=== PATIENT | female | born 1975 | race Caucasian/White ===

== ENCOUNTER 2016-06-12 17:41 | Emergency (ER) | payer MEDICARE, MEDICAID ==
--- NOTE | 2016-06-12 17:52 | ER Document Report ---
ED Medical Screen (RME) - General Stated Complaint: DIFFICULTY BREATHING/ HIVES Time seen by provider: 17:48 Mode of Arrival: Ambulatory Information source: Patient Notes: 41-year-old female presents to ED for shortness of breath. She states she's been here multiple times for breathing problems due to mold in her house. Today she feels like someone is squeezing her lungs and the hives had just started about 2 weeks ago. She states no new medications and no changes. Primary doctor is Dr Flores who she sees moderately due to her long problems with the mold in her house she states the itching and she is scratching them and has multiple scratches. She states her wheezing is much worse. I have greeted and performed a rapid initial assessment of this patient. A comprehensive ED assessment and evaluation of the patient, analysis of test results and completion of medical decision making process will be conducted by an additional ED providers. TRAVEL OUTSIDE OF THE [place] IN LAST 30 DAYS: No - Related Data Allergies/Adverse Reactions: cefuroxime axetil [From Ceftin] Allergy (Intermediate, Verified 06/12/16 17:44) Hives voriconazole [From Vfend] Adverse Reaction (Mild, Verified 06/12/16 17:44) Skin Redness Past Medical History - Past Medical History Cardiac Medical History: Denies: Hx Coronary Artery Disease, Hx Heart Attack, Hx Hypertension, Hx Pulmonary Embolism Pulmonary Medical History: Reports: Hx Asthma, Hx Bronchitis, Hx COPD - inhalers , Hx Pneumonia Denies: Hx Respiratory Failure, Hx Sleep Apnea, Hx Tuberculosis Neurological Medical History: Reports: Hx Cerebrovascular Accident - 1999,no residual. Denies: Hx Seizures Renal/ Medical History: Denies: Hx Kidney Stones, Hx Peritoneal Dialysis Malignancy Medical History: Denies: Hx Lung Cancer Musculoskeltal Medical History: Reports Hx Arthritis - RA Psychiatric Medical History: Reports: Hx Anxiety, Hx Depression Past Surgical History: Reports: Hx Section - x 3, Hx Tubal Ligation. Denies: Hx Pacemaker - Immunizations Immunizations up to date: Yes Hx Diphtheria, Pertussis, Tetanus Vaccination: Yes Physical Exam - Vital signs Vitals: Temp Pulse Resp BP Pulse Ox 97.5 F 115 H 20 135/78 H 100 06/12/16 17:46 06/12/16 17:46 06/12/16 17:46 06/12/16 17:46 06/12/16 17:46 Course - Vital Signs Vital signs: Temp Pulse Resp BP Pulse Ox 97.5 F 115 H 20 135/78 H 100 06/12/16 17:46 06/12/16 17:46 06/12/16 17:46 06/12/16 17:46 06/12/16 17:46
[2016-06-12 18:16] LABS: ABSOLUTE BASOPHILS # (AUTO) 0.1 10^3/uL (0.0-0.2); ABSOLUTE EOSINOPHILS # (AUTO) 0.2 10^3/uL (0.0-0.6); ABSOLUTE LYMPHOCYTES (AUTO) 2.7 10^3/uL (0.5-4.7); ABSOLUTE MONOCYTES (AUTO) 0.7 10^3/uL (0.1-1.4); ABSOLUTE NEUT (AUTO) 5.1 10^3/uL (1.7-8.2); BASOPHILS % (AUTO) 0.6 % (0-2); HEMATOCRIT 39.4 % (36.0-47.0); HEMOGLOBIN 12.6 g/dL (12.0-15.5); HGB HCT DIFFERENCE -1.6; LYMPHOCYTES % (AUTO) 30.9 % (13-45); MEAN CORPUSCULAR HEMOGLOBIN 27.8 pg (27.0-33.4); MEAN CORPUSCULAR VOLUME 87 fl (80-97); MONOCYTES % (AUTO) 7.7 % (3-13); RED BLOOD COUNT 4.53 10^6/uL (3.72-5.28); SEGMENTED NEUTROPHILS % (AUTO) 58.8 % (42-78); WHITE BLOOD COUNT 8.6 10^3/uL (4.0-10.5)
[2016-06-12 18:43] LABS: ALANINE AMINOTRANSFERASE 24 U/L (9-52); ALBUMIN 4.5 g/dL (3.5-5.0); ALKALINE PHOSPHATASE 104 U/L (38-126); ANION GAP 16 (5-19); ASPARTATE AMINO TRANSFERASE 35 U/L (14-36); BILIRUBIN,TOTAL 0.5 mg/dL (0.2-1.3); BLOOD UREA NITROGEN 9 mg/dL (7-20); CARBON DIOXIDE 21 mmol/L (22-30); CHLORIDE 102 mmol/L (98-107); CREATININE RESULT 0.88 mg/dL (0.52-1.25); GLUCOSE 180 mg/dL (75-110); POTASSIUM 3.9 mmol/L (3.6-5.0); SODIUM 138.6 mmol/L (137-145); TOTAL PROTEIN 7.4 g/dL (6.3-8.2)
[2016-06-12] MEDS ORDERED: HYDROXYZINE PAMOATE 25 MG CAPSULE #4 (ER DISP) PO ONE (19:32)
--- NOTE | 2016-06-12 19:38 | ER Document Report ---
ED General - General Chief Complaint: Breathing Difficulty Stated Complaint: DIFFICULTY BREATHING/ HIVES Mode of Arrival: Ambulatory TRAVEL OUTSIDE OF THE [place] 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 Patient denies any fevers chills nausea vomiting. Patient states she is waiting to be placed on an experimental drug trial for her asthma and that her club attendant is concerned about the hives that she would not be allowed to be on the experimental drug trial. Otherwise patient has no obvious distress - Related Data Allergies/Adverse Reactions: cefuroxime axetil [From Ceftin] Allergy (Intermediate, Verified 06/12/16 17:44) Hives voriconazole [From Vfend] Adverse Reaction (Mild, Verified 06/12/16 17:44) Skin Redness Past Medical History - General Information source: Patient - Social History Smoking Status: Never Smoker Chew tobacco use (# tins/day): No Family History: Reviewed & Not Pertinent Patient has suicidal ideation: No Patient has homicidal ideation: No - Past Medical History Cardiac Medical History: Denies: Hx Coronary Artery Disease, Hx Heart Attack, Hx Hypertension, Hx Pulmonary Embolism Pulmonary Medical History: Reports: Hx Asthma, Hx Bronchitis, Hx COPD - inhalers , Hx Pneumonia Denies: Hx Respiratory Failure, Hx Sleep Apnea, Hx Tuberculosis Neurological Medical History: Reports: Hx Cerebrovascular Accident - 1999,no residual. Denies: Hx Seizures Renal/ Medical History: Denies: Hx Kidney Stones, Hx Peritoneal Dialysis Malignancy Medical History: Denies: Hx Lung Cancer Musculoskeltal Medical History: Reports Hx Arthritis - RA Psychiatric Medical History: Reports: Hx Anxiety, Hx Depression Past Surgical History: Reports: Hx Section - x 3, Hx Tubal Ligation. Denies: Hx Pacemaker - Immunizations Immunizations up to date: Yes Hx Diphtheria, Pertussis, Tetanus Vaccination: Yes Hx Pneumococcal Vaccination: 03/25/13 Review of Systems - Review of Systems Constitutional: No symptoms reported EENT: No symptoms reported Cardiovascular: No symptoms reported Respiratory: Short of breath Gastrointestinal: No symptoms reported Genitourinary: No symptoms reported Female Genitourinary: No symptoms reported Musculoskeletal: No symptoms reported Skin: Other - Rash Hematologic/Lymphatic: No symptoms reported Neurological/Psychological: No symptoms reported -: Yes All other systems reviewed and negative Physical Exam - Vital signs Vitals: Temp Pulse Resp BP Pulse Ox 97.5 F 115 H 20 135/78 H 100 06/12/16 17:46 06/12/16 17:46 06/12/16 17:46 06/12/16 17:46 06/12/16 17:46 Interpretation: Normal - General General appearance: Appears well, Alert - HEENT Head: Normocephalic, Atraumatic Eyes: Normal Pupils: PERRL - Respiratory Respiratory status: No respiratory distress Chest status: Nontender Breath sounds: Normal Chest palpation: Normal - Cardiovascular Rhythm: Regular Heart sounds: Normal auscultation Murmur: No - Abdominal Inspection: Normal Distension: No distension Bowel sounds: Normal Tenderness: Nontender Organomegaly: No organomegaly - Back Back: Normal, Nontender - Extremities General upper extremity: Normal inspection, Nontender, Normal color, Normal ROM , Normal temperature General lower extremity: Normal inspection, Nontender, Normal color, Normal ROM , Normal temperature, Normal weight bearing. No: Adonay's sign - Neurological Neuro grossly intact: Yes Cognition: Normal Orientation: AAOx4 [place] Coma Scale Eye Opening: Spontaneous [place] Coma Scale Verbal: Oriented [place] Coma Scale Motor: Obeys Commands [place] Coma Scale Total: 15 Speech: Normal Motor strength normal: LUE, RUE, LLE, RLE Sensory: Normal - Psychological Associated symptoms: Normal affect, Normal mood - Skin Skin Temperature: Warm Skin Moisture: Dry Skin Color: Other - Diffuse rash blanchable Course - Re-evaluation Re-evalutation: 06/12/16 23:06 Patient with a nondescriptive hives. Patient will be given Atarax patient was encouraged follow-up with her primary care physician. - Vital Signs Vital signs: Temp Pulse Resp BP Pulse Ox 98 F 78 18 113/62 100 06/12/16 19:44 06/12/16 19:44 06/12/16 19:44 06/12/16 19:44 06/12/16 19:44 - Laboratory Result Diagrams: 06/12/16 17:56 06/12/16 17:56 Laboratory results interpreted by me: 06/12/16 17:56 Carbon Dioxide 21 L Glucose 180 H Discharge - Discharge Clinical Impression: Hives Asthma Qualifiers: Asthma severity: unspecified severity Asthma complication type: uncomplicated Qualified Code(s): J45.909 - Unspecified asthma, uncomplicated Condition: Good Disposition: HOME, SELF-CARE Instructions: Asthma ([facility]), Acute Urticaria ([facility]) Additional Instructions: Take medications as prescribed. Return to the ER symptoms worsen. Continue her home medications as present prescribed Follow-up with your physician in 2-3 days Prescriptions: Hydroxyzine Pamoate [Vistaril 25 mg Capsule] 25 mg PO Q6 #14 capsule Referrals: CHIDI PEREYRA MD [Primary Care Provider] - Follow up as needed
[2016-06-12 19:48] VITALS: BP 113/62
== END 2016-06-12 19:44 | disposition home or self-care (01) ==
LOC: ER 17:41 → EEVIPCON 17:41 → ER 19:44
DX: J45.909 Unspecified asthma, uncomplicated (principal); L50.9 Urticaria, unspecified; R06.02 Shortness of breath
CPT/HCPCS: 99283; 36415; 84703; 85025; 80053; 71020; J3490

== ENCOUNTER 2016-12-22 18:24 | Emergency (ER) | payer MEDICARE, MEDICAID ==
[2016-12-22] MEDS ORDERED: IPRATROPIUM/ALBUTEROL 0.5-2.5 MG/3 ML AMPUL NEB ONE (18:51)
--- NOTE | 2016-12-22 18:55 | ER Document Report ---
ED Medical Screen (RME) - General Chief Complaint: Shortness Of Breath Stated Complaint: COUGH Time Seen by Provider: 12/22/16 18:50 Notes: Patient states she has a history of chronic lung disease and is followed by pulmonology. She states that over the last several days she is a worse cough and or shortness of breath. She has been using her nebulizer at home with no relief. She also uses multiple inhalers with no relief. She also takes daily 10 mg p.o. prednisone. TRAVEL OUTSIDE OF THE [place] IN LAST 30 DAYS: No - Related Data Allergies/Adverse Reactions: cefuroxime axetil [From Ceftin] Allergy (Intermediate, Verified 12/22/16 18:28) Hives voriconazole [From Vfend] Adverse Reaction (Mild, Verified 12/22/16 18:28) Skin Redness Past Medical History - Social History Chew tobacco use (# tins/day): No Frequency of alcohol use: Rare Drug Abuse: None - Past Medical History Cardiac Medical History: Denies: Hx Coronary Artery Disease, Hx Heart Attack, Hx Hypertension, Hx Pulmonary Embolism Pulmonary Medical History: Reports: Hx Asthma, Hx Bronchitis, Hx COPD - inhalers , Hx Pneumonia Denies: Hx Respiratory Failure, Hx Sleep Apnea, Hx Tuberculosis Neurological Medical History: Reports: Hx Cerebrovascular Accident - 1999,no residual. Denies: Hx Seizures Renal/ Medical History: Denies: Hx Kidney Stones, Hx Peritoneal Dialysis Malignancy Medical History: Denies: Hx Lung Cancer Musculoskeltal Medical History: Reports Hx Arthritis - RA Psychiatric Medical History: Reports: Hx Anxiety, Hx Depression Past Surgical History: Reports: Hx Section - x 3, Hx Tubal Ligation. Denies: Hx Pacemaker - Immunizations Immunizations up to date: Yes Hx Diphtheria, Pertussis, Tetanus Vaccination: Yes Physical Exam - Vital signs Vitals: Temp Pulse Resp BP Pulse Ox 98.8 F 112 H 20 110/64 98 12/22/16 18:28 12/22/16 18:28 12/22/16 18:28 12/22/16 18:28 12/22/16 18:28 Course - Vital Signs Vital signs: Temp Pulse Resp BP Pulse Ox 98.8 F 112 H 20 110/64 98 12/22/16 18:28 12/22/16 18:28 12/22/16 18:28 12/22/16 18:28 12/22/16 18:28
[2016-12-22] MEDS ORDERED: METHYLPREDNISOLONE INJ 125 MG/2 ML SDV IV ONE (19:34)
[2016-12-22] MEDS ORDERED: MAGNESIUM SULFATE/D5W 100 ML IV ONE (19:40)
--- NOTE | 2016-12-22 19:48 | ER Document Report ---
ED Respiratory Problem - General Chief Complaint: Shortness Of Breath Stated Complaint: COUGH Time Seen by Provider: 12/22/16 18:50 Mode of Arrival: Ambulatory Information source: Patient Notes: 41-year-old female presents to ED for difficulty breathing with a history of COPD and multiple other lung diseases. She states she has never smoked. She has had worsening of her cough and shortness of breath over the left last several days. She states she just got back from [place] where she went for her anniversary. 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 She states she has been using her nebulizer at home with no relief. She is on multiple inhalers to include Pulmicort with no relief. She also takes daily 10 mg of prednisone. She states she was scheduled to see her informatics consultant on the but he had an emergency out of town and was not able to see her and she is supposed to call him when she returns from [place] which she returned today. TRAVEL OUTSIDE OF THE [place] IN LAST 30 DAYS: No - HPI Patient complains to provider of: COPD, Cough, Short of breath Onset: Other - Chronic worse for the last couple days Duration: Worse/persistent Initiating Event: URI, Other - Travel Quality of pain: Achy, Other - tight Severity: Moderate Pain Level: 4 Context: Hx COPD Short of Breath: Moderate Cough: Nonproductive Sputum amount: None At home treatment: Bronchodilators, Inhaled steroids, Oral steroids Associated symptoms: Cough, Short of breath, Wheezing Similar symptoms previously: Yes Recently seen / treated by doctor: No - Related Data Allergies/Adverse Reactions: cefuroxime axetil [From Ceftin] Allergy (Intermediate, Verified 12/22/16 18:28) Hives voriconazole [From Vfend] Adverse Reaction (Mild, Verified 12/22/16 18:28) Skin Redness Past Medical History - General Information source: Patient - Social History Smoking Status: Never Smoker Cigarette use (# per day): No Chew tobacco use (# tins/day): No Smoking Education Provided: No - Patient. Patient Frequency of alcohol use: Rare Drug Abuse: None Lives with: Family Family History: Reviewed & Not Pertinent - Past Medical History Cardiac Medical History: Reports: None Pulmonary Medical History: Reports: Hx Bronchitis, Hx COPD - inhalers, Hx Pneumonia Neurological Medical History: Reports: Hx Cerebrovascular Accident - 1999,no residual Endocrine Medical History: Reports: None Renal/ Medical History: Reports: None Malignancy Medical History: Reports: None GI Medical History: Reports: None Musculoskeltal Medical History: Reports Hx Arthritis - RA Skin Medical History: Reports None Psychiatric Medical History: Reports: Hx Anxiety, Hx Depression Traumatic Medical History: Reports: None Infectious Medical History: Reports: None Past Surgical History: Reports: Hx Section - x 3, Hx Tubal Ligation - Immunizations Immunizations up to date: Yes Hx Diphtheria, Pertussis, Tetanus Vaccination: Yes Hx Pneumococcal Vaccination: 03/25/13 Review of Systems - Review of Systems Constitutional: No symptoms reported EENT: No symptoms reported Cardiovascular: No symptoms reported Respiratory: Cough, Short of breath, Wheezing Gastrointestinal: No symptoms reported Genitourinary: No symptoms reported Female Genitourinary: No symptoms reported Musculoskeletal: No symptoms reported Skin: No symptoms reported Hematologic/Lymphatic: No symptoms reported Neurological/Psychological: No symptoms reported -: Yes All other systems reviewed and negative Physical Exam - Vital signs Vitals: Temp Pulse Resp BP Pulse Ox 98.8 F 112 H 20 110/64 98 12/22/16 18:28 12/22/16 18:28 12/22/16 18:28 12/22/16 18:28 12/22/16 18:28 Interpretation: Normal - General General appearance: Appears well, Alert - HEENT Head: Normocephalic, Atraumatic Eyes: Normal Pupils: PERRL Ears: Normal External canal: Normal Tympanic membrane: Normal Nasal: Swelling, Clear rhinorrhea Pharynx: Normal Neck: Normal - Respiratory Respiratory status: No respiratory distress Chest status: Nontender Breath sounds: Decreased air movement, Nonproductive cough, Wheezing Chest palpation: Normal - Cardiovascular Rhythm: Regular Heart sounds: Normal auscultation Murmur: No - Abdominal Inspection: Normal Distension: No distension Bowel sounds: Normal Tenderness: Nontender Organomegaly: No organomegaly - Back Back: Normal, Nontender - Extremities General upper extremity: Normal inspection, Nontender, Normal color, Normal ROM , Normal temperature General lower extremity: Normal inspection, Nontender, Normal color, Normal ROM , Normal temperature, Normal weight bearing. No: Adonay's sign - Neurological Neuro grossly intact: Yes Cognition: Normal Orientation: AAOx4 [place]nes Coma Scale Eye Opening: Spontaneous [place] Coma Scale Verbal: Oriented [place] Coma Scale Motor: Obeys Commands [place] Coma Scale Total: 15 Speech: Normal Motor strength normal: LUE, RUE, LLE, RLE Sensory: Normal - Psychological Associated symptoms: Normal affect, Normal mood - Skin Skin Temperature: Warm Skin Moisture: Dry Skin Color: Normal Course - Re-evaluation Re-evalutation: 12/23/16 07:44 Patient is very short of breath with wheezing. She was treated with Solu- Medrol albuterol DuoNeb and magnesium. She was then monitored until she was able to walk and keep her sats up with no elevation and pulse that she was discharged home with prescription for prednisone. She states she has albuterol nebulizer and inhaler as well as Pulmicort. - Vital Signs Vital signs: Temp Pulse Resp BP Pulse Ox 98.2 F 100 18 117/71 97 12/23/16 01:10 12/23/16 01:10 12/23/16 01:10 12/23/16 01:10 12/23/16 01:10 - Laboratory Result Diagrams: 12/22/16 20:22 12/22/16 21:30 Laboratory results interpreted by me: 12/22/16 12/22/16 12/22/16 20:22 20:22 21:30 Hgb 8.2 L Hct 26.0 L MCV 65 L MCH 20.3 L MCHC 31.4 L RDW 17.4 H Eosinophils % 6.9 H Glucose 111 H Magnesium 2.4 H Ferritin 5.26 L Vitamin B12 217.0 L Urine Urobilinogen 4.0 H Discharge - Discharge Clinical Impression: COPD exacerbation Anemia Qualifiers: Anemia type: unspecified type Qualified Code(s): D64.9 - Anemia, unspecified Condition: Stable Disposition: HOME, SELF-CARE Additional Instructions: Chronic Obstructive Lung Disease You have chronic obstructive lung disease (COPD). The symptoms come from emphysema (damage to small airways, with trapping of air in large sacks in the lung) and chronic bronchitis (repeated infection and damage to larger airways). The cause is almost always cigarette smoking, although dust exposure, asthma, and infections contribute. You should avoid fumes, dust, and smoke (especially tobacco smoke). Your condition will flare from time to time. There is no cure, but the symptoms can be treated. Bronchodilators (asthma medicine) are often helpful. Antibiotics help when infection is present. When shortness of breath is severe, we may prescribe cortisone medication. If medicine doesn't help enough, we can arrange for you to have an oxygen tank at home. Notify your doctor at once if sputum becomes thick, foul, or bloody, if you develop a fever or chest pain, or if your shortness of breath worsens. STEROID MEDICATION: You have been given an injection of or oral medicine of the cortisone/ steroid class. This medication is used to control inflammation or allergy. Stew t is usually only given for a short period of time, until the acute process subsides. There are usually no side effects from short-term use of cortisone-like medications. Some persons feel an increased sense of well-being and are not sleepy at bedtime. Long-term use of cortisone medications is best avoided, unless required for a severe condition. If your condition does not remit, or relapses after the course of corticosteroid medication, you should consult your physician. INHALED BRONCHODILATORS: You have received treatment(s) of and/or prescription for an inhaled bronchodilator -- a medication which stimulates the airways in the lung to dilate. This improves the flow of air in asthma, bronchitis, and emphysema. These medicines have some similarity to adrenaline, and can cause similar side effects: shakiness, racing heart, and a sense of nervousness. These side effects decrease with time. Contact your doctor if these side effects are severe. Do not over-use the medicine. Too-frequent use of the inhaler may make it ineffective. Call your doctor if the inhaler is not controlling your symptoms at the prescribed doses. SMOKING: If you smoke, you should stop smoking. The tar and chemicals in cigarette smoke are harmful. Smoking has been shown to cause: emphysema chronic bronchitis lung cancer mouth and throat cancer stomach and pancreas cancer premature aging defects In addition, smoking increases ear and lung infections in children of smokers. AZITHROMYCIN: Azithromycin (Zithromax) is a broad spectrum antibiotic in the same class as erythromycin. It can treat a variety of bacterial infections, but is most frequently used for respiratory infections. Azithromycin is extremely long-lasting. It accumulates in body tissues and continues to kill bacteria for many days. In order to improve absorption, Azithromycin should be taken at least one hour before or two hours after a meal. It does not have the same strong tendency to upset the stomach as erythromycin and is usually very well tolerated. Patients who have had a rash or other true allergic reactions to erythromycin should not take this medication. Call if you develop gastrointestinal distress, severe diarrhea, rash, hives, itching, or shortness of breath. USE OF ACETAMINOPHEN (Tylenol): Acetaminophen may be taken for pain relief or fever control. It's much safer than aspirin, offering a wider range of "safe" dosages. It is safe during . Some brand names are Tylenol, Panadol, Datril, Anacin 3, Tempra, and Liquiprin. Acetaminophen can be repeated every four hours. The following are maximum recommended dosages: WEIGHT Dose Drops Elixir Chewable( 80mg) (LBS.) drprs=droppers tsp=teaspoon 6 40 mg 0.4 ml (1/2) 6-11 80 mg 0.8 ml (full) tsp 1 tab 12-16 120 mg 1 1/2 drprs 3/4 tsp 1 1/2 tabs 17-23 160 mg 2 drprs 1 tsp 2 tabs 24-30 240 mg 3 drprs 1 1/2 tsp 3 tabs 30-35 320 mg 2 tsp 4 tabs 36-41 360 mg 2 1/4 tsp 4 1/2 tabs 42-47 400 mg 2 1/2 tsp 5 tabs 48-53 480 mg 3 tsp 6 tabs 54-59 520 mg 3 1/4 tsp 6 1/2 tabs 60-64 560 mg 3 1/2 tsp 7 tabs 65-70 600 mg 3 3/4 tsp 7 1/2 tabs 71-76 640 mg 4 tsp 8 tabs 77-82 720 mg 4 1/2 tsp 9 tabs 83-88 800 mg 5 tsp 10 tabs >89 pounds or adults 650 mg to 900 mg Acetaminophen can be repeated every four hours. Maximum dose not to exceed 4000 mg a day. These maximum recommended dosages are slightly higher than the dosages written on the product container, but these dosages are very safe and below the toxic dosage for acetaminophen. FOLLOW-UP CARE: If you have been referred to a physician for follow-up care, call the physician s office for an appointment as you were instructed or within the next two days. If you experience worsening or a significant change in your symptoms, notify the physician immediately or return to the Emergency Department at any time for re-evaluation. Prescriptions: Azithromycin [Zithromax 250 mg Tablet] 250 mg PO ASDIR PRN #6 tablet PRN Reason: Prednisone [Sterapred Ds] 1 pkg PO ASDIR PRN 12 Days PRN Reason: Referrals: MARIA ISABEL SMITH MD [Primary Care Provider] - Follow up tomorrow
[2016-12-22] MEDS: ALBUTEROL SULFATE 0.083% NEB 2.5 MG/3 ML AMPUL NEB SCH ×2 (20:00→20:17)
--- NOTE | 2016-12-22 20:17 | RADIOLOGY REPORT (SQ) ---
EXAM DESCRIPTION: CHEST PA/LAT COMPLETED DATE/TIME: 12/22/2016 8:00 pm REASON FOR STUDY: sob/cough COMPARISON: May 2016 EXAM PARAMETERS: NUMBER OF VIEWS: two views TECHNIQUE: Digital Frontal and Lateral radiographic views of the chest acquired. RADIATION DOSE: NA LIMITATIONS: none FINDINGS: LUNGS AND PLEURA: No opacities, masses or pneumothorax. No pleural effusion. MEDIASTINUM AND HILAR STRUCTURES: No masses or contour abnormalities. HEART AND VASCULAR STRUCTURES: Heart normal size. No evidence for failure. BONES: No acute findings. HARDWARE: None in the chest. OTHER: No other significant finding. IMPRESSION: NO SIGNIFICANT RADIOGRAPHIC FINDING IN THE CHEST. TECHNICAL DOCUMENTATION: JOB ID: [id number] [employer]- All Rights Reserved
[2016-12-22 20:38] LABS: ABSOLUTE BASOPHILS # (AUTO) 0.1 10^3/uL (0.0-0.2); ABSOLUTE EOSINOPHILS # (AUTO) 0.5 10^3/uL (0.0-0.6); ABSOLUTE LYMPHOCYTES (AUTO) 2.9 10^3/uL (0.5-4.7); ABSOLUTE MONOCYTES (AUTO) 0.7 10^3/uL (0.1-1.4); ABSOLUTE NEUT (AUTO) 3.7 10^3/uL (1.7-8.2); BASOPHILS % (AUTO) 1.8 % (0-2); EOSINOPHILS % (AUTO) 6.9 % (0-6); HEMOGLOBIN 8.2 g/dL (12.0-15.5); HGB HCT DIFFERENCE -1.4; LYMPHOCYTES % (AUTO) 36.2 % (13-45); MEAN CORPUSCULAR HEMOGLOBIN 20.3 pg (27.0-33.4); MEAN CORPUSCULAR HGB CONC 31.4 g/dL (32.0-36.0); MONOCYTES % (AUTO) 8.3 % (3-13); RED BLOOD COUNT 4.02 10^6/uL (3.72-5.28); RED CELL DISTRIBUTION WIDTH 17.4 % (11.5-14.0); SEGMENTED NEUTROPHILS % (AUTO) 46.8 % (42-78); WHITE BLOOD COUNT 7.9 10^3/uL (4.0-10.5)
[2016-12-22 20:45] LABS: APPEARANCE,URINE SLIGHTLY-CLOUDY; BILIRUBIN,URINE NEGATIVE (NEGATIVE); GLUCOSE, URINE NEGATIVE (NEGATIVE); KETONES,URINE NEGATIVE (NEGATIVE); LEUKOCYTE ESTERASE,URINE NEGATIVE (NEGATIVE); NITRITE,URINE NEGATIVE (NEGATIVE); PROTEIN,URINE NEGATIVE (NEGATIVE); URINE SPECIFIC GRAVITY 1.026
[2016-12-22 20:56] LABS: ANISOCYTOSIS 1+; MICROCYTOSIS 3+; OVALOCYTES SLIGHT; POIKILOCYTOSIS SLIGHT; TARGET CELLS SLIGHT
[2016-12-22 20:59] LABS: MEAN CORPUSCULAR VOLUME 65 fl (80-97)
[2016-12-22] MEDS ORDERED: DIPHENHYDRAMINE HCL 50 MG CAPSULE PO ONE (21:07)
[2016-12-22] MEDS ORDERED: NORMAL SALINE 1000 ML 1,000 ML IV ONE (21:07)
[2016-12-22 22:08] LABS: ALANINE AMINOTRANSFERASE 33 U/L (9-52); ALBUMIN 3.6 g/dL (3.5-5.0); ALKALINE PHOSPHATASE 82 U/L (38-126); ANION GAP 10 (5-19); ASPARTATE AMINO TRANSFERASE 28 U/L (14-36); BILIRUBIN,DIRECT 0.3 mg/dL (0.0-0.4); BILIRUBIN,TOTAL 0.4 mg/dL (0.2-1.3); BLOOD UREA NITROGEN 9 mg/dL (7-20); CALCIUM 9.2 mg/dL (8.4-10.2); CARBON DIOXIDE 27 mmol/L (22-30); CHLORIDE 103 mmol/L (98-107); CREATININE RESULT 0.75 mg/dL (0.52-1.25); GLUCOSE 111 mg/dL (75-110); MAGNESIUM 2.4 mg/dL (1.6-2.3); POTASSIUM 3.8 mmol/L (3.6-5.0); SODIUM 139.6 mmol/L (137-145); TOTAL PROTEIN 6.9 g/dL (6.3-8.2)
[2016-12-22 22:55] LABS: FERRITIN 5.26 ng/mL (6.2-137.0)
[2016-12-23 01:11] VITALS: BP 117/71
[2016-12-23 11:28] LABS: PATH REVIEW PATHOLOGIST REVIEWED
== END 2016-12-23 01:10 | disposition home or self-care (01) ==
LOC: ER 18:24 → EEVIPCON 18:24 → ER 12-23 01:10
DX: J44.1 Chronic obstructive pulmonary disease with (acute) exacerbation (principal); D64.9 Anemia, unspecified; R06.02 Shortness of breath; R05 Cough; J44.9 Chronic obstructive pulmonary disease, unspecified
CPT/HCPCS: 94640 ×2; 99285; 96375; 96365; 36415; 82607; 82728; 82746; 83540; 83550; 83735; 85025; 82272; 81025; 85045; 80053; 81001; 84466; 71020; A9270 ×3; J2930; J3475; J7030; J7620

== ENCOUNTER 2017-03-12 14:32 | Emergency (ER) | payer MEDICARE, MEDICAID ==
[2017-03-12] MEDS ORDERED: ALBUTEROL SULFATE 0.083% NEB 2.5 MG/3 ML AMPUL NEB ONE (14:47)
[2017-03-12] MEDS ORDERED: IPRATROPIUM/ALBUTEROL 0.5-2.5 MG/3 ML AMPUL NEB ONE (14:47)
[2017-03-12] MEDS ORDERED: GUAIFENESIN/D-METHORPHAN (200-20 MG) SYRUP 10 ML PO ONE (15:03)
[2017-03-12] MEDS ORDERED: ONDANSETRON 4 MG TAB.RAPDIS PO ONE (15:03)
--- NOTE | 2017-03-12 15:04 | ER Document Report ---
ED Respiratory Problem - General Chief Complaint: Breathing Difficulty Stated Complaint: DIFFICULTY BREATHING Time Seen by Provider: 03/12/17 15:00 Mode of Arrival: Ambulatory Information source: Patient Notes: Pt is a 41 year old female with a history of asthma who presents to the ER today for cough, fever, chills over the last 4 days. Patient states that her asthma has gotten worse and that another doctor, and mining helper has told her that she does not have asthma. She has a follow-up appointment at [facility] coming up to give her a second opinion. She sees Dr. Dave for pulmonology. She has been taking her albuterol inhaler and other inhalers which have not been helping. TRAVEL OUTSIDE OF THE [place] IN LAST 30 DAYS: No - Related Data Allergies/Adverse Reactions: cefuroxime axetil [From Ceftin] Allergy (Intermediate, Verified 03/12/17 14:40) Hives voriconazole [From Vfend] Adverse Reaction (Mild, Verified 03/12/17 14:40) Skin Redness Past Medical History - General Information source: Patient - Social History Smoking Status: Unknown if Ever Smoked Family History: Reviewed & Not Pertinent - Past Medical History Cardiac Medical History: Denies: Hx Coronary Artery Disease, Hx Heart Attack, Hx Hypertension, Hx Pulmonary Embolism Pulmonary Medical History: Reports: Hx Asthma, Hx Bronchitis, Hx COPD - inhalers , Hx Pneumonia Denies: Hx Respiratory Failure, Hx Sleep Apnea, Hx Tuberculosis Neurological Medical History: Reports: Hx Cerebrovascular Accident - 1999,no residual. Denies: Hx Seizures Renal/ Medical History: Denies: Hx Kidney Stones, Hx Peritoneal Dialysis Malignancy Medical History: Denies: Hx Lung Cancer Musculoskeltal Medical History: Reports Hx Arthritis - RA Psychiatric Medical History: Reports: Hx Anxiety, Hx Depression Past Surgical History: Reports: Hx Section - x 3, Hx Tubal Ligation. Denies: Hx Pacemaker - Immunizations Immunizations up to date: Yes Hx Diphtheria, Pertussis, Tetanus Vaccination: Yes Hx Pneumococcal Vaccination: 03/25/13 Review of Systems - Review of Systems Constitutional: No symptoms reported EENT: No symptoms reported Cardiovascular: No symptoms reported Respiratory: See HPI Gastrointestinal: No symptoms reported Genitourinary: No symptoms reported Female Genitourinary: No symptoms reported Musculoskeletal: No symptoms reported Skin: No symptoms reported Hematologic/Lymphatic: No symptoms reported Neurological/Psychological: No symptoms reported Physical Exam - Vital signs Vitals: Temp Pulse Resp BP Pulse Ox 98.4 F 115 H 24 H 142/91 H 96 03/12/17 14:37 03/12/17 14:37 03/12/17 14:37 03/12/17 14:37 03/12/17 14:37 - Notes Notes: PHYSICAL EXAMINATION: GENERAL: Coughing, but in no acute distress. HEAD: Atraumatic, normocephalic. EYES: Pupils equal round and reactive to light, extraocular movements intact, sclera anicteric, conjunctiva are normal. ENT: ear canals without erythema or foreign body, TMs pearly mejia with good bony landmarks, nares patent, oropharynx clear without exudates. Moist mucous membranes. Airway patent NECK: Normal range of motion, supple without lymphadenopathy LUNGS: Mild expiratory wheezes throughout, no rales or rhonchi. HEART: Regular rate and rhythm without murmurs EXTREMITIES: Normal range of motion, no pitting edema. No cyanosis. NEUROLOGICAL: Cranial nerves grossly intact. Normal sensory/motor exams. PSYCH: Normal mood, normal affect. SKIN: Warm, Dry, normal turgor, no rashes or lesions noted Course - Re-evaluation Re-evalutation: 03/12/17 16:43 P chest x-ray negative for any acute pathology today. Patient will be treated with antibiotics and steroid Dosepak. Patient feels better after breathing treatment here. Oxygen saturation was 96% on room air with normal respiratory rate. 03/12/17 16:44 - Vital Signs Vital signs: Temp Pulse Resp BP Pulse Ox 98.4 F 115 H 19 128/94 H 98 03/12/17 14:37 03/12/17 14:37 03/12/17 15:00 03/12/17 14:55 03/12/17 15:00 Discharge - Discharge Clinical Impression: Bronchitis Condition: Stable Disposition: HOME, SELF-CARE Additional Instructions: Return immediately for any new or worsening symptoms. Follow up with primary care provider, call tomorrow to make followup appointment. Keep your appointment with [facility]. Prescriptions: Doxycycline Hyclate 100 mg PO BID #20 tablet Methylprednisolone [Medrol Dosepack (4 mg/Tab) 21 Tab/Dosepak] 21 tab PO ASDIR # 1 dspk
--- NOTE | 2017-03-12 16:09 | RADIOLOGY REPORT (SQ) ---
EXAM DESCRIPTION: CHEST PA/LAT COMPLETED DATE/TIME: 03/12/2017 3:52 pm REASON FOR STUDY: sob, cough, wheezing COMPARISON: 12/22/2016 Chest films 06/17/2015 CT Chest EXAM PARAMETERS: NUMBER OF VIEWS: two views TECHNIQUE: Digital Frontal and Lateral radiographic views of the chest acquired. RADIATION DOSE: NA LIMITATIONS: none FINDINGS: LUNGS AND PLEURA: No opacities, masses or pneumothorax. No pleural effusion. MEDIASTINUM AND HILAR STRUCTURES: No masses or contour abnormalities. HEART AND VASCULAR STRUCTURES: Heart normal size. No evidence for failure. BONES: No acute findings. HARDWARE: None in the chest. OTHER: No other significant finding. IMPRESSION: NO SIGNIFICANT RADIOGRAPHIC FINDING IN THE CHEST. TECHNICAL DOCUMENTATION: JOB ID: [id number] [employer]- All Rights Reserved
[2017-03-12] MEDS ORDERED: ALBUTEROL SULFATE HFA (90 MCG/PUFF) 8 GM MDI (1 MDI/ER DISP) IH PRN (16:47)
[2017-03-12 17:08] VITALS: BP 111/78
== END 2017-03-12 17:16 | disposition home or self-care (01) ==
LOC: ER 14:32
DX: J40 Bronchitis, not specified as acute or chronic (principal); R50.9 Fever, unspecified; J44.9 Chronic obstructive pulmonary disease, unspecified; Z98.51 Tubal ligation status
CPT/HCPCS: 94640 ×2; 99285; 71020; A9270 ×4; J3490; J7620; S0119

== ENCOUNTER 2017-08-02 18:32 | Emergency (ER) | payer MEDICARE, MEDICAID ==
[2017-08-02 19:03] VITALS: BP 110/83
--- NOTE | 2017-08-02 20:01 | ER Document Report ---
HPI - HPI Patient complains to provider of: Bilateral hand pain Onset: Just prior to arrival Onset/Duration: Gradual Pain Level: 4 Context: 42-year-old female complaining of dorsal left hand pain over the carpals and mid right dorsal hand pain after her squeezed her hands too hard while he got a tattoo yesterday. She thinks she needs x-rays. - REPRODUCTIVE Reproductive: DENIES: : Past Medical History - General Information source: Patient - Social History Smoking Status: Unknown if Ever Smoked Frequency of alcohol use: None Drug Abuse: None Lives with: Spouse/Significant other Family History: Reviewed & Not Pertinent Pulmonary Medical History: Reports: Hx Asthma, Hx Bronchitis, Hx COPD - INHALERS , Hx Pneumonia Neurological Medical History: Reports: Hx Cerebrovascular Accident - 1999, NO RESIDUAL Musculoskeltal Medical History: Reports Hx Arthritis - RA Psychiatric Medical History: Reports: Hx Anxiety, Hx Depression Past Surgical History: Reports: Hx Section - x 3, Hx Tubal Ligation. Denies: Hx Pacemaker - Immunizations Immunizations up to date: Yes Hx Diphtheria, Pertussis, Tetanus Vaccination: Yes Hx Pneumococcal Vaccination: 03/25/13 Vertical Provider Document - CONSTITUTIONAL Agree With Documented VS: Yes Exam Limitations: No Limitations - INFECTION CONTROL TRAVEL OUTSIDE OF THE [place] IN LAST 30 DAYS: No - HEENT HEENT: Normocephalic - NECK Neck: Supple - RESPIRATORY O2 Sat by Pulse Oximetry: 98 - MUSCULOSKELETAL/EXTREMETIES Musculoskeletal/Extremeties: MAEW, FROM, Tender - N/V intact. tender dorsal right hand over the 2nd MC, dorsal left hand over the carpels. - NEURO Level of Consciousness: Awake, Alert Motor/Sensory: No Motor Deficit, No Sensory Deficit - DERM Integumentary: Warm, Dry, No Rash Course - Re-evaluation Re-evalutation: 08/02/17 21:07 X-rays are negative per radiologist I will offer the patient Antonio bandages for comfort. which she wants - Vital Signs Vital signs: Temp Pulse Resp BP Pulse Ox 98.2 F 107 H 20 110/83 98 08/02/17 18:56 08/02/17 18:56 08/02/17 18:56 08/02/17 18:56 08/02/17 18:56 Discharge - Discharge Clinical Impression: Maikol hand and wrist crush injury Condition: Good Disposition: HOME, SELF-CARE Instructions: Antonio Wrap ([facility]), Acetaminophen, Crush Injury ([facility]) Additional Instructions: Antonio bandages for comfort Elevate Warm compress may help Return to the emergency room any concerns Tylenol for pain Referrals: ALLEGRA PICKETT DO [Primary Care Provider] - Follow up as needed
--- NOTE | 2017-08-02 20:59 | RADIOLOGY REPORT (SQ) ---
EXAM DESCRIPTION: WRIST BILATERAL 3 VIEWS COMPLETED DATE/TIME: 08/02/2017 8:47 pm REASON FOR STUDY: injury COMPARISON: None. NUMBER OF VIEWS: Three views right wrist. Three views left wrist. LIMITATIONS: None. FINDINGS: Right: No bone, joint or soft tissue abnormality. Normal carpal alignment without eviden ce of fracture. Left: No bone, joint or soft tissue abnormality. Normal carpal alignment without evidence of fractu re. OTHER: No other significant finding. IMPRESSION: NORMAL STUDY. TECHNICAL DOCUMENTATION: JOB ID: [id number] Reading location - IP/workstation name: [email or web address]
--- NOTE | 2017-08-02 21:01 | RADIOLOGY REPORT (SQ) ---
EXAM DESCRIPTION: HAND BILATERAL 3 VIEWS COMPLETED DATE/TIME: 08/02/2017 8:47 pm REASON FOR STUDY: injury COMPARISON: None. NUMBER OF VIEWS: Three views right hand. Three views left hand. LIMITATIONS: None. FINDINGS: Right: No bone, joint or soft tissue abnormality. Left: No bone, joint or soft tissue abnormality. OTHER: No other significant finding. IMPRESSION: NORMAL STUDY. TECHNICAL DOCUMENTATION: JOB ID: [id number] Reading location - IP/workstation name: [email or web address]
== END 2017-08-02 21:15 | disposition home or self-care (01) ==
LOC: ER 18:32
DX: S67.42XA Crushing injury of left wrist and hand, initial encounter (principal); S67.41XA Crushing injury of right wrist and hand, initial encounter; X58.XXXA Exposure to other specified factors, initial encounter; Z86.73 Personal history of transient ischemic attack (TIA), and cerebral infarction without residual deficits
CPT/HCPCS: 99283

== ENCOUNTER 2018-03-18 08:10 | Inpatient (IN) | payer MEDICARE, MEDICAID ==
--- NOTE | 2018-03-18 09:26 | RADIOLOGY REPORT (SQ) ---
EXAM DESCRIPTION: CHEST SINGLE VIEW COMPLETED DATE/TIME: 03/18/2018 9:15 am REASON FOR STUDY: be 7 db COMPARISON: Chest films 03/12/2017, 06/12/2016 EXAM PARAMETERS: NUMBER OF VIEWS: One view. TECHNIQUE: Single frontal radiographic view of the chest acquired. RADIATION DOSE: NA LIMITATIONS: None. FINDINGS: LUNGS AND PLEURA: No opacities, masses or pneumothorax. No pleural effusion. MEDIASTINUM AND HILAR STRUCTURES: No masses. Contour normal. HEART AND VASCULAR STRUCTURES: Heart normal in size. Normal vasculature. BONES: No acute findings. HARDWARE: None in the chest. OTHER: No other significant finding. IMPRESSION: NO ACUTE RADIOGRAPHIC FINDING IN THE CHEST. TECHNICAL DOCUMENTATION: JOB ID: [id number] [employer]- All Rights Reserved Reading location - IP/workstation name: [email or web address]
--- NOTE | 2018-03-18 09:33 | ER Document Report ---
ED Respiratory Problem <AUDREY GATES - Last Filed: 03/18/18 12:33> - General Mode of Arrival: Ambulatory Information source: Patient TRAVEL OUTSIDE OF THE [place] IN LAST 30 DAYS: No <LENY GALVEZ - Last Filed: 03/18/18 12:49> - General Chief Complaint: Shortness Of Breath Stated Complaint: COUGHING/DIFFICULTY BREATHING Time Seen by Provider: 03/18/18 09:23 Notes: 42-year-old female who presents to the emergency department today with complaints of shortness of breath. Patient states she began having flu-like symptoms around March 06 and her shortness of breath began around that time however it has gotten much worse over the last few days and last night her previously dry cough turned into a productive cough. Patient states she is chronically on 10 mg of prednisone x2 times a day and has been for years. Patient states the last time she was on 60 mg of prednisone was about 3 months ago. (LENY GALVEZ) - Related Data Allergies/Adverse Reactions: cefuroxime axetil [From Ceftin] Allergy (Intermediate, Verified 08/02/17 18:37) Hives voriconazole [From Vfend] Adverse Reaction (Mild, Verified 08/02/17 18:37) Skin Redness Past Medical History - General Information source: Patient - Social History Smoking Status: Never Smoker Cigarette use (# per day): No Frequency of alcohol use: None Drug Abuse: None Lives with: Family Family History: Reviewed & Not Pertinent Pulmonary Medical History: Reports: Hx Asthma, Hx Bronchitis, Hx COPD - INHALERS , Hx Pneumonia Neurological Medical History: Reports: Hx Cerebrovascular Accident - 1999, NO RESIDUAL Musculoskeletal Medical History: Reports Hx Arthritis - RA Psychiatric Medical History: Reports: Hx Anxiety, Hx Depression Past Surgical History: Reports: Hx Section - x 3, Hx Tubal Ligation - Immunizations Immunizations up to date: Yes Hx Diphtheria, Pertussis, Tetanus Vaccination: Yes Hx Pneumococcal Vaccination: 03/25/13 <LENY GALVEZ - Last Filed: 03/18/18 12:49> Review of Systems - Review of Systems Constitutional: No symptoms reported EENT: No symptoms reported Cardiovascular: No symptoms reported Respiratory: See HPI, Cough, Short of breath, Sputum, Wheezing Gastrointestinal: No symptoms reported Genitourinary: No symptoms reported Female Genitourinary: No symptoms reported Musculoskeletal: No symptoms reported Skin: No symptoms reported Hematologic/Lymphatic: No symptoms reported Neurological/Psychological: No symptoms reported -: Yes All other systems reviewed and negative <LENY GALVEZ - Last Filed: 03/18/18 12:49> Physical Exam <AUDREY GATES - Last Filed: 03/18/18 12:33> <LENY GALVEZ - Last Filed: 03/18/18 12:49> - Vital signs Vitals: Temp Pulse Resp BP Pulse Ox 98.9 F 119 H 16 134/53 H 94 03/18/18 08:15 03/18/18 08:15 03/18/18 08:15 03/18/18 08:15 03/18/18 08:15 - Notes Notes: Physical Exam: General: Alert, appears well. HEENT: Normocephalic. Atraumatic. PERRL. Extraocular movements intact. Oropharynx clear. Neck: Supple. Non-tender. Respiratory: No respiratory distress. Tight inspiratory and expiratory wheezing bilaterally with minimal rhonchi. Cardiovascular: Regular rate and rhythm. Abdominal: Normal Inspection. Non-tender. No distension. Normal Bowel Sounds. Back: Non-tender. No deformity or step off. Extremities: Moves all four extremities. Upper extremities: Normal inspection. Normal ROM. Lower extremities: Normal inspection. No edema. Normal ROM. Neurological: Normal cognition. AAOx4. Normal speech. Psychological: Normal affect. Normal Mood. Skin: Warm. Dry. Normal color. (LENY GALVEZ) Course - Laboratory Result Diagrams: 03/18/18 09:43 03/18/18 09:43 - Diagnostic Test Radiology reviewed: Image reviewed, Reports reviewed - No acute findings seen on chest x-ray - EKG Interpretation by Id EKG shows normal: Sinus rhythm, [place], Intervals, QRS Complexes. abnormal: ST-T Waves - Diffuse nonspecific T abnormalities Rate: Tachycardia - 111 When compared to previous EKG there are: No significant change - Consults Dr. Harris Time consulted: 12:35 Consulted provider: will come to ER <AUDREY GATES - Last Filed: 03/18/18 12:33> - Laboratory Result Diagrams: 03/18/18 09:43 03/18/18 09:43 <LENY GALVEZ - Last Filed: 03/18/18 12:49> - Re-evaluation Re-evalutation: 03/18/18 12:33 After IV fluids, Solu-Medrol, multiple breathing treatments, 2 g of magnesium sulfate, the patient continues to have diffuse tight inspiratory expiratory wheezes with prolonged expiratory phase. Her room air pulse ox was 100% but she remains a little tachypneic. She states that her breathing is much worse than baseline despite all the aforementioned treatment. (AUDREY AGTES) - Vital Signs Vital signs: Temp Pulse Resp BP Pulse Ox 98.9 F 119 H 16 134/53 H 94 03/18/18 08:15 03/18/18 08:15 03/18/18 08:15 03/18/18 08:15 03/18/18 08:15 - Laboratory Laboratory results interpreted by me: 03/18/18 03/18/18 09:43 09:43 Hgb 11.8 L Hct 35.8 L MCV 77 L MCH 25.2 L RDW 16.0 H Eosinophils % 11.1 H Absolute Eosinophils 0.7 H Urine Protein 30 H Urine Ketones TRACE H Urine Blood SMALL H Urine Bilirubin SMALL H Urine Urobilinogen 4.0 H Critical Care Note - Critical Care Note Total time excluding time spent on procedures (mins): 40 <AUDREY GATES - Last Filed: 03/18/18 12:33> Discharge - Discharge Admitting Provider: Hospitalist Unit Admitted: IMCU <AUDREY GATES - Last Filed: 03/18/18 12:33> <LENY GALVEZ - Last Filed: 03/18/18 12:49> - Discharge Clinical Impression: Acute exacerbation of COPD with asthma Condition: Fair Disposition: ADMITTED INPATIENT Scribe Attestation: 03/18/18 09:55 I personally performed the services described in the documentation, reviewed and edited the documentation which was dictated to the scribe in my presence, and it accurately records my words and actions. (AUDREY GATES) Scribe Documentation - Scribe Written by Aaron:: Aaron Moura, 03/18/2018, 0939 acting as scribe for :: Mitul <LENY GALVEZ - Last Filed: 03/18/18 12:49>
[2018-03-18] MEDS ORDERED: METHYLPREDNISOLONE INJ 125 MG/2 ML SDV IV ONE (09:40)
[2018-03-18] MEDS ORDERED: IPRATROPIUM/ALBUTEROL 0.5-2.5 MG/3 ML AMPUL NEB ONE (09:40)
[2018-03-18] MEDS ORDERED: ALBUTEROL SULFATE 0.083% NEB 2.5 MG/3 ML AMPUL NEB ONE ×2 (09:55→11:18)
[2018-03-18 10:02] LABS: ABSOLUTE BASOPHILS # (AUTO) 0.1 10^3/uL (0.0-0.2); ABSOLUTE EOSINOPHILS # (AUTO) 0.7 10^3/uL (0.0-0.6); ABSOLUTE LYMPHOCYTES (AUTO) 1.8 10^3/uL (0.5-4.7); ABSOLUTE MONOCYTES (AUTO) 0.4 10^3/uL (0.1-1.4); ABSOLUTE NEUT (AUTO) 3.5 10^3/uL (1.7-8.2); BASOPHILS % (AUTO) 1.2 % (0-2); EOSINOPHILS % (AUTO) 11.1 % (0-6); HEMATOCRIT 35.8 % (36.0-47.0); HEMOGLOBIN 11.8 g/dL (12.0-15.5); LYMPHOCYTES % (AUTO) 27.7 % (13-45); MEAN CORPUSCULAR HEMOGLOBIN 25.2 pg (27.0-33.4); MEAN CORPUSCULAR HGB CONC 32.9 g/dL (32.0-36.0); MEAN CORPUSCULAR VOLUME 77 fl (80-97); MONOCYTES % (AUTO) 6.6 % (3-13); PLATELET COUNT 413 10^3/uL (150-450); RED BLOOD COUNT 4.66 10^6/uL (3.72-5.28); SEGMENTED NEUTROPHILS % (AUTO) 53.4 % (42-78); TOTAL CELLS COUNTED % (AUTO) 100 %; WHITE BLOOD COUNT 6.6 10^3/uL (4.0-10.5)
[2018-03-18 10:07] LABS: APPEARANCE,URINE SLIGHTLY-CLOUDY; BILIRUBIN,URINE SMALL (NEGATIVE); COLOR,URINE YELLOW; GLUCOSE, URINE NEGATIVE (NEGATIVE); KETONES,URINE TRACE mg/dL (NEGATIVE); LEUKOCYTE ESTERASE,URINE NEGATIVE (NEGATIVE); NITRITE,URINE NEGATIVE (NEGATIVE); PROTEIN,URINE 30 mg/dL (NEGATIVE); URINE SPECIFIC GRAVITY 1.027
[2018-03-18 10:20] LABS: ALANINE AMINOTRANSFERASE 19 U/L (9-52); ALBUMIN 4.4 g/dL (3.5-5.0); ALKALINE PHOSPHATASE 74 U/L (38-126); ANION GAP 11 (5-19); ASPARTATE AMINO TRANSFERASE 21 U/L (14-36); BILIRUBIN,DIRECT 0.2 mg/dL (0.0-0.4); BILIRUBIN,TOTAL 0.5 mg/dL (0.2-1.3); BLOOD UREA NITROGEN 10 mg/dL (7-20); CALCIUM 9.4 mg/dL (8.4-10.2); CARBON DIOXIDE 30 mmol/L (22-30); CHLORIDE 103 mmol/L (98-107); CREATINE KINASE 78 U/L (30-135); GLUCOSE 108 mg/dL (75-110); POTASSIUM 4.1 mmol/L (3.6-5.0); SODIUM 144.1 mmol/L (137-145); TOTAL PROTEIN 7.7 g/dL (6.3-8.2)
[2018-03-18] MEDS ORDERED: NORMAL SALINE 1000 ML 1,000 ML IV ONE (10:23)
[2018-03-18] MEDS: MAGNESIUM SULFATE/D5W 1 GM/100 ML RTUPB IV SCH ×2 (10:27→10:33)
[2018-03-18 10:32] LABS: CREATINE KINASE MB 0.53 ng/mL (<4.55)
[2018-03-18 10:34] LABS: TROPONIN I < 0.012 ng/mL
[2018-03-18] MEDS ORDERED: ACETAMINOPHEN 325 MG TABLET PO PRN (13:04)
[2018-03-18] MEDS ORDERED: MAGNESIUM HYDROXIDE SUSP 30 ML UDCUP PO PRN (13:04)
--- NOTE | 2018-03-18 14:04 | PDOC H&P ---
History of Present Illness Admission Date/PCP: 03/18/18 12:45 ALLEGRA PICKETT DO Patient complains of: Shortness of breath History of Present Illness: ARABELLA SINGLETON is a 42 year old female with a history of asthma diagnosed in 2010. She has had frequent hospitalizations but never had mechanical ventilation for asthma. Patient states approximately 2 weeks ago she developed cough with yellow to green sputum she has had wheezing ever since. She has nebulizer in albuterol treatments at home which she increase the frequency and is also on nebulized Pulmicort. She also has inhalers none of this helped ease her wheezing and after 2 weeks she presented to the emergency room. Upon arrival in the emergency room a chest x-ray showed no acute infiltrate her white count was normal. Her saturations were above 90 she had significant inspiratory and expiratory wheezing. She was given IV Solu-Medrol breathing treatments she improved her saturations were 98% at the time of evaluation she was not tachypneic however she felt fatigued from the breathing and was still having some expiratory wheezing Past Medical History Cardiac Medical History: Denies: Coronary Artery Disease, Myocardial Infarction, Hypertension, Pulmonary Embolism Pulmonary Medical History: Reports: Asthma, Bronchitis, Chronic Obstructive Pulmonary Disease (COPD) - INHALERS, Pneumonia Denies: Respiratory Failure, Sleep Apnea, Tuberculosis Neurological Medical History: Reports: Other - Reports CVA with left upper arm weakness has resolved with physical therapy Denies: Seizures Malignancy Medical History: Denies: Lung Cancer Musculoskeltal Medical History: Reports: Arthritis - RA Psychiatric Medical History: Reports: Depression Hematology: Denies: Anemia Past Surgical History Past Surgical History: Reports: Section - x 3, Tubal Ligation, Other - Biopsy left neck mass benign, eye surgery, bronchoscopy at [place] Denies: Pacemaker Social History Lives with: Family Smoking Status: Never Smoker Frequency of Alcohol Use: None Hx Recreational Drug Use: No Hx Prescription Drug Abuse: No - Advance Directive Resuscitation Status: Full Code Family History Family History: COPD - Father was skip miner blasting in [place], CVA - Mother, DM - Her other , Other - Sisters with rheumatoid arthritis and cervical cancer each Parental Family History Reviewed: Yes Children Family History Reviewed: Yes Sibling(s) Family History Reviewed.: Yes Medication/Allergy Home Medications: Fluticasone Propionate [Flonase Nasal Patterson 50 Mcg/Patterson 16 gm] 1 spray NASL Q12 #1 spray.pump 12/06/12 Montelukast Sodium [Singulair 10 mg Tablet] 10 mg PO QHS #30 tablet 12/06/12 Cetirizine HCl [Allergy] 10 mg PO DAILYP PRN 08/20/13 Albuterol Sulfate [Ventolin 0.083% Neb 2.5 mg/3 mL Ampul] 2.5 mg NEB RTQ2HP PRN #60 vial.neb 08/29/13 Albuterol Sulfate [Ventolin HFA MDI 18 GM] 2 puff IH Q4HP PRN #1 inh 08/29/13 Lansoprazole [Prevacid] 30 mg PO BIDACBL #60 capsule. 02/17/14 Prednisone 50 mg PO DAILY 10 Days tablet 05/19/14 Alprazolam [Xanax 0.5 mg Tablet] 1 mg PO Q8HP PRN 06/17/15 Oxycodone HCl/Acetaminophen [Percocet 2.5-325 Mg Tablet] 1 each PO Q8 #14 tablet 09/05/15 Hydroxyzine Pamoate [Vistaril 25 mg Capsule] 25 mg PO Q6 #14 capsule 06/12/16 Allergies/Adverse Reactions: cefuroxime axetil [From Ceftin] Allergy (Intermediate, Verified 08/02/17 18:37) Hives voriconazole [From Vfend] Adverse Reaction (Mild, Verified 08/02/17 18:37) Skin Redness Review of Systems All systems: reviewed and no additional remarkable complaints except as stated - Complete review negative with the exception of wheezing coughing shortness of breath productive sputum as per chief complaint denies fever chills Physical Exam Vital Signs: Temp Pulse Resp BP Pulse Ox 98.9 F 119 H 16 134/53 H 94 03/18/18 08:15 03/18/18 08:15 03/18/18 08:15 03/18/18 08:15 03/18/18 08:15 General appearance: PRESENT: no acute distress, well-developed, well-nourished Head exam: PRESENT: atraumatic, normocephalic Eye exam: PRESENT: conjunctiva pink, EOMI, PERRLA. ABSENT: scleral icterus Mouth exam: PRESENT: moist, tongue midline Neck exam: ABSENT: carotid bruit, JVD, lymphadenopathy, thyromegaly Respiratory exam: PRESENT: wheezes - End expiratory wheezing. ABSENT: rales, rhonchi Cardiovascular exam: PRESENT: RRR. ABSENT: diastolic murmur, rubs, systolic murmur Pulses: PRESENT: normal dorsalis pedis pul GI/Abdominal exam: PRESENT: normal bowel sounds, soft. ABSENT: distended, guarding, mass, organolmegaly, rebound, tenderness Extremities exam: PRESENT: full ROM. ABSENT: calf tenderness, clubbing, pedal edema Musculoskeletal exam: ABSENT: tenderness Neurological exam: PRESENT: alert, awake, oriented to person, oriented to place , oriented to time, oriented to situation, CN II-XII grossly intact. ABSENT: motor sensory deficit Skin exam: PRESENT: dry, intact, warm. ABSENT: cyanosis, rash Results Impressions: Chest X-Ray 03/18/18 08:40 IMPRESSION: NO ACUTE RADIOGRAPHIC FINDING IN THE CHEST. Assessment & Plan - Diagnosis (1) Acute exacerbation of mild persistent extrinsic asthma Plan: Admit to medical bed IV Solu-Medrol every 4 hours nebulizing treatments anticipate discharge within 24-48 hours patient is not hypoxemic and has not suffered respiratory failure (2) Acute bronchitis Plan: P.o. azithromycin 500 mg daily - Time Time Spent: 50 to 70 Minutes Anticipated discharge: Home Within: within 48 hours - Inpatient Certification Based on my medical assessment, after consideration of the patient's comorbidities, presenting symptoms, or acuity I expect that the services needed warrant INPATIENT care.: Yes I certify that my determination is in accordance with my understanding of Medicare's requirements for reasonable and necessary INPATIENT services [42 CFR 412.3e].: Yes Medical Necessity: Need Close Monitoring Due to Risk of Patient Decompensation
[2018-03-18] MEDS: METHYLPREDNISOLONE INJ 40 MG/1 ML SDV IV SCH ×2 (14:12→22:44)
[2018-03-18] MEDS: AZITHROMYCIN 250 MG TABLET PO SCH (14:12)
[2018-03-18] MEDS: IPRATROPIUM/ALBUTEROL 0.5-2.5 MG/3 ML AMPUL NEB SCH ×2 (16:36→19:37)
--- NOTE | 2018-03-18 21:48 | EKG REPORT ---
SEVERITY:- ABNORMAL ECG - SINUS TACHYCARDIA NONSPECIFIC T ABNORMALITIES, DIFFUSE LEADS [facility] : Confirmed by: Shonna Vang 18-Mar-2018 21:48:01
[2018-03-18] MEDS: FAMOTIDINE 20 MG TABLET PO SCH (22:44)
[2018-03-19 06:02] LABS: ANION GAP 12 (5-19); BLOOD UREA NITROGEN 7 mg/dL (7-20); CALCIUM 8.9 mg/dL (8.4-10.2); CARBON DIOXIDE 24 mmol/L (22-30); CHLORIDE 106 mmol/L (98-107); GLUCOSE 169 mg/dL (75-110); PHOSPHORUS 2.1 mg/dL (2.5-4.5); POTASSIUM 4.6 mmol/L (3.6-5.0); SODIUM 142.3 mmol/L (137-145)
[2018-03-19] MEDS: METHYLPREDNISOLONE INJ 40 MG/1 ML SDV IV SCH ×3 (06:05→21:08)
[2018-03-19] MEDS: IPRATROPIUM/ALBUTEROL 0.5-2.5 MG/3 ML AMPUL NEB SCH ×4 (08:48→20:03)
[2018-03-19 09:05] LABS: FREE T4 (FREE THYROXINE) 1.28 ng/dL (0.78-2.19)
[2018-03-19] MEDS: AZITHROMYCIN 250 MG TABLET PO SCH (09:45)
[2018-03-19] MEDS: FAMOTIDINE 20 MG TABLET PO SCH ×2 (09:48→21:09)
--- NOTE | 2018-03-19 10:06 | PDOC PROGRESS REPORT ---
Subjective Progress Note for:: 03/19/18 Subjective:: Patient with exacerbation of asthma. Breathing easier mobilizing sputum remains white. Still with expiratory wheezing now 98% on room air. Reason For Visit: EXACERBATION OF ASTHMA Physical Exam Vital Signs: Temp Pulse Resp BP Pulse Ox 98.3 F 89 12 105/54 L 98 03/19/18 07:16 03/19/18 08:54 03/19/18 08:54 03/19/18 07:16 03/19/18 08:54 Intake & Output 03/18/18 03/19/18 03/20/18 06:59 06:59 06:59 Intake Total 1200 Balance 1200 Weight 90.3 kg General appearance: PRESENT: no acute distress, well-developed, well-nourished Neck exam: ABSENT: carotid bruit, JVD, lymphadenopathy, thyromegaly Respiratory exam: PRESENT: clear to auscultation masood, wheezes. ABSENT: rales, rhonchi Cardiovascular exam: PRESENT: RRR. ABSENT: diastolic murmur, rubs, systolic murmur GI/Abdominal exam: PRESENT: normal bowel sounds, soft. ABSENT: distended, guarding, mass, organolmegaly, rebound, tenderness Extremities exam: PRESENT: full ROM. ABSENT: calf tenderness, clubbing, pedal edema Results Laboratory Results: 03/19/18 05:27 03/19/18 03/19/18 03/19/18 05:27 05:27 05:27 Sodium 142.3 Potassium 4.6 Chloride 106 Carbon Dioxide 24 Anion Gap 12 BUN 7 Creatinine 0.65 Est GFR ( Amer) > 60 Est GFR (Non-Af Amer) > 60 Glucose 169 H Calcium 8.9 Phosphorus 2.1 L Magnesium 2.3 TSH 0.21 L Free T4 1.28 Free T3 pg/mL 3.00 Impressions: Chest X-Ray 03/18/18 08:40 IMPRESSION: NO ACUTE RADIOGRAPHIC FINDING IN THE CHEST. Assessment & Plan - Diagnosis (1) Acute exacerbation of mild persistent extrinsic asthma Is this a current diagnosis for this admission?: Yes Plan: Continue IV Solu-Medrol nebulizing treatments. Resume patient's singular. Anticipate discharge in 24 hours (2) Acute bronchitis Is this a current diagnosis for this admission?: Yes Plan: Continue azithromycin p.o. (3) Hypophosphatemia Is this a current diagnosis for this admission?: Yes Plan: P.o. supplementation x4 doses. - Time Time Spent with patient: 15-24 minutes
[2018-03-19] MEDS: MONTELUKAST SODIUM 10 MG TABLET PO SCH (11:36)
[2018-03-19] MEDS: PHOSPHORUS #1 250 MG TABLET PO SCH ×3 (11:36→21:09)
[2018-03-19] MEDS ORDERED: ALPRAZOLAM 0.5 MG TABLET PO PRN (18:45)
[2018-03-19] MEDS: DULOXETINE HCL 30 MG CAPSULE.DR PO SCH (21:08)
[2018-03-19] MEDS: GUAIFENESIN 600 MG TABLET.SA PO SCH (21:09)
[2018-03-20] MEDS: METHYLPREDNISOLONE INJ 40 MG/1 ML SDV IV SCH (05:31)
[2018-03-20] MEDS: PHOSPHORUS #1 250 MG TABLET PO SCH (07:53)
[2018-03-20] MEDS: IPRATROPIUM/ALBUTEROL 0.5-2.5 MG/3 ML AMPUL NEB SCH (08:06)
[2018-03-20] MEDS ORDERED: CETIRIZINE 10 MG TABLET PO SCH (10:00)
[2018-03-20] MEDS ORDERED: (PENDING PHARMACY ID) (Brexpiprazole [Rexulti] 0.5 MG) PO SCH (10:00)
--- NOTE | 2018-03-20 10:04 | PDOC DISCHARGE SUMMARY ---
General - Admit/Disc Date/PCP Admission Date/Primary Care Provider: 03/19/18 14:15 ALLEGRA PICKETT, Discharge Date: 03/20/18 - Discharge Diagnosis (1) Acute exacerbation of mild persistent extrinsic asthma Is this a current diagnosis for this admission?: Yes (2) Acute bronchitis Is this a current diagnosis for this admission?: Yes (3) Hypophosphatemia Is this a current diagnosis for this admission?: Yes - Additional Information Resuscitation Status: Full Code Discharge Activity: Activity As Tolerated Prescriptions: Albuterol Sulfate [Ventolin HFA MDI 18 GM] 2 puff IH Q4HP PRN #1 hfa.aer.ad PRN Reason: For Wheezing Azithromycin [Zithromax 250 mg Tablet] 500 mg PO DAILY #3 tablet Budesonide/Formoterol Fumarate [Symbicort 160-4.5 Mcg Inhaler] 2 puff IH BID #1 hfa.aer.ad Prednisone 20 mg PO BID #10 tablet Home Medications: Cetirizine HCl [Allergy] 10 mg PO DAILY 08/20/13 Alprazolam [Xanax] 1 mg PO TIDP PRN 03/18/18 Brexpiprazole [Rexulti] 0.5 mg PO DAILY 03/18/18 Duloxetine HCl [Cymbalta] 60 mg PO BID 03/18/18 Fluticasone Propionate [Flonase Nasal [place] 50 Mcg/[place] 16 gm] 2 spray NASL DAILY 03/18/18 Hydroxyzine Pamoate [Vistaril 25 mg Capsule] 25 mg PO TIDP PRN 03/18/18 Montelukast Sodium [Singulair 10 mg Tablet] 10 mg PO DAILY 03/18/18 Mv-Min/Iron/Folic/Calcium/Vitk [One-A-Day Women's Tablet] 1 each PO DAILY Pantoprazole Sodium 40 mg PO DAILYP PRN 03/18/18 Tiotropium [place] [Spiriva Respimat] 2 puff IH QAM 03/18/18 Zolpidem Tartrate [Ambien] 10 mg PO HSP PRN 03/18/18 Acetaminophen [Tylenol 325 mg Tablet] 650 mg PO Q4HP PRN tablet 03/20/18 Albuterol Sulfate [Ventolin HFA MDI 18 GM] 2 puff IH Q4HP PRN #1 hfa.aer.ad 10/ 27/18 Azithromycin [Zithromax 250 mg Tablet] 500 mg PO DAILY #3 tablet 03/20/18 Budesonide/Formoterol Fumarate [Symbicort 160-4.5 Mcg Inhaler] 2 puff IH BID #1 hfa.aer.ad 03/20/18 Guaifenesin [Mucinex Sr 600 mg Tablet.sa] 600 mg PO Q12 tablet.sa 03/20/18 Prednisone 20 mg PO BID #10 tablet 03/20/18 History of Present Illness Patient complains of: Shortness of breath History of Present Illness: ARABELLA SINGLETON is a 42 year old female with a history of asthma diagnosed in 2010. She has had frequent hospitalizations but never had mechanical ventilation for asthma. Patient states approximately 2 weeks ago she developed cough with yellow to green sputum she has had wheezing ever since. She has nebulizer in albuterol treatments at home which she increase the frequency and is also on nebulized Pulmicort. She also has inhalers none of this helped ease her wheezing and after 2 weeks she presented to the emergency room. Upon arrival in the emergency room a chest x-ray showed no acute infiltrate her white count was normal. Her saturations were above 90 she had significant inspiratory and expiratory wheezing. She was given IV Solu-Medrol breathing treatments she improved her saturations were 98% at the time of evaluation she was not tachypneic however she felt fatigued from the breathing and was still having some expiratory wheezing Hospital Course Hospital Course: Patient was admitted to a medical bed and placed on every 4 hours nebulizing treatments and IV Solu-Medrol. Her wheezing improved over the next 24-48 hours. At the time of discharge she had some end expiratory wheezing her saturations on room air were in the mid to upper 90s. She had no use of accessory muscles or conversational dyspnea. She was empirically started on azithromycin for acute bronchitis. Chest x-ray showed no pneumonic infiltrates. She was discharged on her metered-dose inhaler of Symbicort Spiriva and given a 5-day course of steroids. She is to follow-up with primary care doctor in 5-7 days. Physical Exam Vital Signs: Temp Pulse Resp BP Pulse Ox 98.4 F 87 16 114/65 98 03/20/18 00:18 03/20/18 08:06 03/20/18 08:06 03/20/18 03:34 03/20/18 08:06 Pulse Oximeter Continuous Start: 03/20/18 08: 09 Freq: RTQ4 Status: Active Document 03/20/18 08:06 TPO (Rec: 03/20/18 08:17 TPO [id number]) Pulse Oximetry Assessment Oxygen Saturation (92-100) 98 Oxygen Delivery Method Room Air Fraction of Inspired Oxygen (FIO2) 21 Equipment Usage Initial Set Up Continuous Pulse Oximeter 24 Hour Charge Charge Now Continuous SpO2 Machine # Peds General appearance: PRESENT: no acute distress, well-developed, well-nourished Head exam: PRESENT: atraumatic, normocephalic Neck exam: ABSENT: carotid bruit, JVD, lymphadenopathy, thyromegaly Respiratory exam: PRESENT: wheezes - End expiratory wheezing. ABSENT: accessory muscle use, rales, rhonchi Cardiovascular exam: PRESENT: RRR. ABSENT: diastolic murmur, rubs, systolic murmur Pulses: PRESENT: normal dorsalis pedis pul GI/Abdominal exam: PRESENT: normal bowel sounds, soft. ABSENT: distended, guarding, mass, organolmegaly, rebound, tenderness Extremities exam: PRESENT: full ROM. ABSENT: calf tenderness, clubbing, pedal edema Results Impressions: Chest X-Ray 03/18/18 08:40 IMPRESSION: NO ACUTE RADIOGRAPHIC FINDING IN THE CHEST. Qualifiers - * PATIENT BEING DISCHARGED WITH ANY OF THE FOLLOWING DIAGNOSIS: No Plan Time Spent: Greater than 30 Minutes
[2018-03-20] MEDS: MONTELUKAST SODIUM 10 MG TABLET PO SCH (10:57)
[2018-03-20] MEDS: AZITHROMYCIN 250 MG TABLET PO SCH (10:57)
[2018-03-20] MEDS: DULOXETINE HCL 30 MG CAPSULE.DR PO SCH (10:57)
[2018-03-20] MEDS: FAMOTIDINE 20 MG TABLET PO SCH (10:57)
[2018-03-20] MEDS: GUAIFENESIN 600 MG TABLET.SA PO SCH (10:57)
[2018-03-20 11:13] VITALS: BP 111/56
== END 2018-03-20 11:39 | disposition home or self-care (01) | DRG 202 ==
LOC: ER 08:10 → INTOOBSV 12:45 → EH 12:45 → 2N 15:16 → OBSVTOIN 03-19 14:15
PROVIDERS: ADMIT Internal Medicine; ATTEND Internal Medicine
DX: J45.31 Mild persistent asthma with (acute) exacerbation (principal); J44.0 Chronic obstructive pulmonary disease with (acute) lower respiratory infection; J20.9 Acute bronchitis, unspecified; M06.9 Rheumatoid arthritis, unspecified; E83.39 Other disorders of phosphorus metabolism; Z86.73 Personal history of transient ischemic attack (TIA), and cerebral infarction without residual deficits; Z82.61 Family history of arthritis; Z82.5 Family history of asthma and other chronic lower respiratory diseases; Z82.3 Family history of stroke; Z88.8 Allergy status to other drugs, medicaments and biological substances; Z98.51 Tubal ligation status
CPT/HCPCS: 36415; 71045; 80048; 80053; 81001; 82550; 82553; 83735; 84100; 84439; 84443; 84481; 84484; 85025; 87040; 87070; 87077; 87205; 93005; 93010; 94640; 94762; 96361; 96365; 96375; 99291; G0378; J2920; J2930; J3475; J7030; J7620

== ENCOUNTER 2018-04-23 13:19 | Inpatient (IN) | payer MEDICARE, MEDICAID ==
[2018-04-23] MEDS ORDERED: IPRATROPIUM/ALBUTEROL 0.5-2.5 MG/3 ML AMPUL NEB ONE ×3 (13:22→14:21)
[2018-04-23] MEDS ORDERED: METHYLPREDNISOLONE INJ 125 MG/2 ML SDV IV ONE (13:26)
[2018-04-23] MEDS ORDERED: ETOMIDATE INJ/PF 20 MG/10 ML SDV IV ONE (13:28)
[2018-04-23] MEDS: ALBUTEROL SULFATE 0.083% NEB 2.5 MG/3 ML AMPUL NEB SCH ×2 (13:28→13:36)
[2018-04-23] MEDS ORDERED: EPINEPHRINE INJ/PF 1 MG/1 ML AMPULE ONE (13:29)
[2018-04-23] MEDS ORDERED: MAGNESIUM SULFATE/D5W 2 GM/200 ML RTUPB IV ONE (13:33)
[2018-04-23] MEDS ORDERED: ONDANSETRON HCL INJ/PF 4 MG/2 ML SDV IV ONE (14:21)
--- NOTE | 2018-04-23 14:26 | RADIOLOGY REPORT (SQ) ---
EXAM DESCRIPTION: CHEST SINGLE VIEW COMPLETED DATE/TIME: 04/23/2018 2:15 pm REASON FOR STUDY: difficulty breathing COMPARISON: 03/18/2018 EXAM PARAMETERS: NUMBER OF VIEWS: One view. TECHNIQUE: Single frontal radiographic view of the chest acquired. RADIATION DOSE: NA LIMITATIONS: None. FINDINGS: LUNGS AND PLEURA: No opacities, masses or pneumothorax. No pleural effusion. MEDIASTINUM AND HILAR STRUCTURES: No masses. Contour normal. HEART AND VASCULAR STRUCTURES: Heart normal in size. Normal vasculature. BONES: No acute findings. HARDWARE: None in the chest. OTHER: No other significant finding. IMPRESSION: NO ACUTE RADIOGRAPHIC FINDING IN THE CHEST. TECHNICAL DOCUMENTATION: JOB ID: [id number] [employer]- All Rights Reserved Reading location - IP/workstation name: [email or web address]
[2018-04-23 16:14] LABS: HEMATOCRIT 39.6 % (36.0-47.0); HEMOGLOBIN 12.8 g/dL (12.0-15.5); MEAN CORPUSCULAR HEMOGLOBIN 24.8 pg (27.0-33.4); MEAN CORPUSCULAR HGB CONC 32.2 g/dL (32.0-36.0); MEAN CORPUSCULAR VOLUME 77 fl (80-97); PLATELET COUNT 495 10^3/uL (150-450); RED BLOOD COUNT 5.15 10^6/uL (3.72-5.28); WHITE BLOOD COUNT 11.3 10^3/uL (4.0-10.5)
[2018-04-23 16:16] LABS: ALANINE AMINOTRANSFERASE 17 U/L (9-52); ALBUMIN 4.6 g/dL (3.5-5.0); ALKALINE PHOSPHATASE 81 U/L (38-126); ANION GAP 15 (5-19); ASPARTATE AMINO TRANSFERASE 33 U/L (14-36); BILIRUBIN,DIRECT 0.3 mg/dL (0.0-0.4); BILIRUBIN,TOTAL 0.5 mg/dL (0.2-1.3); BLOOD UREA NITROGEN 6 mg/dL (7-20); CALCIUM 9.6 mg/dL (8.4-10.2); CARBON DIOXIDE 28 mmol/L (22-30); CHLORIDE 103 mmol/L (98-107); CREATINE KINASE 156 U/L (30-135); GLUCOSE 158 mg/dL (75-110); POTASSIUM 4.4 mmol/L (3.6-5.0); SODIUM 145.7 mmol/L (137-145); TOTAL PROTEIN 8.2 g/dL (6.3-8.2)
[2018-04-23 16:27] LABS: CREATINE KINASE MB 0.73 ng/mL (<4.55)
[2018-04-23 16:28] LABS: TROPONIN I < 0.012 ng/mL
[2018-04-23 16:32] LABS: ABSOLUTE LYMPHOCYTES# (MANUAL) 6.6 10^3/uL (0.5-4.7); ABSOLUTE MONOCYTES # (MANUAL) 0.7 10^3/uL (0.1-1.4); ABSOLUTE NEUTROPHILS# (MANUAL) 3.2 10^3/uL (1.7-8.2); BASOPHILS % (MANUAL) 0 % (0-2); EOSINOPHILS % (MANUAL) 8 % (0-6); LYMPHOCYTES % (MANUAL) 58 % (13-45); MONOCYTES % (MANUAL) 6 % (3-13); SEGMENTED NEUTROPHILS % (MAN) 28 % (42-78); TOTAL CELLS COUNTED 100
[2018-04-23 16:33] LABS: ANISOCYTOSIS 1+; OVALOCYTES SLIGHT; PLATELET COMMENT INCREASED; POIKILOCYTOSIS SLIGHT
--- NOTE | 2018-04-23 17:33 | ER Document Report ---
ED General - General Chief Complaint: Respiratory Distress Stated Complaint: DIFFICULTY BREATHING Time Seen by Provider: 04/23/18 14:13 Mode of Arrival: Ambulatory Information source: Patient Notes: This is a 43-year-old female with a history of COPD, CVA who presents to the emergency room with wheezing, cough and shortness of breath. Patient states that she had 3 nebs at home and continued to have respiratory distress. TRAVEL OUTSIDE OF THE [place] IN LAST 30 DAYS: No - HPI Onset: Last week Onset/Duration: Gradual Quality of pain: No pain Severity: None Pain Level: Denies Associated symptoms: Chest pain, Nonproductive cough, Shortness of breath. denies: Fever Exacerbated by: Denies Relieved by: Denies Similar symptoms previously: Yes Recently seen / treated by doctor: Yes - Related Data Allergies/Adverse Reactions: cefuroxime axetil [From Ceftin] Allergy (Intermediate, Verified 03/18/18 15:11) Hives voriconazole [From Vfend] Adverse Reaction (Mild, Verified 03/18/18 15:11) Skin Redness Past Medical History - General Information source: Patient - Social History Smoking Status: Never Smoker Cigarette use (# per day): No Chew tobacco use (# tins/day): No Frequency of alcohol use: None Drug Abuse: None Lives with: Family Family History: COPD - Father was computer forensic examiner in [place], CVA - Mother, DM - Her other , Other - Sisters with rheumatoid arthritis and cervical cancer each Patient has suicidal ideation: No Patient has homicidal ideation: No - Past Medical History Cardiac Medical History: Denies: Hx Coronary Artery Disease, Hx Heart Attack, Hx Hypertension, Hx Pulmonary Embolism Pulmonary Medical History: Reports: Hx Asthma, Hx Bronchitis, Hx COPD - INHALERS , Hx Pneumonia Denies: Hx Respiratory Failure, Hx Sleep Apnea, Hx Tuberculosis Neurological Medical History: Denies: Hx Cerebrovascular Accident, Hx Seizures Renal/ Medical History: Denies: Hx Kidney Stones, Hx Peritoneal Dialysis Malignancy Medical History: Denies: Hx Lung Cancer Musculoskeletal Medical History: Reports Hx Arthritis - RA Psychiatric Medical History: Reports: Hx Anxiety, Hx Depression Past Surgical History: Reports: Hx Section - x 3, Hx Tubal Ligation, Other - Biopsy left neck mass benign, eye surgery, bronchoscopy at [place]. Denies : Hx Pacemaker - Immunizations Immunizations up to date: Yes Hx Diphtheria, Pertussis, Tetanus Vaccination: Yes Hx Pneumococcal Vaccination: 03/25/13 Review of Systems - Review of Systems Constitutional: denies: Chills, Fever EENT: No symptoms reported Cardiovascular: No symptoms reported Respiratory: See HPI Gastrointestinal: No symptoms reported Genitourinary: No symptoms reported Female Genitourinary: No symptoms reported Musculoskeletal: No symptoms reported Skin: No symptoms reported Hematologic/Lymphatic: No symptoms reported Neurological/Psychological: No symptoms reported Physical Exam - Vital signs Vitals: Resp Pulse Ox 23 H 100 04/23/18 13:20 04/23/18 13:20 Notes: Physical exam: GENERAL: 43-year-old female, alert and oriented x3, short of breath. Accessory muscle use. HEAD: Atraumatic, normocephalic. EYES: Pupils equal round and reactive to light, extraocular movements intact, sclera anicteric, conjunctiva are normal. ENT: TMs normal, nares patent, oropharynx clear without exudates. Moist mucous membranes. NECK: Normal range of motion, supple without obvious mass or JVD. LUNGS: Bilateral wheezing with accessory muscle use. HEART: Regular rate and rhythm without murmurs, rubs or gallops. ABDOMEN: Soft, normoactive bowel sounds. No tenderness to palpation. No guarding, no rebound. No masses appreciated. EXTREMITIES: Normal range of motion, no pitting or edema. No clubbing or cyanosis. NEUROLOGICAL: Cranial nerves II through XII grossly intact. Normal speech, moving all extremities. PSYCH: Normal mood, normal affect. SKIN: Warm, Dry, normal turgor, no rashes or lesions noted. Course - Re-evaluation Re-evalutation: 04/23/18 19:37 Patient was treated with IV Solu-Medrol, duo nebs, IV magnesium, IM Epi. She was followed on BiPAP. - Vital Signs Vital signs: Temp Pulse Resp BP Pulse Ox 24 H 100 04/23/18 15:37 04/23/18 15:37 - Laboratory Result Diagrams: 04/23/18 13:30 04/23/18 13:30 Laboratory results interpreted by me: 04/23/18 04/23/18 13:30 13:30 WBC 11.3 H MCV 77 L MCH 24.8 L RDW 16.0 H Plt Count 495 H Seg Neuts % (Manual) 28 L Lymphocytes % (Manual) 58 H Eosinophils % (Manual) 8 H Abs Lymphs (Manual) 6.6 H Absolute Eos (Manual) 0.9 H Sodium 145.7 H BUN 6 L Glucose 158 H Creatine Kinase 156 H - Diagnostic Test Radiology reviewed: Image reviewed, Reports reviewed Critical Care Note - Critical Care Note Total time excluding time spent on procedures (mins): 90 Discharge - Discharge Clinical Impression: COPD exacerbation Condition: Stable Disposition: ADMITTED INPATIENT Admitting Provider: Vimalist Jasmeet Kenny Unit Admitted: [facility]
[2018-04-23 17:58] LABS: VENOUS BLOOD BASE EXCESS 0.8 mmol/L; VENOUS BLOOD HCO3 28.2 mmol/L (20-32); VENOUS BLOOD PCO2 58.3 mmHg (35-63); VENOUS BLOOD PH 7.3 (7.30-7.42)
[2018-04-23] MEDS ORDERED: LEVALBUTEROL HCL NEB 1.25 MG/3 ML AMPUL NEB PRN (18:02)
[2018-04-23] MEDS ORDERED: ONDANSETRON HCL INJ/PF 4 MG/2 ML SDV IV PRN (18:02)
[2018-04-23] MEDS ORDERED: ACETAMINOPHEN 325 MG TABLET PO PRN (18:02)
[2018-04-23] MEDS ORDERED: (PENDING PHARMACY ID) (Zolpidem Tartrate [Ambien] 10 MG) PO PRN (18:10)
[2018-04-23] MEDS ORDERED: GLUCAGON,HUMAN RECOMB 1 MG INJ IM PRN (18:12)
[2018-04-23] MEDS ORDERED: DEXTROSE 40% GEL 15 GM TUBE PO PRN ×2 (18:12)
[2018-04-23] MEDS ORDERED: DEXTROSE 50%-WATER 25 GM/50 ML DISP.SYRIN IV PRN ×2 (18:12)
--- NOTE | 2018-04-23 18:30 | PDOC H&P ---
History of Present Illness Admission Date/PCP: 04/23/18 17:52 ALLEGRA PICKETT DO Patient complains of: Shortness of breath. History of Present Illness: ARABELLA SINGLETON is a 43 year old female past medical history of COPD, rheumatoid arthritis, EMEA, history of acid reflux disease, obstructive airway disease, anxiety, depression, to the emergency room with complaints of worsening shortness of breath and wheezing for the last 3 days in association with cough and productive green sputum. Patient said she was in the hospital 1 month ago with a similar problem she never recovered to the baseline and as above for the last 3 days symptoms are getting worse he decided to come to the emergency room for further evaluation. Is also given the history of chest pain and coughing body aches and coughing. Also given the history of running and also clear discharge. Also given the history of nausea and vomiting's especially yesterday. Denies any diarrhea. Denies any rashes. Has any headaches dizzy spells or falls. She was evaluated in the emergency room was started on BiPAP and nebulizer treatments were given. Past Medical History Cardiac Medical History: Denies: Coronary Artery Disease, Myocardial Infarction, Hypertension, Pulmonary Embolism Pulmonary Medical History: Reports: Asthma, Bronchitis, Chronic Obstructive Pulmonary Disease (COPD) - INHALERS, Pneumonia Denies: Respiratory Failure, Sleep Apnea, Tuberculosis Neurological Medical History: Denies: Seizures Malignancy Medical History: Denies: Lung Cancer GI Medical History: Reports: Gastroesophageal Reflux Disease Musculoskeltal Medical History: Reports: Arthritis - RA Psychiatric Medical History: Reports: Depression, General Anxiety Disorder Hematology: Reports: Anemia Past Surgical History Past Surgical History: Reports: Appendectomy, Section - x 3, Tubal Ligation, Other - Biopsy left neck mass benign, eye surgery, bronchoscopy at [facility] Denies: Pacemaker Social History Smoking Status: Never Smoker Frequency of Alcohol Use: Occasional Hx Recreational Drug Use: No Hx Prescription Drug Abuse: No Family History Family History: COPD - Father was motor vehicle examiner in [place], CVA - Mother, DM - Her other , Other - Sisters with rheumatoid arthritis and cervical cancer each Parental Family History Reviewed: Yes - Family history of diabetes hypertension. mother has history of stroke. Children Family History Reviewed: Yes Sibling(s) Family History Reviewed.: Yes Medication/Allergy Allergies/Adverse Reactions: cefuroxime axetil [From Ceftin] Allergy (Intermediate, Verified 03/18/18 15:11) Hives voriconazole [From Vfend] Adverse Reaction (Mild, Verified 03/18/18 15:11) Skin Redness Review of Systems Constitutional: PRESENT: chills, fever(s) Eyes: ABSENT: visual disturbances Nose, Mouth, and Throat: PRESENT: other - Planing of runny nose with clear drainage. Cardiovascular: PRESENT: other - Chest pain and severe coughing. Respiratory: PRESENT: dyspnea, sputum, other Gastrointestinal: PRESENT: nausea, vomiting Neurological: ABSENT: abnormal gait, abnormal speech, confusion, dizziness, focal weakness, syncope Psychiatric: ABSENT: anxiety, depression, homidical ideation, suicidal ideation Physical Exam Vital Signs: Temp Pulse Resp BP Pulse Ox 24 H 100 04/23/18 15:37 04/23/18 15:37 General appearance: PRESENT: obese, severe distress, other - Patient is on BiPAP. Head exam: PRESENT: atraumatic Eye exam: PRESENT: PERRLA Throat exam: ABSENT: post pharyngeal erythema, tonsillar erythema Neck exam: ABSENT: carotid bruit, JVD, lymphadenopathy, thyromegaly Respiratory exam: PRESENT: accessory muscle use, decreased breath sounds, rhonchi, tachypnea, wheezes, other - Examination of the chest bilateral entry was severely decreased bilateral extensive wheezing is present patient on BiPAP. Cardiovascular exam: PRESENT: tachycardia Pulses: PRESENT: normal dorsalis pedis pul GI/Abdominal exam: PRESENT: normal bowel sounds, soft. ABSENT: distended, guarding, mass, organolmegaly, rebound, tenderness Neurological exam: PRESENT: alert, awake, oriented to person, oriented to place , oriented to time, oriented to situation, CN II-XII grossly intact. ABSENT: motor sensory deficit Psychiatric exam: ABSENT: homicidal ideation, suicidal ideation Results Impressions: Chest X-Ray 04/23/18 13:26 IMPRESSION: NO ACUTE RADIOGRAPHIC FINDING IN THE CHEST. Assessment & Plan - Diagnosis (1) Acute exacerbation of COPD with asthma Is this a current diagnosis for this admission?: Yes Plan: 04/23/2018 patient with history of COPD, obstructive airway disease came to the [facility] emergency room for COPD exacerbation. In the emergency room she was in severe respiratory distress with hypoxia she was placed on BiPAP, and I started her on IV Solu-Medrol, DuoNeb nebulizations every 4 as needed, started on IV antibiotic therapy, and requested for incentive spirometry. Cultures and sputum cultures were requested. Chest x-ray interpretation is negative for pneumonia. Going to do the ABGs on daily basis. VBG done in the ER pH is 7.3, PCO2 is 58 bicarb is 28. To repeat the ABG in the morning. (2) Rheumatoid arthritis Qualifiers: Rheumatoid arthritis location: unspecified site Is this a current diagnosis for this admission?: Yes Plan: 04/23/2018 patient given the history of rheumatoid arthritis. She has chronic pain secondary to rheumatoid arthritis. She is in p.o. prednisone at home. It was on hold now because patient is on IV Solu-Medrol. (3) Anemia Qualifiers: Anemia type: unspecified type Qualified Code(s): D64.9 - Anemia, unspecified Is this a current diagnosis for this admission?: Yes Plan: 04/23/2018 patient is giving history of anemia in December hemoglobin is 8.2. Hemoglobin is 12.8. (5) GERD (gastroesophageal reflux disease) Qualifiers: Esophagitis presence: esophagitis presence not specified Qualified Code(s) : K21.9 - Gastro-esophageal reflux disease without esophagitis Is this a current diagnosis for this admission?: Yes Plan: 04/23/2018 patient has history of gastric further reflux disease. I started her on famotidine 20 mg IV twice daily. (6) Depression Qualifiers: Depression Type: unspecified Qualified Code(s): F32.9 - Major depressive disorder, single episode, unspecified Is this a current diagnosis for this admission?: Yes Plan: 04/23/2018 patient given the chronic history of depression and anxiety. During the examination in the emergency room she denies any symptoms of anxiety depression. She is on duloxetine 60 mg p.o. twice daily and alprazolam 1 mg 3 times a day at home. I resume her home medications. - Time Time Spent: 30 to 50 Minutes Medications reviewed and adjusted accordingly: Yes Anticipated discharge: Home
[2018-04-23 19:40] LABS: CREATINE KINASE MB 0.65 ng/mL (<4.55)
[2018-04-23 19:41] LABS: TROPONIN I < 0.012 ng/mL
--- NOTE | 2018-04-23 19:48 | EKG REPORT ---
SEVERITY:- ABNORMAL ECG - SINUS TACHYCARDIA NONSPECIFIC T ABNORMALITIES, DIFFUSE LEADS : Confirmed by: Kenneth Hyde MD 23-Apr-2018 19:47:57
[2018-04-23] MEDS: NORMAL SALINE 1000 ML 1,000 ML IV PRN (20:11)
[2018-04-23] MEDS ORDERED: (PENDING PHARMACY ID) (Brexpiprazole [Rexulti] 0.5 MG) PO SCH (21:00)
[2018-04-23] MEDS ORDERED: (PENDING PHARMACY ID) (Tiotropium Bromide [Spiriva Respimat] 2 PUFF) IH SCH (21:00)
[2018-04-23] MEDS: METHYLPREDNISOLONE INJ 125 MG/2 ML SDV IV SCH (22:03)
[2018-04-23] MEDS: LEVOFLOXACIN 750 MG/D5W RTU 750 MG/150 ML RTUPB IV SCH (22:04)
[2018-04-23] MEDS: GUAIFENESIN 600 MG TABLET.SA PO SCH (22:04)
[2018-04-23] MEDS: ENOXAPARIN SODIUM INJ 40 MG/0.4 ML DISP.SYRIN SUBCUT SCH (22:04)
[2018-04-23] MEDS: FAMOTIDINE INJ/PF 20 MG/2 ML SDV IV SCH (22:04)
[2018-04-24] MEDS: INSULIN REG, HUMAN 100 UNIT/ML 3 ML VIAL (PYX) SUBCUT PRN ×2 (00:52→12:46)
[2018-04-24 01:25] LABS: CREATINE KINASE MB 0.62 ng/mL (<4.55)
[2018-04-24 01:29] LABS: TROPONIN I < 0.012 ng/mL
[2018-04-24] MEDS: METHYLPREDNISOLONE INJ 125 MG/2 ML SDV IV SCH ×4 (04:07→21:15)
[2018-04-24 07:13] LABS: ARTERIAL BLOOD BASE EXCESS -0.2 mmol/L; ARTERIAL BLOOD H2CO3 1.37 mmol/L (1.05-1.35); ARTERIAL BLOOD HCO3 25.4 mmol/L (20-24); ARTERIAL BLOOD O2 SATURATION 98.7 % (94-98); ARTERIAL BLOOD PCO2 45.5 mmHg (35-45); ARTERIAL BLOOD PH 7.36 (7.35-7.45); ARTERIAL BLOOD TOTAL CO2 26.8 mmol/L (21-25)
[2018-04-24 07:16] LABS: ARTERIAL BLOOD FIO2 2 L
[2018-04-24 07:17] LABS: ABSOLUTE MONOCYTES (AUTO) 0.1 10^3/uL (0.1-1.4); ABSOLUTE NEUT (AUTO) 5.3 10^3/uL (1.7-8.2); BASOPHILS % (AUTO) 0.4 % (0-2); HEMATOCRIT 32.7 % (36.0-47.0); HEMOGLOBIN 10.9 g/dL (12.0-15.5); LYMPHOCYTES % (AUTO) 15.4 % (13-45); MEAN CORPUSCULAR HEMOGLOBIN 25.4 pg (27.0-33.4); MEAN CORPUSCULAR HGB CONC 33.4 g/dL (32.0-36.0); MEAN CORPUSCULAR VOLUME 76 fl (80-97); MONOCYTES % (AUTO) 1.6 % (3-13); PLATELET COUNT 393 10^3/uL (150-450); RED BLOOD COUNT 4.31 10^6/uL (3.72-5.28); RED CELL DISTRIBUTION WIDTH 16.2 % (11.5-14.0); SEGMENTED NEUTROPHILS % (AUTO) 82.6 % (42-78); TOTAL CELLS COUNTED % (AUTO) 100 %; WHITE BLOOD COUNT 6.4 10^3/uL (4.0-10.5)
[2018-04-24 07:38] LABS: ALANINE AMINOTRANSFERASE 16 U/L (9-52); ALKALINE PHOSPHATASE 67 U/L (38-126); ANION GAP 13 (5-19); ASPARTATE AMINO TRANSFERASE 23 U/L (14-36); BILIRUBIN,DIRECT 0.3 mg/dL (0.0-0.4); BILIRUBIN,TOTAL 0.4 mg/dL (0.2-1.3); BLOOD UREA NITROGEN 7 mg/dL (7-20); CARBON DIOXIDE 27 mmol/L (22-30); CHLORIDE 104 mmol/L (98-107); CREATINE KINASE 144 U/L (30-135); GLUCOSE 150 mg/dL (75-110); POTASSIUM 4.1 mmol/L (3.6-5.0); SODIUM 144.1 mmol/L (137-145)
[2018-04-24 07:48] LABS: CREATINE KINASE MB 0.83 ng/mL (<4.55)
[2018-04-24 07:54] LABS: TROPONIN I < 0.012 ng/mL
[2018-04-24] MEDS ORDERED: (PENDING PHARMACY ID) (Tiotropium Bromide [Spiriva Respimat] 2 PUFF) IH SCH (08:00)
--- NOTE | 2018-04-24 08:14 | EKG REPORT ---
SEVERITY:- ABNORMAL ECG - SINUS TACHYCARDIA NONSPECIFIC T ABNORMALITIES, DIFFUSE LEADS : Confirmed by: Kenneth Hyde MD 24-Apr-2018 08:13:27
[2018-04-24] MEDS: ALPRAZOLAM 0.5 MG TABLET PO PRN ×2 (08:46→17:44)
[2018-04-24] MEDS: ENOXAPARIN SODIUM INJ 40 MG/0.4 ML DISP.SYRIN SUBCUT SCH (10:00)
[2018-04-24] MEDS ORDERED: (PENDING PHARMACY ID) (Mv-Min/Iron/Folic/Calcium/Vitk [One-A-Day Women's Tablet] 1 EACH) PO SCH (10:00)
[2018-04-24] MEDS ORDERED: (PENDING PHARMACY ID) (Brexpiprazole [Rexulti] 0.5 MG) PO SCH (10:00)
[2018-04-24] MEDS: CETIRIZINE 10 MG TABLET PO SCH (10:06)
[2018-04-24] MEDS: FAMOTIDINE INJ/PF 20 MG/2 ML SDV IV SCH ×2 (10:06→21:15)
[2018-04-24] MEDS: DULOXETINE HCL 30 MG CAPSULE.DR PO SCH ×2 (10:07→17:44)
[2018-04-24] MEDS: FLUTICASONE NASAL SPRAY 50 MCG/SPRY 120 SPRAY/16 GM NASL SCH (10:07)
[2018-04-24] MEDS: GUAIFENESIN 600 MG TABLET.SA PO SCH ×2 (10:07→21:15)
[2018-04-24] MEDS: PRENATAL VITAMIN W DHA CAPSULE PO SCH (10:07)
[2018-04-24] MEDS: BUDESONIDE/FORMOTEROL 160-4.5 MCG 60 PUFF/6 GM MDI IH SCH ×2 (10:08→17:43)
--- NOTE | 2018-04-24 11:55 | PDOC PROGRESS REPORT ---
Subjective Progress Note for:: 04/24/18 Subjective:: 04/23/2018 43 year old female past medical history of COPD, rheumatoid arthritis, EMEA, history of acid reflux disease, obstructive airway disease, anxiety, depression , to the emergency room with complaints of worsening shortness of breath and wheezing for the last 3 days in association with cough and productive green sputum. Patient said she was in the hospital 1 month ago with a similar problem she never recovered to the baseline and as above for the last 3 days symptoms are getting worse he decided to come to the emergency room for further evaluation. Is also given the history of chest pain and coughing body aches and coughing. Also given the history of running and also clear discharge. Also given the history of nausea and vomiting's especially yesterday. Denies any diarrhea. Denies any rashes. Has any headaches dizzy spells or falls. She was evaluated in the emergency room was started on BiPAP and nebulizer treatments were given. 04/24/2018 no acute events in the last 24 hours. Patient is afebrile. Patient is to continue to be on BiPAP. Discussed the care with the partner. He is happy with the improvement. Patient is sleeping at now. Reason For Visit: COPD EXACERBATION Physical Exam Vital Signs: Temp Pulse Resp BP Pulse Ox 98.2 F 109 H 16 115/53 L 95 04/24/18 08:25 04/24/18 08:25 04/24/18 08:25 04/24/18 08:25 04/24/18 08:25 Intake & Output 04/23/18 04/24/18 04/25/18 06:59 06:59 06:59 Intake Total 630 Output Total 300 Balance 330 Weight 91 kg General appearance: PRESENT: no acute distress Head exam: PRESENT: atraumatic Eye exam: PRESENT: PERRLA Neck exam: ABSENT: carotid bruit, JVD, lymphadenopathy, thyromegaly Respiratory exam: PRESENT: decreased breath sounds, rales, unlabored, wheezes Cardiovascular exam: PRESENT: tachycardia GI/Abdominal exam: PRESENT: normal bowel sounds, soft. ABSENT: distended, guarding, mass, organolmegaly, rebound, tenderness Neurological exam: PRESENT: alert, awake, oriented to person, oriented to place , oriented to time, oriented to situation, CN II-XII grossly intact. ABSENT: motor sensory deficit Psychiatric exam: PRESENT: appropriate affect, normal mood. ABSENT: homicidal ideation, suicidal ideation Results Laboratory Results: 04/24/18 06:47 04/24/18 06:47 04/24/18 04/24/18 04/24/18 06:47 06:47 06:47 WBC 6.4 RBC 4.31 Hgb 10.9 L Hct 32.7 L MCV 76 L MCH 25.4 L MCHC 33.4 RDW 16.2 H Plt Count 393 Seg Neutrophils % 82.6 H Lymphocytes % 15.4 Monocytes % 1.6 L Eosinophils % 0.0 Basophils % 0.4 Absolute Neutrophils 5.3 Absolute Lymphocytes 1.0 Absolute Monocytes 0.1 Absolute Eosinophils 0.0 Absolute Basophils 0.0 Carbonic Acid HCO3/H2CO3 Ratio ABG pH ABG pCO2 ABG pO2 ABG HCO3 ABG O2 Saturation ABG Base Excess FiO2 Sodium 144.1 Potassium 4.1 Chloride 104 Carbon Dioxide 27 Anion Gap 13 BUN 7 Creatinine 0.76 Est GFR ( Amer) > 60 Est GFR (Non-Af Amer) > 60 Glucose 150 H Calcium 9.0 Magnesium 2.2 Total Bilirubin 0.4 AST 23 ALT 16 Alkaline Phosphatase 67 Total Protein 7.0 Albumin 4.0 TSH 0.14 L 04/24/18 06:55 WBC RBC Hgb Hct MCV MCH MCHC RDW Plt Count Seg Neutrophils % Lymphocytes % Monocytes % Eosinophils % Basophils % Absolute Neutrophils Absolute Lymphocytes Absolute Monocytes Absolute Eosinophils Absolute Basophils Carbonic Acid 1.37 H HCO3/H2CO3 Ratio 18:1 ABG pH 7.36 ABG pCO2 45.5 H ABG pO2 140.0 H ABG HCO3 25.4 H ABG O2 Saturation 98.7 H ABG Base Excess -0.2 FiO2 2 L Sodium Potassium Chloride Carbon Dioxide Anion Gap BUN Creatinine Est GFR ( Amer) Est GFR (Non-Af Amer) Glucose Calcium Magnesium Total Bilirubin AST ALT Alkaline Phosphatase Total Protein Albumin TSH 04/23/18 04/23/18 04/24/18 18:49 18:49 00:49 Creatine Kinase 151 H 155 H CK-MB (CK-2) 0.65 Troponin I < 0.012 04/24/18 04/24/18 04/24/18 00:49 06:47 06:47 Creatine Kinase 144 H CK-MB (CK-2) 0.62 0.83 Troponin I < 0.012 < 0.012 Impressions: Chest X-Ray 04/23/18 13:26 IMPRESSION: NO ACUTE RADIOGRAPHIC FINDING IN THE CHEST. Assessment & Plan - Diagnosis (1) Acute exacerbation of COPD with asthma Is this a current diagnosis for this admission?: Yes Plan: 04/23/2018 patient with history of COPD, obstructive airway disease came to the [facility] emergency room for COPD exacerbation. In the emergency room she was in severe respiratory distress with hypoxia she was placed on BiPAP, and I started her on IV Solu-Medrol, DuoNeb nebulizations every 4 as needed, started on IV antibiotic therapy, and requested for incentive spirometry. Cultures and sputum cultures were requested. Chest x-ray interpretation is negative for pneumonia. Going to do the ABGs on daily basis. VBG done in the ER pH is 7.3, PCO2 is 58 bicarb is 28. To repeat the ABG in the morning. 04/24/2018 admitted with acute exacerbation of COPD. She was placed on BiPAP IV Solu-Medrol DuoNeb nebulizations IV antibiotics. On incentive spirometry. ABG today pH is 7.36/PCO2 45 PO2 140 bicarb is 25. The cultures are pending. X- rays negative for pneumonia. Patient is afebrile. (2) Rheumatoid arthritis Qualifiers: Rheumatoid arthritis location: unspecified site Is this a current diagnosis for this admission?: Yes Plan: 04/23/2018 patient given the history of rheumatoid arthritis. She has chronic pain secondary to rheumatoid arthritis. She is in p.o. prednisone at home. It was on hold now because patient is on IV Solu-Medrol. 04/24/2018 patient has history of chronic pain secondary to rheumatoid arthritis. She is on IV Solu-Medrol at this point. (3) Anemia Qualifiers: Anemia type: unspecified type Qualified Code(s): D64.9 - Anemia, unspecified Is this a current diagnosis for this admission?: Yes Plan: 04/23/2018 patient is giving history of anemia in December hemoglobin is 8.2. Hemoglobin is 12.8. 04/24/2018 patient has history of anemia. Present hemoglobin is 10.9. (5) GERD (gastroesophageal reflux disease) Qualifiers: Esophagitis presence: esophagitis presence not specified Qualified Code(s) : K21.9 - Gastro-esophageal reflux disease without esophagitis Is this a current diagnosis for this admission?: Yes Plan: 04/23/2018 patient has history of gastric further reflux disease. I started her on famotidine 20 mg IV twice daily. 04/24/2018 no complaints today will continue famotidine 20 mg IV twice daily. (6) Depression Qualifiers: Depression Type: unspecified Qualified Code(s): F32.9 - Major depressive disorder, single episode, unspecified Is this a current diagnosis for this admission?: Yes Plan: 04/23/2018 patient given the chronic history of depression and anxiety. During the examination in the emergency room she denies any symptoms of anxiety depression. She is on duloxetine 60 mg p.o. twice daily and alprazolam 1 mg 3 times a day at home. I resume her home medications. 04/24/2018 no complaints of depression anxiety today. Is on duloxetine 60 mg p.o. twice daily alprazolam 1 mg 3 times day. - Time Time Spent with patient: Less than 15 minutes Medications reviewed and adjusted accordingly: Yes Anticipated discharge: Home
[2018-04-24] MEDS: IPRATROPIUM/ALBUTEROL 0.5-2.5 MG/3 ML AMPUL NEB PRN ×2 (14:28→19:51)
[2018-04-24] MEDS: NORMAL SALINE 1000 ML 1,000 ML IV PRN (16:25)
[2018-04-24] MEDS: MONTELUKAST SODIUM 10 MG TABLET PO SCH (21:15)
[2018-04-24] MEDS: LEVOFLOXACIN 750 MG/D5W RTU 750 MG/150 ML RTUPB IV SCH (21:15)
[2018-04-24] MEDS: ZOLPIDEM TARTRATE 5 MG TABLET PO PRN (23:50)
[2018-04-25] MEDS: METHYLPREDNISOLONE INJ 125 MG/2 ML SDV IV SCH ×3 (05:10→21:47)
[2018-04-25 07:15] LABS: ABSOLUTE LYMPHOCYTES (AUTO) 0.9 10^3/uL (0.5-4.7); ABSOLUTE MONOCYTES (AUTO) 0.3 10^3/uL (0.1-1.4); ABSOLUTE NEUT (AUTO) 11.7 10^3/uL (1.7-8.2); HEMATOCRIT 28.8 % (36.0-47.0); HEMOGLOBIN 9.5 g/dL (12.0-15.5); LYMPHOCYTES % (AUTO) 6.7 % (13-45); MEAN CORPUSCULAR HEMOGLOBIN 24.7 pg (27.0-33.4); MEAN CORPUSCULAR HGB CONC 33.1 g/dL (32.0-36.0); MEAN CORPUSCULAR VOLUME 75 fl (80-97); MONOCYTES % (AUTO) 2.3 % (3-13); PLATELET COUNT 342 10^3/uL (150-450); RED BLOOD COUNT 3.85 10^6/uL (3.72-5.28); RED CELL DISTRIBUTION WIDTH 16.2 % (11.5-14.0); TOTAL CELLS COUNTED % (AUTO) 100 %
[2018-04-25 07:20] LABS: WHITE BLOOD COUNT 12.9 10^3/uL (4.0-10.5)
[2018-04-25] MEDS: NORMAL SALINE 1000 ML 1,000 ML IV PRN (08:49)
[2018-04-25] MEDS: IPRATROPIUM/ALBUTEROL 0.5-2.5 MG/3 ML AMPUL NEB PRN ×3 (09:07→20:19)
[2018-04-25] MEDS: ENOXAPARIN SODIUM INJ 40 MG/0.4 ML DISP.SYRIN SUBCUT SCH (10:22)
[2018-04-25] MEDS: FLUTICASONE NASAL SPRAY 50 MCG/SPRY 120 SPRAY/16 GM NASL SCH (10:27)
[2018-04-25] MEDS: PRENATAL VITAMIN W DHA CAPSULE PO SCH (10:28)
[2018-04-25] MEDS: BUDESONIDE/FORMOTEROL 160-4.5 MCG 60 PUFF/6 GM MDI IH SCH ×2 (10:28→17:32)
[2018-04-25] MEDS: CETIRIZINE 10 MG TABLET PO SCH (10:28)
[2018-04-25] MEDS: DULOXETINE HCL 30 MG CAPSULE.DR PO SCH ×2 (10:28→17:32)
[2018-04-25] MEDS: ALPRAZOLAM 0.5 MG TABLET PO PRN (10:28)
[2018-04-25] MEDS: GUAIFENESIN 600 MG TABLET.SA PO SCH ×2 (10:28→21:46)
[2018-04-25] MEDS: FAMOTIDINE INJ/PF 20 MG/2 ML SDV IV SCH (10:29)
--- NOTE | 2018-04-25 12:11 | PDOC PROGRESS REPORT ---
Subjective Progress Note for:: 04/25/18 Subjective:: 04/23/2018 43 year old female past medical history of COPD, rheumatoid arthritis, EMEA, history of acid reflux disease, obstructive airway disease, anxiety, depression , to the emergency room with complaints of worsening shortness of breath and wheezing for the last 3 days in association with cough and productive green sputum. Patient said she was in the hospital 1 month ago with a similar problem she never recovered to the baseline and as above for the last 3 days symptoms are getting worse he decided to come to the emergency room for further evaluation. Is also given the history of chest pain and coughing body aches and coughing. Also given the history of running and also clear discharge. Also given the history of nausea and vomiting's especially yesterday. Denies any diarrhea. Denies any rashes. Has any headaches dizzy spells or falls. She was evaluated in the emergency room was started on BiPAP and nebulizer treatments were given. 04/24/2018 no acute events in the last 24 hours. Patient is afebrile. Patient is to continue to be on BiPAP. Discussed the care with the partner. He is happy with the improvement. Patient is sleeping at now. 04/25/2018 acute events in the last 24 hours. Patient is afebrile. Patient is using BiPAP at night. No complaints from the patient today. Reason For Visit: COPD EXACERBATION Physical Exam Vital Signs: Temp Pulse Resp BP Pulse Ox 97.8 F 83 13 105/45 L 100 04/25/18 08:40 04/25/18 09:07 04/25/18 09:07 04/25/18 08:40 04/25/18 09:07 Intake & Output 04/24/18 04/25/18 04/26/18 06:59 06:59 06:59 Intake Total 630 3247 Output Total 300 Balance 330 3247 Weight 91 kg 92.3 kg General appearance: PRESENT: no acute distress Head exam: PRESENT: atraumatic Eye exam: PRESENT: PERRLA Mouth exam: PRESENT: moist Neck exam: ABSENT: carotid bruit, JVD, lymphadenopathy, thyromegaly Respiratory exam: PRESENT: clear to auscultation masood. ABSENT: rales, rhonchi, wheezes GI/Abdominal exam: PRESENT: normal bowel sounds, soft. ABSENT: distended, guarding, mass, organolmegaly, rebound, tenderness Neurological exam: PRESENT: alert, awake, oriented to person, oriented to place , oriented to time, oriented to situation, CN II-XII grossly intact. ABSENT: motor sensory deficit Psychiatric exam: PRESENT: appropriate affect, normal mood. ABSENT: homicidal ideation, suicidal ideation Results Laboratory Results: 04/25/18 06:21 04/24/18 06:47 04/25/18 04/25/18 06:21 06:21 WBC 12.9 H D RBC 3.85 Hgb 9.5 L Hct 28.8 L MCV 75 L MCH 24.7 L MCHC 33.1 RDW 16.2 H Plt Count 342 Seg Neutrophils % 91.0 H Lymphocytes % 6.7 L Monocytes % 2.3 L Eosinophils % 0.0 Basophils % 0.0 Absolute Neutrophils 11.7 H Absolute Lymphocytes 0.9 Absolute Monocytes 0.3 Absolute Eosinophils 0.0 Absolute Basophils 0.0 Magnesium 2.1 04/23/18 04/23/18 04/24/18 18:49 18:49 00:49 Creatine Kinase 151 H 155 H CK-MB (CK-2) 0.65 Troponin I < 0.012 04/24/18 04/24/18 04/24/18 00:49 06:47 06:47 Creatine Kinase 144 H CK-MB (CK-2) 0.62 0.83 Troponin I < 0.012 < 0.012 Impressions: Chest X-Ray 04/23/18 13:26 IMPRESSION: NO ACUTE RADIOGRAPHIC FINDING IN THE CHEST. Assessment & Plan - Diagnosis (1) Acute exacerbation of COPD with asthma Is this a current diagnosis for this admission?: Yes Plan: 04/23/2018 patient with history of COPD, obstructive airway disease came to the [facility] emergency room for COPD exacerbation. In the emergency room she was in severe respiratory distress with hypoxia she was placed on BiPAP, and I started her on IV Solu-Medrol, DuoNeb nebulizations every 4 as needed, started on IV antibiotic therapy, and requested for incentive spirometry. Cultures and sputum cultures were requested. Chest x-ray interpretation is negative for pneumonia. Going to do the ABGs on daily basis. VBG done in the ER pH is 7.3, PCO2 is 58 bicarb is 28. To repeat the ABG in the morning. 04/24/2018 admitted with acute exacerbation of COPD. She was placed on BiPAP IV Solu-Medrol DuoNeb nebulizations IV antibiotics. On incentive spirometry. ABG today pH is 7.36/PCO2 45 PO2 140 bicarb is 25. The cultures are pending. X- rays negative for pneumonia. Patient is afebrile. 04/25/2018 On examination bilateral wheezing is present much improved compared to yesterday she is still tachycardic. Pulse ox on 2 L is 99%. I decreased IV Solu-Medrol to 60 mg every 12. The culture showing negative. She is still getting the nebulizer treatments, incentive spirometry. X-rays negative for pneumonia. And is on IV Levaquin 500 mg daily for prophylactic/for possible bronchitis. (2) Anemia Qualifiers: Anemia type: unspecified type Qualified Code(s): D64.9 - Anemia, unspecified Is this a current diagnosis for this admission?: Yes Plan: 04/23/2018 patient is giving history of anemia in December hemoglobin is 8.2. Hemoglobin is 12.8. 04/24/2018 patient has history of anemia. Present hemoglobin is 10.9. 04/25/2018 admission hemoglobin is 12.8. Today's hemoglobin is 10.9, today's hemoglobin is 9.5. I am going to check the CBC tomorrow if the hemoglobin is low may we will give 1 unit of blood transfusion. (3) GERD (gastroesophageal reflux disease) Qualifiers: Esophagitis presence: esophagitis presence not specified Qualified Code(s) : K21.9 - Gastro-esophageal reflux disease without esophagitis Is this a current diagnosis for this admission?: Yes Plan: 04/23/2018 patient has history of gastric further reflux disease. I started her on famotidine 20 mg IV twice daily. 04/24/2018 no complaints today will continue famotidine 20 mg IV twice daily. 04/25/2018 switched famotidine from IV to p.o. today. (4) Rheumatoid arthritis Qualifiers: Rheumatoid arthritis location: unspecified site Is this a current diagnosis for this admission?: Yes Plan: 04/23/2018 patient given the history of rheumatoid arthritis. She has chronic pain secondary to rheumatoid arthritis. She is in p.o. prednisone at home. It was on hold now because patient is on IV Solu-Medrol. 04/24/2018 patient has history of chronic pain secondary to rheumatoid arthritis. She is on IV Solu-Medrol at this point. 04/25/2018 no complaints from the patient today. We will continue the present management. (5) GERD (gastroesophageal reflux disease) Is this a current diagnosis for this admission?: Yes (6) Depression Qualifiers: Depression Type: unspecified Qualified Code(s): F32.9 - Major depressive disorder, single episode, unspecified Is this a current diagnosis for this admission?: Yes Plan: 04/23/2018 patient given the chronic history of depression and anxiety. During the examination in the emergency room she denies any symptoms of anxiety depression. She is on duloxetine 60 mg p.o. twice daily and alprazolam 1 mg 3 times a day at home. I resume her home medications. 04/24/2018 no complaints of depression anxiety today. Is on duloxetine 60 mg p.o. twice daily alprazolam 1 mg 3 times day. 04/25/2018 denies any complaints of anxiety depression. We will continue the present management. - Time Time Spent with patient: 15-24 minutes Medications reviewed and adjusted accordingly: Yes Anticipated discharge: Home
[2018-04-25] MEDS: ZOLPIDEM TARTRATE 5 MG TABLET PO PRN (21:45)
[2018-04-25] MEDS: FAMOTIDINE 20 MG TABLET PO SCH (21:46)
[2018-04-25] MEDS: MONTELUKAST SODIUM 10 MG TABLET PO SCH (21:46)
[2018-04-25] MEDS: LEVOFLOXACIN 750 MG/D5W RTU 750 MG/150 ML RTUPB IV SCH (21:48)
[2018-04-26] MEDS: INSULIN REG, HUMAN 100 UNIT/ML 3 ML VIAL (PYX) SUBCUT PRN (01:15)
[2018-04-26] MEDS: METHYLPREDNISOLONE INJ 125 MG/2 ML SDV IV SCH (05:41)
[2018-04-26 06:30] LABS: HEMATOCRIT 29.4 % (36.0-47.0); HEMOGLOBIN 9.7 g/dL (12.0-15.5); MEAN CORPUSCULAR HGB CONC 33.1 g/dL (32.0-36.0); MEAN CORPUSCULAR VOLUME 76 fl (80-97); PLATELET COUNT 350 10^3/uL (150-450); RED BLOOD COUNT 3.89 10^6/uL (3.72-5.28); RED CELL DISTRIBUTION WIDTH 16.5 % (11.5-14.0); WHITE BLOOD COUNT 14.9 10^3/uL (4.0-10.5)
[2018-04-26 07:23] LABS: ABSOLUTE LYMPHOCYTES# (MANUAL) 2.2 10^3/uL (0.5-4.7); ABSOLUTE MONOCYTES # (MANUAL) 0.3 10^3/uL (0.1-1.4); ABSOLUTE NEUTROPHILS# (MANUAL) 12.4 10^3/uL (1.7-8.2); BAND NEUTROPHILS % (MANUAL) 3 % (3-5); BASOPHILS % (MANUAL) 0 % (0-2); EOSINOPHILS % (MANUAL) 0 % (0-6); LYMPHOCYTES % (MANUAL) 15 % (13-45); METAMYELOCYTES % (MANUAL) 1 % (0); MONOCYTES % (MANUAL) 2 % (3-13); SEGMENTED NEUTROPHILS % (MAN) 79 % (42-78); TOTAL CELLS COUNTED 100
[2018-04-26 07:24] LABS: ANISOCYTOSIS 1+; HYPOCHROMASIA SLIGHT; OVALOCYTES 1+; PLATELET COMMENT ADEQUATE; POIKILOCYTOSIS 1+; TOXIC GRANULATION SLIGHT; TOXIC VACUOLATION PRESENT
[2018-04-26] MEDS: GUAIFENESIN 600 MG TABLET.SA PO SCH ×2 (09:43→21:39)
[2018-04-26] MEDS: ENOXAPARIN SODIUM INJ 40 MG/0.4 ML DISP.SYRIN SUBCUT SCH (09:43)
[2018-04-26] MEDS: PRENATAL VITAMIN W DHA CAPSULE PO SCH (09:43)
[2018-04-26] MEDS: FAMOTIDINE 20 MG TABLET PO SCH ×2 (09:43→21:38)
[2018-04-26] MEDS: CETIRIZINE 10 MG TABLET PO SCH (09:43)
[2018-04-26] MEDS: BUDESONIDE/FORMOTEROL 160-4.5 MCG 60 PUFF/6 GM MDI IH SCH ×2 (09:44→17:37)
[2018-04-26] MEDS: DULOXETINE HCL 30 MG CAPSULE.DR PO SCH ×2 (09:44→17:36)
[2018-04-26] MEDS: FLUTICASONE NASAL SPRAY 50 MCG/SPRY 120 SPRAY/16 GM NASL SCH (09:44)
--- NOTE | 2018-04-26 10:54 | PDOC PROGRESS REPORT ---
Subjective Progress Note for:: 04/26/18 Subjective:: 04/23/2018 43 year old female past medical history of COPD, rheumatoid arthritis, EMEA, history of acid reflux disease, obstructive airway disease, anxiety, depression , to the emergency room with complaints of worsening shortness of breath and wheezing for the last 3 days in association with cough and productive green sputum. Patient said she was in the hospital 1 month ago with a similar problem she never recovered to the baseline and as above for the last 3 days symptoms are getting worse he decided to come to the emergency room for further evaluation. Is also given the history of chest pain and coughing body aches and coughing. Also given the history of running and also clear discharge. Also given the history of nausea and vomiting's especially yesterday. Denies any diarrhea. Denies any rashes. Has any headaches dizzy spells or falls. She was evaluated in the emergency room was started on BiPAP and nebulizer treatments were given. 04/24/2018 no acute events in the last 24 hours. Patient is afebrile. Patient is to continue to be on BiPAP. Discussed the care with the partner. He is happy with the improvement. Patient is sleeping at now. 04/25/2018 acute events in the last 24 hours. Patient is afebrile. Patient is using BiPAP at night. No complaints from the patient today. 04/26/2018 no acute events in the last 24 hours. Patient is afebrile. Patient complaining of anxiety, wheezing, shortness of breath on talking, Reason For Visit: COPD EXACERBATION Physical Exam Vital Signs: Temp Pulse Resp BP Pulse Ox 97.3 F 110 H 16 125/62 97 04/26/18 08:00 04/26/18 09:49 04/26/18 09:49 04/26/18 08:00 04/26/18 09:49 Intake & Output 04/25/18 04/26/18 04/27/18 06:59 06:59 06:59 Intake Total 3247 2064 Balance 3247 2064 Weight 92.3 kg 94.9 kg General appearance: PRESENT: mild distress Head exam: PRESENT: atraumatic Eye exam: PRESENT: PERRLA Mouth exam: PRESENT: moist Neck exam: ABSENT: carotid bruit, JVD, lymphadenopathy, thyromegaly Respiratory exam: PRESENT: decreased breath sounds, rhonchi, wheezes, other - Patient has extensive bilateral lower bases wheezing is present patient short of breath on communicating. Cardiovascular exam: PRESENT: tachycardia GI/Abdominal exam: PRESENT: normal bowel sounds, soft. ABSENT: ascites, distended, guarding, mass, organolmegaly, rebound, tenderness Neurological exam: PRESENT: alert, awake, oriented to person, oriented to place , oriented to time, oriented to situation, CN II-XII grossly intact. ABSENT: motor sensory deficit Psychiatric exam: PRESENT: anxious Results Laboratory Results: 04/26/18 05:53 04/24/18 06:47 04/26/18 04/26/18 05:53 05:53 WBC 14.9 H RBC 3.89 Hgb 9.7 L Hct 29.4 L MCV 76 L MCH 25.0 L MCHC 33.1 RDW 16.5 H Plt Count 350 Seg Neutrophils % Not Reportable Lymphocytes % Not Reportable Monocytes % Not Reportable Eosinophils % Not Reportable Basophils % Not Reportable Absolute Neutrophils Not Reportable Absolute Lymphocytes Not Reportable Absolute Monocytes Not Reportable Absolute Eosinophils Not Reportable Absolute Basophils Not Reportable Magnesium 2.3 04/23/18 20:15 Sputum Gram Stain - Final 04/23/18 20:15 Sputum Sputum Culture - Final NORMAL ALYSSA 04/23/18 04/23/18 04/24/18 18:49 18:49 00:49 Creatine Kinase 151 H 155 H CK-MB (CK-2) 0.65 Troponin I < 0.012 04/24/18 04/24/18 04/24/18 00:49 06:47 06:47 Creatine Kinase 144 H CK-MB (CK-2) 0.62 0.83 Troponin I < 0.012 < 0.012 Impressions: Chest X-Ray 04/23/18 13:26 IMPRESSION: NO ACUTE RADIOGRAPHIC FINDING IN THE CHEST. Assessment & Plan - Diagnosis (1) Acute exacerbation of COPD with asthma Is this a current diagnosis for this admission?: Yes Plan: 04/23/2018 patient with history of COPD, obstructive airway disease came to the [facility] emergency room for COPD exacerbation. In the emergency room she was in severe respiratory distress with hypoxia she was placed on BiPAP, and I started her on IV Solu-Medrol, DuoNeb nebulizations every 4 as needed, started on IV antibiotic therapy, and requested for incentive spirometry. Cultures and sputum cultures were requested. Chest x-ray interpretation is negative for pneumonia. Going to do the ABGs on daily basis. VBG done in the ER pH is 7.3, PCO2 is 58 bicarb is 28. To repeat the ABG in the morning. 04/24/2018 admitted with acute exacerbation of COPD. She was placed on BiPAP IV Solu-Medrol DuoNeb nebulizations IV antibiotics. On incentive spirometry. ABG today pH is 7.36/PCO2 45 PO2 140 bicarb is 25. The cultures are pending. X- rays negative for pneumonia. Patient is afebrile. 04/25/2018 On examination bilateral wheezing is present much improved compared to yesterday she is still tachycardic. Pulse ox on 2 L is 99%. I decreased IV Solu-Medrol to 60 mg every 12. The culture showing negative. She is still getting the nebulizer treatments, incentive spirometry. X-rays negative for pneumonia. And is on IV Levaquin 500 mg daily for prophylactic/for possible bronchitis. 04/26/2018 Patient has extensive wheezing at the bases on examination today. Short of breath on examination. Patient has difficulty in completing the sentences. Pulse ox is pulse ox is 94% on 2 Lts patient is on IV Solu-Medrol 60 mg every 12 hours, getting nebulizations every 4 as needed, incentive spirometry. He is on oxygen 2 L nasal cannula. She did not use any BiPAP last night. X-ray was negative. Blood cultures are negative for infection. We will continue the present management. Patient is also on IV Levaquin 500 mg daily. (2) Anemia Qualifiers: Anemia type: unspecified type Qualified Code(s): D64.9 - Anemia, unspecified Is this a current diagnosis for this admission?: Yes Plan: 04/23/2018 patient is giving history of anemia in December hemoglobin is 8.2. Hemoglobin is 12.8. 04/24/2018 patient has history of anemia. Present hemoglobin is 10.9. 04/25/2018 admission hemoglobin is 12.8. Today's hemoglobin is 10.9, today's hemoglobin is 9.5. I am going to check the CBC tomorrow if the hemoglobin is low may we will give 1 unit of blood transfusion. 04/26/2018-yesterday's hemoglobin is 9.5. Repeat hemoglobin today is 9.7. Stable. I am going to hold off on blood transfusion for now. (3) GERD (gastroesophageal reflux disease) Qualifiers: Esophagitis presence: esophagitis presence not specified Qualified Code(s) : K21.9 - Gastro-esophageal reflux disease without esophagitis Is this a current diagnosis for this admission?: Yes Plan: 04/23/2018 patient has history of gastric further reflux disease. I started her on famotidine 20 mg IV twice daily. 04/24/2018 no complaints today will continue famotidine 20 mg IV twice daily. 04/25/2018 switched famotidine from IV to p.o. today. 04/26/2018 patient is getting famotidine 20 mg p.o. twice daily for a GI prophylaxis. (4) Rheumatoid arthritis Qualifiers: Rheumatoid arthritis location: unspecified site Is this a current diagnosis for this admission?: Yes Plan: 04/23/2018 patient given the history of rheumatoid arthritis. She has chronic pain secondary to rheumatoid arthritis. She is in p.o. prednisone at home. It was on hold now because patient is on IV Solu-Medrol. 04/24/2018 patient has history of chronic pain secondary to rheumatoid arthritis. She is on IV Solu-Medrol at this point. 04/25/2018 no complaints from the patient today. We will continue the present management. 04/26/2018 patient denies any complaints of joint pains. She is on IV Solu- Medrol. At home she is on p.o. prednisone. We will continue the present management. (5) GERD (gastroesophageal reflux disease) Is this a current diagnosis for this admission?: Yes (6) Depression Qualifiers: Depression Type: unspecified Qualified Code(s): F32.9 - Major depressive disorder, single episode, unspecified Is this a current diagnosis for this admission?: Yes Plan: 04/23/2018 patient given the chronic history of depression and anxiety. During the examination in the emergency room she denies any symptoms of anxiety depression. She is on duloxetine 60 mg p.o. twice daily and alprazolam 1 mg 3 times a day at home. I resume her home medications. 04/24/2018 no complaints of depression anxiety today. Is on duloxetine 60 mg p.o. twice daily alprazolam 1 mg 3 times day. 04/25/2018 denies any complaints of anxiety depression. We will continue the present management. 04/26/2018 patient denies any complaints of anxious anxiety depression. But she looks anxious. Patient presently on duloxetine 60 mg p.o. twice daily and alprazolam 1 mg p.o. 3 times daily. We will continue the present management. - Time Time Spent with patient: 15-24 minutes Medications reviewed and adjusted accordingly: Yes Anticipated discharge: Home
[2018-04-26] MEDS: ALPRAZOLAM 0.5 MG TABLET PO PRN (11:00)
[2018-04-26] MEDS ORDERED: ONDANSETRON HCL INJ/PF 4 MG/2 ML SDV IV PRN (11:30)
[2018-04-26] MEDS: MONTELUKAST SODIUM 10 MG TABLET PO SCH (21:38)
[2018-04-26] MEDS: ZOLPIDEM TARTRATE 5 MG TABLET PO PRN (21:38)
[2018-04-26] MEDS: LEVOFLOXACIN 750 MG/D5W RTU 750 MG/150 ML RTUPB IV SCH (21:39)
[2018-04-26] MEDS ORDERED: METHYLPREDNISOLONE INJ 125 MG/2 ML SDV IV SCH (22:00)
[2018-04-27 06:58] LABS: HEMATOCRIT 29.8 % (36.0-47.0); MEAN CORPUSCULAR HEMOGLOBIN 24.9 pg (27.0-33.4); MEAN CORPUSCULAR HGB CONC 33.5 g/dL (32.0-36.0); MEAN CORPUSCULAR VOLUME 75 fl (80-97); PLATELET COUNT 340 10^3/uL (150-450); RED CELL DISTRIBUTION WIDTH 16.4 % (11.5-14.0); WHITE BLOOD COUNT 10.9 10^3/uL (4.0-10.5)
[2018-04-27 07:13] LABS: ALANINE AMINOTRANSFERASE 13 U/L (9-52); ALBUMIN 3.5 g/dL (3.5-5.0); ALKALINE PHOSPHATASE 51 U/L (38-126); ANION GAP 10 (5-19); ASPARTATE AMINO TRANSFERASE 13 U/L (14-36); BILIRUBIN,DIRECT 0.2 mg/dL (0.0-0.4); BILIRUBIN,TOTAL 0.3 mg/dL (0.2-1.3); BLOOD UREA NITROGEN 12 mg/dL (7-20); CALCIUM 8.7 mg/dL (8.4-10.2); CARBON DIOXIDE 28 mmol/L (22-30); CHLORIDE 102 mmol/L (98-107); GLUCOSE 139 mg/dL (75-110); POTASSIUM 4.3 mmol/L (3.6-5.0); SODIUM 140.4 mmol/L (137-145); TOTAL PROTEIN 6.2 g/dL (6.3-8.2)
[2018-04-27 07:21] LABS: ABSOLUTE LYMPHOCYTES# (MANUAL) 1.3 10^3/uL (0.5-4.7); ABSOLUTE MONOCYTES # (MANUAL) 0.5 10^3/uL (0.1-1.4); BAND NEUTROPHILS % (MANUAL) 3 % (3-5); BASOPHILS % (MANUAL) 0 % (0-2); EOSINOPHILS % (MANUAL) 0 % (0-6); LYMPHOCYTES % (MANUAL) 12 % (13-45); METAMYELOCYTES % (MANUAL) 1 % (0); MONOCYTES % (MANUAL) 5 % (3-13); SEGMENTED NEUTROPHILS % (MAN) 79 % (42-78); TOTAL CELLS COUNTED 100
[2018-04-27 07:23] LABS: ANISOCYTOSIS 1+; HYPOCHROMASIA 1+; OVALOCYTES 1+; PLATELET COMMENT ADEQUATE; POIKILOCYTOSIS 1+; POLYCHROMASIA SLIGHT
[2018-04-27] MEDS ORDERED: PREDNISONE 20 MG TABLET PO SCH (10:00)
[2018-04-27] MEDS: IPRATROPIUM/ALBUTEROL 0.5-2.5 MG/3 ML AMPUL NEB PRN (10:27)
[2018-04-27] MEDS: FAMOTIDINE 20 MG TABLET PO SCH (10:52)
[2018-04-27] MEDS: DULOXETINE HCL 30 MG CAPSULE.DR PO SCH (10:52)
[2018-04-27] MEDS: PRENATAL VITAMIN W DHA CAPSULE PO SCH (10:52)
[2018-04-27] MEDS: ENOXAPARIN SODIUM INJ 40 MG/0.4 ML DISP.SYRIN SUBCUT SCH (10:54)
[2018-04-27] MEDS: FLUTICASONE NASAL SPRAY 50 MCG/SPRY 120 SPRAY/16 GM NASL SCH (10:55)
[2018-04-27] MEDS: CETIRIZINE 10 MG TABLET PO SCH (10:55)
[2018-04-27] MEDS: BUDESONIDE/FORMOTEROL 160-4.5 MCG 60 PUFF/6 GM MDI IH SCH (10:55)
[2018-04-27] MEDS: GUAIFENESIN 600 MG TABLET.SA PO SCH (10:56)
[2018-04-27] MEDS ORDERED: MAGNESIUM HYDROXIDE SUSP 30 ML UDCUP PO ONE (12:51)
[2018-04-27] MEDS ORDERED: BISACODYL 10 MG SUPP.RECT PR PRN (12:52)
[2018-04-27 13:24] VITALS: BP 106/60
--- NOTE | 2018-04-28 17:18 | PDOC DISCHARGE SUMMARY ---
General - Admit/Disc Date/PCP Admission Date/Primary Care Provider: 04/23/18 17:52 ALLEGRA PICKETT, Discharge Date: 04/27/18 - Discharge Diagnosis (1) Acute respiratory failure with hypoxia Is this a current diagnosis for this admission?: Yes Summary: Resolved; secondary to COPD exacerbation. ABG demonstrated compensated respiratory acidosis with hypercapnia. Patient was admitted to the medical floor on continuous cardiac telemetry. She was initially provided noninvasive pressure support with BiPAP, supplemental oxygen, IV Solu-Medrol, scheduled and as needed nebulizer treatments, Mucinex, incentive spirometry and flutter valve. She was empirically placed on IV Levaquin for treatment of a bronchitis. The patient's respiratory symptoms gradually improved until the patient was no longer O2 dependent and ambulatory on room air without tachypnea, tachycardia, or symptoms of dyspnea on exertion. The patient tells me that she is established with a joggle press operator and will be able to follow-up with him shortly after discharge. At time of discharge, the patient is in stable condition, maintaining oxygen saturations on room air, and nearly to her baseline respiratory status. She is discharged with a prescription for prednisone taper. She is instructed to follow-up with her primary care provider within 1 week, to notify Dr. Dave's office of her admission and follow-up as directed, and return to the emergency department as needed for any concerning symptoms. (2) Acute exacerbation of COPD with asthma Is this a current diagnosis for this admission?: Yes Summary: Significantly improved; management as above. (3) Anemia Is this a current diagnosis for this admission?: Yes Summary: Stable. Pt with history of chronic anemia; Hgb 12.8 on admission. Hgb did drift down to 10.0 with IV fluids but remained stable. Patient is without signs of active bleeding. Recommend continued multivitamin with iron supplementation. (4) Depression Is this a current diagnosis for this admission?: Yes Summary: Stable. Outpatient medication regiment was continued. (5) GERD (gastroesophageal reflux disease) Is this a current diagnosis for this admission?: Yes Summary: Recommend continued PPI at discharge. (6) Rheumatoid arthritis Is this a current diagnosis for this admission?: Yes Summary: The patient is provided a steroid taper for management of her asthma exacerbation; she is instructed to resume her chronic steroid therapy upon completion of taper. - Additional Information Discharge Diet: Cardiac Discharge Activity: Activity As Tolerated, Balance Activity w/Rest, Slowly Increase Activity Prescriptions: Docusate Sodium [Dulcolax Stool Softener] 100 mg PO BIDP PRN #60 capsule PRN Reason: For Constipation Prednisone [Deltasone 20 mg Tablet] 60 mg PO DAILY #15 tablet Home Medications: Acetaminophen [Tylenol 325 mg Tablet] 650 mg PO Q4HP PRN 04/23/18 Albuterol Sulfate [Proair HFA Inhalation Aerosol 8.5 gm MDI] 2 puff IH Q4HP PRN 04/23/18 Alprazolam [Xanax] 1 mg PO TIDP PRN 04/23/18 Brexpiprazole [Rexulti] 0.5 mg PO DAILY 04/23/18 Budesonide/Formoterol Fumarate [Symbicort HFA 160-4.5 mcg Inhaler 6 gm] 2 puff IH BID 04/23/18 Cetirizine HCl [Zyrtec 10 mg Tablet] 10 mg PO DAILY 04/23/18 Duloxetine HCl [Cymbalta] 60 mg PO BID 04/23/18 Fluticasone Propionate [Flonase Nasal [place] 50 Mcg/[place] 16 gm] 2 spray NASL DAILYP PRN 04/23/18 Guaifenesin [Mucinex] 600 mg PO Q12 04/23/18 Hydroxyzine Pamoate [Vistaril 25 mg Capsule] 25 mg PO TIDP PRN 04/23/18 Montelukast Sodium [Singulair 10 mg Tablet] 10 mg PO DAILY 04/23/18 Multivit with Calcium,Iron,Min [Women's Daily Formula] 1 tab PO DAILY 04/23/18 Omalizumab [Xolair Inj 150 mg Vial] 225 mg SQ Q14D 04/23/18 Pantoprazole Sodium [Protonix] 40 mg PO DAILY 04/23/18 Prednisone [Deltasone 10 mg Tablet] 10 mg PO DAILY 04/23/[address] [Spiriva Respimat] 2 puff IH QAM 04/23/18 Zolpidem Tartrate [Ambien] 10 mg PO HSP PRN 04/23/18 Acetaminophen [Tylenol 325 mg Tablet] 650 mg PO Q4HP PRN tablet 04/27/18 Alprazolam [Xanax 0.5 mg Tablet] 1 mg PO TIDP PRN tablet 04/27/18 Brexpiprazole [Rexulti] 0.5 mg PO .DAILY 04/27/18 Budesonide/Formoterol Fumarate [Symbicort HFA 160-4.5 mcg Inhaler 6 gm] 2 puff IH BID inhaler 04/27/18 Cetirizine HCl [Zyrtec 10 mg Tablet] 10 mg PO DAILY tablet 04/27/18 Docusate Sodium [Dulcolax Stool Softener] 100 mg PO BIDP PRN #60 capsule Duloxetine HCl [Cymbalta 30 mg Capsule.dr] 60 mg PO BID capsule.dr 04/27/18 Fluticasone Propionate [Flonase Nasal [place] 50 Mcg/[place] 16 gm] 2 spray NASL DAILY spray.pump 04/27/18 Guaifenesin [Mucinex Sr 600 mg Tablet.sa] 600 mg PO Q12 tablet.sa 04/27/18 Montelukast Sodium [Singulair 10 mg Tablet] 10 mg PO QHS tablet 04/27/18 Prednisone [Deltasone 20 mg Tablet] 60 mg PO DAILY #15 tablet 04/27/18 Vit/Dha [ Multi + Dha Capsule] 1 cap PO DAILY capsule Tiotropium [place] [Spiriva Respimat] 2 puff IH .QAM 04/27/18 Zolpidem Tartrate [Ambien 5 mg Tablet] 10 mg PO HSP PRN tablet 04/27/18 History of Present Illness History of Present Illness: Per H&P by Dr. Beth: ARABELLA SINGLETON is a 43 year old female past medical history of COPD, rheumatoid arthritis, EMEA, history of acid reflux disease, obstructive airway disease, anxiety, depression, to the emergency room with complaints of worsening shortness of breath and wheezing for the last 3 days in association with cough and productive green sputum. Patient said she was in the hospital 1 month ago with a similar problem she never recovered to the baseline and as above for the last 3 days symptoms are getting worse he decided to come to the emergency room for further evaluation. Is also given the history of chest pain and coughing body aches and coughing. Also given the history of running and also clear discharge. Also given the history of nausea and vomiting's especially yesterday. Denies any diarrhea. Denies any rashes. Has any headaches dizzy spells or falls. She was evaluated in the emergency room was started on BiPAP and nebulizer treatments were given. Physical Exam Vital Signs: Temp Pulse Resp BP Pulse Ox 97.8 F 95 18 106/60 94 04/27/18 13:18 04/27/18 13:18 04/27/18 13:18 04/27/18 13:18 04/27/18 13:18 Intake & Output 04/27/18 04/28/18 04/29/18 06:59 06:59 06:59 Intake Total 450 236 Output Total 800 Balance -350 236 Weight 169.4 kg General appearance: PRESENT: no acute distress, obese, well-developed, well- nourished Head exam: PRESENT: atraumatic, normocephalic Eye exam: PRESENT: conjunctiva pink, EOMI, PERRLA. ABSENT: scleral icterus Ear exam: PRESENT: normal external ear exam Mouth exam: PRESENT: moist, tongue midline Neck exam: ABSENT: carotid bruit, JVD, lymphadenopathy, thyromegaly Respiratory exam: PRESENT: prolonged expiratory phas, symmetrical, unlabored, wheezes. ABSENT: rales, rhonchi Cardiovascular exam: PRESENT: RRR. ABSENT: diastolic murmur, rubs, systolic murmur Pulses: PRESENT: normal dorsalis pedis pul Vascular exam: PRESENT: normal capillary refill GI/Abdominal exam: PRESENT: normal bowel sounds, soft. ABSENT: distended, guarding, mass, organolmegaly, rebound, tenderness Rectal exam: PRESENT: deferred Extremities exam: PRESENT: full ROM. ABSENT: calf tenderness, clubbing, pedal edema Neurological exam: PRESENT: alert, awake, oriented to person, oriented to place , oriented to time, oriented to situation, CN II-XII grossly intact. ABSENT: motor sensory deficit Psychiatric exam: PRESENT: appropriate affect, normal mood. ABSENT: homicidal ideation, suicidal ideation Skin exam: PRESENT: dry, intact, warm. ABSENT: cyanosis, rash Results Laboratory Results: 04/27/18 06:24 04/27/18 06:24 04/23/18 04/23/18 04/24/18 18:49 18:49 00:49 Creatine Kinase 151 H 155 H CK-MB (CK-2) 0.65 Troponin I < 0.012 04/24/18 04/24/18 04/24/18 00:49 06:47 06:47 Creatine Kinase 144 H CK-MB (CK-2) 0.62 0.83 Troponin I < 0.012 < 0.012 Impressions: Chest X-Ray 04/23/18 13:26 IMPRESSION: NO ACUTE RADIOGRAPHIC FINDING IN THE CHEST. Qualifiers - * PATIENT BEING DISCHARGED WITH ANY OF THE FOLLOWING DIAGNOSIS: No Plan Discharge Plan: Discharged home with self-care. Continue steroid taper. Follow-up with primary care provider within 1 week. Follow-up with established joggle press operator, Dr. Dave, as scheduled at the end of the month. Return to the emergency department as needed for any concerning symptoms. Time Spent: Less than 30 Minutes
== END 2018-04-27 13:50 | disposition home or self-care (01) | DRG 189 ==
LOC: ER 13:19 → EH 17:52 → 3S 19:05
PROVIDERS: ADMIT Emergency Medicine; ATTEND Emergency Medicine
DX: J96.01 Acute respiratory failure with hypoxia (principal); J44.1 Chronic obstructive pulmonary disease with (acute) exacerbation; K21.9 Gastro-esophageal reflux disease without esophagitis; D64.9 Anemia, unspecified; M06.9 Rheumatoid arthritis, unspecified; F32.9 Major depressive disorder, single episode, unspecified; F41.1 Generalized anxiety disorder; Z86.73 Personal history of transient ischemic attack (TIA), and cerebral infarction without residual deficits
CPT/HCPCS: 36415; 71045; 80053; 82550; 82553; 82803; 82962; 83036; 83735; 84443; 84484; 85025; 87040; 87070; 87205; 90686; 93005; 93010; 94660; 94799; J0171; J1650; J1815; J1956; J2405; J2930; J3475; J3490; J7030; J7512; J7620; S0028

== ENCOUNTER → 2018-06-07 | Outpatient (CLI) | payer MEDICARE, MEDICAID ==
[2018-06-07 13:52] LABS: ABSOLUTE BASOPHILS # (AUTO) 0.1 10^3/uL (0.0-0.2); ABSOLUTE LYMPHOCYTES (AUTO) 3.4 10^3/uL (0.5-4.7); ABSOLUTE MONOCYTES (AUTO) 0.7 10^3/uL (0.1-1.4); ABSOLUTE NEUT (AUTO) 3.7 10^3/uL (1.7-8.2); BASOPHILS % (AUTO) 0.9 % (0-2); EOSINOPHILS % (AUTO) 0.6 % (0-6); HEMATOCRIT 31.6 % (36.0-47.0); HEMOGLOBIN 10.2 g/dL (12.0-15.5); MEAN CORPUSCULAR HEMOGLOBIN 24.1 pg (27.0-33.4); MEAN CORPUSCULAR HGB CONC 32.3 g/dL (32.0-36.0); MEAN CORPUSCULAR VOLUME 74 fl (80-97); MONOCYTES % (AUTO) 8.5 % (3-13); PLATELET COUNT 393 10^3/uL (150-450); RED BLOOD COUNT 4.24 10^6/uL (3.72-5.28); RED CELL DISTRIBUTION WIDTH 17.2 % (11.5-14.0); TOTAL CELLS COUNTED % (AUTO) 100 %; WHITE BLOOD COUNT 7.9 10^3/uL (4.0-10.5)
== END ==
LOC: OD 12:25
PROVIDERS: ATTEND Internal Medicine Critical Care Medicine
DX: J45.901 Unspecified asthma with (acute) exacerbation (principal); Z77.120 Contact with and (suspected) exposure to mold (toxic); J45.50 Severe persistent asthma, uncomplicated; R06.83 Snoring; J30.9 Allergic rhinitis, unspecified; F41.9 Anxiety disorder, unspecified; R53.83 Other fatigue; G47.30 Sleep apnea, unspecified; R06.01 Orthopnea; R59.1 Generalized enlarged lymph nodes; J45.40 Moderate persistent asthma, uncomplicated
CPT/HCPCS: 36415; 85025

== ENCOUNTER 2018-09-08 15:33 | Inpatient (IN) | payer MEDICARE, MEDICAID ==
[2018-09-08] MEDS ORDERED: IPRATROPIUM/ALBUTEROL 0.5-2.5 MG/3 ML AMPUL NEB ONE (15:46)
[2018-09-08] MEDS ORDERED: METHYLPREDNISOLONE INJ 125 MG/2 ML SDV IV ONE (15:46)
[2018-09-08] MEDS ORDERED: MAGNESIUM SULFATE/D5W 1 GM/100 ML RTUPB IV ONE ×2 (15:47)
--- NOTE | 2018-09-08 15:53 | ER Document Report ---
ED Medical Screen (RME) - General Chief Complaint: Shortness Of Breath Stated Complaint: DIFFICULTY BREATHING Time Seen by Provider: 09/08/18 15:46 Primary Care Provider: ALLEGRA PICKETT DO [Primary Care Provider] - Follow up as needed TRAVEL OUTSIDE OF THE [place] IN LAST 30 DAYS: No - HPI Notes: 09/08/18 15:52 Patient is a 43-year-old female with a history of COPD who presents to the emergency department complaining of dry cough, wheezing, shortness of breath, dyspnea that began 3 days ago. Denies ROMERO, fever, neck pain, URI, CP, Abd pain, or rash. I have treated and performed a rapid initial assessment of this patient. A comprehensive ED assessment and evaluation of the patient, analysis of test results and completion of medical decision making process will be conducted by additional ED providers. Charge nurse was immediately notified and patient was transferred to the only available room which is trauma to at this time. BiPAP was called and orders placed. I gave report to Dr. Bauman. PHYSICAL EXAMINATION: GENERAL: Patient is in moderate to significant respiratory distress. She is speaking in 1-2 word sentences before she runs out of breath. LUNGS: Wheezing throughout with tachypnea and shallow breathing. HEART: Regular rate and rhythm without murmurs, rubs, gallops. - Related Data Allergies/Adverse Reactions: cefuroxime axetil [From Ceftin] Allergy (Intermediate, Verified 09/08/18 15:35) Hives voriconazole [From Vfend] Adverse Reaction (Mild, Verified 09/08/18 15:35) Skin Redness Past Medical History - Past Medical History Cardiac Medical History: Denies: Hx Coronary Artery Disease, Hx Heart Attack, Hx Hypertension, Hx Pulmonary Embolism Pulmonary Medical History: Reports: Hx Asthma, Hx Bronchitis, Hx COPD - INHALERS, Hx Pneumonia Denies: Hx Respiratory Failure, Hx Sleep Apnea, Hx Tuberculosis Neurological Medical History: Denies: Hx Cerebrovascular Accident, Hx Seizures Renal/ Medical History: Denies: Hx Kidney Stones, Hx Peritoneal Dialysis Malignancy Medical History: Denies: Hx Lung Cancer GI Medical History: Reports: Hx Gastroesophageal Reflux Disease Musculoskeltal Medical History: Reports Hx Arthritis - RA Psychiatric Medical History: Reports: Hx Anxiety, Hx Depression - anxiety Past Surgical History: Reports: Hx Appendectomy, Hx Section - x 3, Hx Tubal Ligation, Other - Biopsy left neck mass benign, eye surgery, bronchoscopy at [facility]. Denies: Hx Pacemaker - Immunizations Immunizations up to date: Yes Hx Diphtheria, Pertussis, Tetanus Vaccination: Yes History of Influenza Vaccine for 02/2017 - 07/2017 Season: Yes Influenza Administration Date for 02/2017 - 07/2017 Season: 04/24/18 Physical Exam - Vital signs Vitals: Temp Pulse Resp BP Pulse Ox 98.1 F 94 24 H 125/59 L 98 09/08/18 15:41 09/08/18 15:41 09/08/18 15:41 09/08/18 15:41 09/08/18 15:41 Course - Vital Signs Vital signs: Temp Pulse Resp BP Pulse Ox 98.1 F 94 24 H 125/59 L 98 09/08/18 15:41 09/08/18 15:41 09/08/18 15:41 09/08/18 15:41 09/08/18 15:41 Doctor's Discharge - Discharge Referrals: ALLEGRA PICKETT DO [Primary Care Provider] - Follow up as needed
--- NOTE | 2018-09-08 16:02 | ER Document Report ---
ED General - General Chief Complaint: Shortness Of Breath Stated Complaint: DIFFICULTY BREATHING Time Seen by Provider: 09/08/18 15:46 Primary Care Provider: ALLEGRA PICKETT DO [Primary Care Provider] - Follow up as needed Notes: Patient is a 43-year-old female with history of asthma and severe allergies that presents to the emergency department for chief complaint of shortness of breath or difficulty breathing. Patient states that she is been compliant with her home medication including inhalers and 20 mg of prednisone, for her chronic lung disease, but while she was on a cruise, she stated that she started feeling more short of breath on Thursday and progressively worsened over the past several days to the point she decided come to the emergency department. She does see a logistics manager for this, and has been admitted to the hospital. She is currently on BiPAP, stating that she does feel much better. She also reports that she is taking doxycycline, that was recently prescribed. Past Medical History: Asthma, chronic lung disease, allergies, GERD Past Surgical History: Appendectomy, Social History: Denies tobacco, alcohol or illicit drug use. Family History: Reviewed and noncontributory for presenting illness Allergies: Reviewed, see documented allergy list. REVIEW OF SYSTEMS: Other than noted above, the 12 point review of systems was reviewed with the patient and were negative, all pertinent findings are included in the HPI. PHYSICAL EXAMINATION: Vital signs reviewed, nursing noted reviewed. GENERAL: Increased work of breathing, patient is currently on BiPAP, moderate respiratory distress HEAD: Atraumatic, normocephalic. EYES: Eyes appear normal, extraocular movements intact, sclera anicteric, conjunctiva are normal. ENT: nares patent, oropharynx clear without exudates. Moist mucous membranes. NECK: Normal range of motion, supple without lymphadenopathy LUNGS: Increased work of breathing, diminished lung sounds, with significant wheezing throughout all lung bobby. HEART: Regular rate and rhythm without murmurs ABDOMEN: Soft, nontender, normoactive bowel sounds. No rebound, guarding, or rigidity. No masses appreciated. EXTREMITIES: Nontender, good range of motion, no pitting or edema. NEUROLOGICAL: No focal neurological deficits. Moves all extremities spontaneously Motor and sensory grossly intact on exam. PSYCH: Normal mood, normal affect. SKIN: Warm, Dry, normal turgor, no rashes or lesions noted on exposed skin TRAVEL OUTSIDE OF THE [place] IN LAST 30 DAYS: No - Related Data Allergies/Adverse Reactions: cefuroxime axetil [From Ceftin] Allergy (Intermediate, Verified 09/08/18 15:35) Hives voriconazole [From Vfend] Adverse Reaction (Mild, Verified 09/08/18 15:35) Skin Redness Past Medical History - Social History Smoking Status: Never Smoker Family History: COPD - Father was zinc miner blasting in [place], CVA - Mother, DM - Her other , Other - Sisters with rheumatoid arthritis and cervical cancer each Patient has suicidal ideation: No Patient has homicidal ideation: No - Past Medical History Cardiac Medical History: Denies: Hx Coronary Artery Disease, Hx Heart Attack, Hx Hypertension, Hx Pulmonary Embolism Pulmonary Medical History: Reports: Hx Asthma, Hx Bronchitis, Hx COPD - INHALERS, Hx Pneumonia Denies: Hx Respiratory Failure, Hx Sleep Apnea, Hx Tuberculosis Neurological Medical History: Denies: Hx Cerebrovascular Accident, Hx Seizures Renal/ Medical History: Denies: Hx Kidney Stones, Hx Peritoneal Dialysis Malignancy Medical History: Denies: Hx Lung Cancer GI Medical History: Reports: Hx Gastroesophageal Reflux Disease Musculoskeletal Medical History: Reports Hx Arthritis - RA Psychiatric Medical History: Reports: Hx Anxiety, Hx Depression - anxiety Past Surgical History: Reports: Hx Appendectomy, Hx Section - x 3, Hx Tubal Ligation, Other - Biopsy left neck mass benign, eye surgery, bronchoscopy at [facility]. Denies: Hx Pacemaker - Immunizations Immunizations up to date: Yes Hx Diphtheria, Pertussis, Tetanus Vaccination: Yes Hx Pneumococcal Vaccination: 03/25/13 Physical Exam - Vital signs Vitals: Temp Pulse Resp BP Pulse Ox 98.1 F 94 24 H 125/59 L 98 09/08/18 15:41 09/08/18 15:41 09/08/18 15:41 09/08/18 15:41 09/08/18 15:41 Course - Re-evaluation Re-evalutation: Patient seen and examined vital signs reviewed. Laboratory data and imaging were ordered as appropriate for the patient's pres enting symptoms and complaint, with consideration of any critical or life threatening conditions that may be associated with their obtained history and exam as noted above. Patient was treated with BiPAP, duo nebs, IV magnesium, and IV Solu-Medrol Results were reviewed when available and demonstrated negative chest x-ray, blood work was otherwise unremarkable The patient was re-evaluated and was improving on BiPAP, but states that it was making her feel better and was not ready to come off of it Evaluation was most consistent with acute exacerbation of COPD and asthma Results were discussed with the patient at this point after careful consideration I feel that that patient should be admitted to the hospital. This was discussed with the patient that it is in the best interest for their care to be admitted for further evaluation and management. Patient agreed with this plan of care. A call was placed to the admitted physician, Dr. Seymour who graciously accepted the patient onto their service. *Note is created using voice recognition software and may contain spelling, syntax or grammatical errors. Laboratory 09/08/18 09/08/18 09/08/18 16:08 16:08 16:08 WBC 5.3 RBC 4.04 Hgb 9.4 L Hct 28.9 L MCV 72 L MCH 23.1 L MCHC 32.3 RDW 17.3 H Plt Count 346 Seg Neutrophils % 46.1 Lymphocytes % 37.5 Monocytes % 10.2 Eosinophils % 4.7 Basophils % 1.5 Absolute Neutrophils 2.5 Absolute Lymphocytes 2.0 Absolute Monocytes 0.5 Absolute Eosinophils 0.3 Absolute Basophils 0.1 Carbonic Acid HCO3/H2CO3 Ratio ABG pH ABG pCO2 ABG pO2 ABG HCO3 ABG Total CO2 ABG O2 Saturation ABG Base Excess FiO2 Sodium 139.1 Potassium 3.9 Chloride 106 Carbon Dioxide 25 Anion Gap 8 BUN 11 Creatinine 0.65 Est GFR ( Amer) > 60 Est GFR (Non-Af Amer) > 60 Glucose 97 Calcium 8.8 Total Bilirubin 0.2 Direct Bilirubin 0.2 Neonat Total Bilirubin Not Reportable Neonat Direct Bilirubin Not Reportable Neonat Indirect Bili Not Reportable AST 15 ALT 13 Alkaline Phosphatase 59 Troponin I < 0.012 NT-Pro-B Natriuret Pep 140 H Total Protein 6.7 Albumin 3.8 Serum HCG, Qual 09/08/18 09/08/18 16:08 16:08 WBC RBC Hgb Hct MCV MCH MCHC RDW Plt Count Seg Neutrophils % Lymphocytes % Monocytes % Eosinophils % Basophils % Absolute Neutrophils Absolute Lymphocytes Absolute Monocytes Absolute Eosinophils Absolute Basophils Carbonic Acid 1.40 H HCO3/H2CO3 Ratio 18:1 ABG pH 7.36 ABG pCO2 46.4 H ABG pO2 194.7 H ABG HCO3 25.4 H ABG Total CO2 26.9 H ABG O2 Saturation 99.3 H ABG Base Excess -0.2 FiO2 100% Sodium Potassium Chloride Carbon Dioxide Anion Gap BUN Creatinine Est GFR ( Amer) Est GFR (Non-Af Amer) Glucose Calcium Total Bilirubin Direct Bilirubin Neonat Total Bilirubin Neonat Direct Bilirubin Neonat Indirect Bili AST ALT Alkaline Phosphatase Troponin I NT-Pro-B Natriuret Pep Total Protein Albumin Serum HCG, Qual NEGATIVE Laboratory 09/08/18 09/08/18 09/08/18 16:08 16:08 16:08 WBC 5.3 RBC 4.04 Hgb 9.4 L Hct 28.9 L MCV 72 L MCH 23.1 L MCHC 32.3 RDW 17.3 H Plt Count 346 Seg Neutrophils % 46.1 Lymphocytes % 37.5 Monocytes % 10.2 Eosinophils % 4.7 Basophils % 1.5 Absolute Neutrophils 2.5 Absolute Lymphocytes 2.0 Absolute Monocytes 0.5 Absolute Eosinophils 0.3 Absolute Basophils 0.1 Carbonic Acid HCO3/H2CO3 Ratio ABG pH ABG pCO2 ABG pO2 ABG HCO3 ABG Total CO2 ABG O2 Saturation ABG Base Excess FiO2 Sodium 139.1 Potassium 3.9 Chloride 106 Carbon Dioxide 25 Anion Gap 8 BUN 11 Creatinine 0.65 Est GFR ( Amer) > 60 Est GFR (Non-Af Amer) > 60 Glucose 97 Calcium 8.8 Total Bilirubin 0.2 Direct Bilirubin 0.2 Neonat Total Bilirubin Not Reportable Neonat Direct Bilirubin Not Reportable Neonat Indirect Bili Not Reportable AST 15 ALT 13 Alkaline Phosphatase 59 Troponin I < 0.012 NT-Pro-B Natriuret Pep 140 H Total Protein 6.7 Albumin 3.8 Serum HCG, Qual 09/08/18 09/08/18 16:08 16:08 WBC RBC Hgb Hct MCV MCH MCHC RDW Plt Count Seg Neutrophils % Lymphocytes % Monocytes % Eosinophils % Basophils % Absolute Neutrophils Absolute Lymphocytes Absolute Monocytes Absolute Eosinophils Absolute Basophils Carbonic Acid 1.40 H HCO3/H2CO3 Ratio 18:1 ABG pH 7.36 ABG pCO2 46.4 H ABG pO2 194.7 H ABG HCO3 25.4 H ABG Total CO2 26.9 H ABG O2 Saturation 99.3 H ABG Base Excess -0.2 FiO2 100% Sodium Potassium Chloride Carbon Dioxide Anion Gap BUN Creatinine Est GFR ( Amer) Est GFR (Non-Af Amer) Glucose Calcium Total Bilirubin Direct Bilirubin Neonat Total Bilirubin Neonat Direct Bilirubin Neonat Indirect Bili AST ALT Alkaline Phosphatase Troponin I NT-Pro-B Natriuret Pep Total Protein Albumin Serum HCG, Qual NEGATIVE Chest X-Ray 09/08/18 15:46 IMPRESSION: NO ACUTE RADIOGRAPHIC FINDING IN THE CHEST. - Vital Signs Vital signs: Temp Pulse Resp BP Pulse Ox 98.1 F 94 17 125/59 L 99 09/08/18 15:41 09/08/18 15:41 09/08/18 17:00 09/08/18 15:41 09/08/18 17:00 - Laboratory Result Diagrams: 09/08/18 16:08 09/08/18 16:08 Laboratory results interpreted by me: 09/08/18 09/08/18 09/08/18 16:08 16:08 16:08 Hgb 9.4 L Hct 28.9 L MCV 72 L MCH 23.1 L RDW 17.3 H Carbonic Acid 1.40 H ABG pCO2 46.4 H ABG pO2 194.7 H ABG HCO3 25.4 H ABG Total CO2 26.9 H ABG O2 Saturation 99.3 H NT-Pro-B Natriuret Pep 140 H - EKG Interpretation by Me Additional EKG results interpreted by me: EKG demonstrates sinus rhythm with a ventricular rate of 95 bpm, normal axis, QTC 450 ms, nonspecific T wave inversion in lead III and aVF and V3 and V4. No ST elevation. Critical Care Note - Critical Care Note Total time excluding time spent on procedures (mins): 35 Comments: Critical care time 35 minutes exclusive from separate billable procedures for a patient requiring complex medical decision making, and high potential for clinical deterioration. In a patient requiring noninvasive positive pressure ventilation for her acute exacerbation of COPD and asthma. Time spent obtaining history from patient or surrogate, discussions with consultants, development of treatment plan with patient or surrogate, evaluation of patient's response to treatment, examination of patient, ordering and performing treatments and interventions, ordering and review of laboratory studies, re-evaluation of patient's condition, ordering and review of radiographic studies and review of old charts Discharge - Discharge Clinical Impression: Acute exacerbation of COPD with asthma, Acute respiratory failure with hypoxia Condition: Stable Disposition: ADMITTED INPATIENT Admitting Provider: Lion (Hospitalist) Unit Admitted: IMCU Referrals: ALLEGRA PICKETT DO [Primary Care Provider] - Follow up as needed
[2018-09-08] MEDS ORDERED: BUDESONIDE NEB 0.5 MG/2 ML AMPUL NEB ONE (16:10)
[2018-09-08 16:27] LABS: ABSOLUTE BASOPHILS # (AUTO) 0.1 10^3/uL (0.0-0.2); ABSOLUTE EOSINOPHILS # (AUTO) 0.3 10^3/uL (0.0-0.6); ABSOLUTE MONOCYTES (AUTO) 0.5 10^3/uL (0.1-1.4); ABSOLUTE NEUT (AUTO) 2.5 10^3/uL (1.7-8.2); BASOPHILS % (AUTO) 1.5 % (0-2); EOSINOPHILS % (AUTO) 4.7 % (0-6); HEMATOCRIT 28.9 % (36.0-47.0); HEMOGLOBIN 9.4 g/dL (12.0-15.5); LYMPHOCYTES % (AUTO) 37.5 % (13-45); MEAN CORPUSCULAR HEMOGLOBIN 23.1 pg (27.0-33.4); MEAN CORPUSCULAR HGB CONC 32.3 g/dL (32.0-36.0); MEAN CORPUSCULAR VOLUME 72 fl (80-97); MONOCYTES % (AUTO) 10.2 % (3-13); PLATELET COUNT 346 10^3/uL (150-450); RED BLOOD COUNT 4.04 10^6/uL (3.72-5.28); RED CELL DISTRIBUTION WIDTH 17.3 % (11.5-14.0); SEGMENTED NEUTROPHILS % (AUTO) 46.1 % (42-78); TOTAL CELLS COUNTED % (AUTO) 100 %; WHITE BLOOD COUNT 5.3 10^3/uL (4.0-10.5)
--- NOTE | 2018-09-08 16:33 | RADIOLOGY REPORT (SQ) ---
EXAM DESCRIPTION: CHEST SINGLE VIEW COMPLETED DATE/TIME: 09/08/2018 4:20 pm REASON FOR STUDY: SOB COMPARISON: 04/23/2018 EXAM PARAMETERS: NUMBER OF VIEWS: One view. TECHNIQUE: Single frontal radiographic view of the chest acquired. RADIATION DOSE: NA LIMITATIONS: None. FINDINGS: LUNGS AND PLEURA: No opacities, masses or pneumothorax. No pleural effusion. MEDIASTINUM AND HILAR STRUCTURES: No masses. Contour normal. HEART AND VASCULAR STRUCTURES: Heart normal in size. Normal vasculature. BONES: No acute findings. HARDWARE: None in the chest. OTHER: Obesity. IMPRESSION: NO ACUTE RADIOGRAPHIC FINDING IN THE CHEST. TECHNICAL DOCUMENTATION: JOB ID: [id number] [employer]- All Rights Reserved Reading location - IP/workstation name: [email or web address]
[2018-09-08 16:47] LABS: ARTERIAL BLOOD BASE EXCESS -0.2 mmol/L; ARTERIAL BLOOD FIO2 100%; ARTERIAL BLOOD HCO3 25.4 mmol/L (20-24); ARTERIAL BLOOD O2 SATURATION 99.3 % (94-98); ARTERIAL BLOOD PCO2 46.4 mmHg (35-45); ARTERIAL BLOOD PH 7.36 (7.35-7.45); ARTERIAL BLOOD PO2 194.7 mmHg (80-100); ARTERIAL BLOOD TOTAL CO2 26.9 mmol/L (21-25)
[2018-09-08 16:50] LABS: ALANINE AMINOTRANSFERASE 13 U/L (9-52); ALBUMIN 3.8 g/dL (3.5-5.0); ALKALINE PHOSPHATASE 59 U/L (38-126); ANION GAP 8 (5-19); ASPARTATE AMINO TRANSFERASE 15 U/L (14-36); BILIRUBIN,DIRECT 0.2 mg/dL (0.0-0.4); BILIRUBIN,TOTAL 0.2 mg/dL (0.2-1.3); BLOOD UREA NITROGEN 11 mg/dL (7-20); CALCIUM 8.8 mg/dL (8.4-10.2); CARBON DIOXIDE 25 mmol/L (22-30); CHLORIDE 106 mmol/L (98-107); GLUCOSE 97 mg/dL (75-110); POTASSIUM 3.9 mmol/L (3.6-5.0); SODIUM 139.1 mmol/L (137-145); TOTAL PROTEIN 6.7 g/dL (6.3-8.2)
[2018-09-08 17:02] LABS: NT PRO BNP 140 pg/mL (<125)
[2018-09-08 17:03] LABS: TROPONIN I < 0.012 ng/mL
[2018-09-08] MEDS ORDERED: DOCUSATE SODIUM 100 MG CAPSULE PO PRN (18:24)
[2018-09-08] MEDS ORDERED: FLUTICASONE NASAL SPRAY 50 MCG/SPRY 120 SPRAY/16 GM NASL PRN (18:24)
[2018-09-08] MEDS ORDERED: ZOLPIDEM TARTRATE 5 MG TABLET PO PRN (18:24)
[2018-09-08] MEDS ORDERED: HYDROXYZINE PAMOATE 25 MG CAPSULE PO PRN (18:24)
[2018-09-08] MEDS ORDERED: LEVALBUTEROL HCL NEB 1.25 MG/3 ML AMPUL NEB PRN (18:28)
--- NOTE | 2018-09-08 19:30 | PDOC H&P ---
History of Present Illness Admission Date/PCP: 09/08/18 17:34 ALLEGRA PICKETT DO Patient complains of: Increasing shortness of breath with productive cough History of Present Illness: ARABELLA SINGLETON is a 43 year old female who has been experiencing increasing shortness of breath with productive cough since Thursday. She was on a cruise with her family. Her daughter had strep throat on the cruise. The patient has a significant history for chronic obstructive pulmonary disease and asthma with recent hospitalization in April. She reports that no one has given her a specific cause for her respiratory illness. She has been to [facility]. She has not had a lung biopsy. She reports that she sent a sample to a genetic testing company and the results show that she is at risk for alpha-1 antitrypsin deficiency as well as celiac disease. There is a family history of alpha-1 antitrypsin disease. She does not report a confluence of respiratory infections on the cruise ship. She was coughing up yellow-green sputum. She had increased work of breathing requiring supplemental oxygen and was placed on BiPAP. She was referred to the hospitalist service for admission. Past Medical History Cardiac Medical History: Denies: Coronary Artery Disease, Myocardial Infarction, Hypertension, Pulmonary Embolism Pulmonary Medical History: Reports: Asthma, Bronchitis, Chronic Obstructive Pulmonary Disease (COPD) - INHALERS, Pneumonia Denies: Respiratory Failure, Sleep Apnea, Tuberculosis Neurological Medical History: Reports: Ischemic CVA Denies: Seizures Endocrine Medical History: Reports: Obesity Denies: Diabetes Mellitus Type 2, Hyperthyroidism, Hypothyroidism Renal/ Medical History: Denies: Chronic Kidney Disease Malignancy Medical History: Denies: Lung Cancer GI Medical History: Reports: Gastroesophageal Reflux Disease Musculoskeltal Medical History: Reports: Arthritis - RA Skin Medical History: Reports: Other - Intermittent rash. When she gets her Xolair injection it seems to help. Psychiatric Medical History: Reports: Depression - anxiety Traumatic Medical History: Reports: None Hematology: Denies: Anemia Infectious Medical History: Reports: None Past Surgical History Past Surgical History: Reports: Appendectomy, Section - x 3, Tubal Ligation, Other - Biopsy left neck mass benign, eye surgery, bronchoscopy at [facility] Denies: Pacemaker Social History Information Source: Patient, [facility], [facility] Records Lives with: Family Smoking Status: Never Smoker Frequency of Alcohol Use: Rare Hx Recreational Drug Use: No Drugs: None Hx Prescription Drug Abuse: No - Advance Directive Resuscitation Status: Full Code Surrogate healthcare decision maker:: Does not have a completed healthcare proxy document Family History Family History: COPD - Father was quartz miner in [place], CVA - Mother, DM - Her other , Other - Sisters with rheumatoid arthritis and cervical cancer each. Alpha-1 antitrypsin deficiency mother. Parental Family History Reviewed: Yes Children Family History Reviewed: Yes Sibling(s) Family History Reviewed.: Yes Medication/Allergy Home Medications: Acetaminophen [Tylenol 325 mg Tablet] 650 mg PO Q4HP PRN 04/23/18 Albuterol Sulfate [Proair HFA Inhalation Aerosol 8.5 gm MDI] 2 puff IH Q4HP PRN 04/23/18 Alprazolam [Xanax] 1 mg PO TIDP PRN 04/23/18 Brexpiprazole [Rexulti] 0.5 mg PO DAILY 04/23/18 Budesonide/Formoterol Fumarate [Symbicort HFA 160-4.5 mcg Inhaler 6 gm] 2 puff IH BID 04/23/18 Cetirizine HCl [Zyrtec 10 mg Tablet] 10 mg PO DAILY 04/23/18 Duloxetine HCl [Cymbalta] 60 mg PO BID 04/23/18 Fluticasone Propionate [Flonase Nasal [place] 50 Mcg/[place] 16 gm] 2 spray NASL DAILYP PRN 04/23/18 Guaifenesin [Mucinex] 600 mg PO Q12 04/23/18 Hydroxyzine Pamoate [Vistaril 25 mg Capsule] 25 mg PO TIDP PRN 04/23/18 Montelukast Sodium [Singulair 10 mg Tablet] 10 mg PO DAILY 04/23/18 Multivit with Calcium,Iron,Min [Women's Daily Formula] 1 tab PO DAILY 04/23/18 Omalizumab [Xolair Inj 150 mg Vial] 225 mg SQ Q14D 04/23/18 Pantoprazole Sodium [Protonix] 40 mg PO DAILY 04/23/18 Prednisone [Deltasone 10 mg Tablet] 10 mg PO DAILY 04/23/18 Tiotropium Sutter [Spiriva Respimat] 2 puff IH QAM 04/23/18 Zolpidem Tartrate [Ambien] 10 mg PO HSP PRN 04/23/18 Acetaminophen [Tylenol 325 mg Tablet] 650 mg PO Q4HP PRN tablet 04/27/18 Alprazolam [Xanax 0.5 mg Tablet] 1 mg PO TIDP PRN tablet 04/27/18 Brexpiprazole [Rexulti] 0.5 mg PO .DAILY 04/27/18 Budesonide/Formoterol Fumarate [Symbicort HFA 160-4.5 mcg Inhaler 6 gm] 2 puff IH BID inhaler 04/27/18 Cetirizine HCl [Zyrtec 10 mg Tablet] 10 mg PO DAILY tablet 04/27/18 Docusate Sodium [Dulcolax Stool Softener] 100 mg PO BIDP PRN #60 capsule 04/27/18 Duloxetine HCl [Cymbalta 30 mg Capsule.dr] 60 mg PO BID capsule.dr 04/27/18 Fluticasone Propionate [Flonase Nasal [place] 50 Mcg/[place] 16 gm] 2 spray NASL DAILY spray.pump 04/27/18 Guaifenesin [Mucinex Sr 600 mg Tablet.sa] 600 mg PO Q12 tablet.sa 04/27/18 Montelukast Sodium [Singulair 10 mg Tablet] 10 mg PO QHS tablet 04/27/18 Prednisone [Deltasone 20 mg Tablet] 60 mg PO DAILY #15 tablet 04/27/18 Vit/Dha [ Multi + Dha Capsule] 1 cap PO DAILY capsule 04/27/18 Tiotropium Sutter [Spiriva Respimat] 2 puff IH .QAM 04/27/18 Zolpidem Tartrate [Ambien 5 mg Tablet] 10 mg PO HSP PRN tablet 04/27/18 Allergies/Adverse Reactions: cefuroxime axetil [From Ceftin] Allergy (Intermediate, Verified 09/08/18 15:35) Hives voriconazole [From Vfend] Adverse Reaction (Mild, Verified 09/08/18 15:35) Skin Redness Review of Systems Constitutional: PRESENT: as per HPI Eyes: ABSENT: visual disturbances Ears: ABSENT: hearing changes Nose, Mouth, and Throat: PRESENT: sore throat. ABSENT: mouth pain Cardiovascular: ABSENT: chest pain, edema, orthropnea, palpitations Respiratory: PRESENT: cough, dyspnea, sputum - Yellow-green. ABSENT: hemoptysis Gastrointestinal: ABSENT: abdominal pain, bloating, constipation, diarrhea, nausea, vomiting Genitourinary: ABSENT: difficulty urinating, dysuria, hematuria Musculoskeletal: PRESENT: other - Chronic intermittent joint pain Integumentary: PRESENT: other - Complains of dry skin on legs at times. ABSENT: diaphoresis, lesions, pruritus, rash Neurological: ABSENT: abnormal gait, abnormal speech, confusion, memory loss, syncope, vertigo Psychiatric: ABSENT: anxiety, depression, hallucinations Endocrine: ABSENT: cold intolerance, heat intolerance, polydipsia, polyphagia, polyuria Hematologic/Lymphatic: ABSENT: easy bleeding, easy bruising Physical Exam Vital Signs: Temp Pulse Resp BP Pulse Ox 98.1 F 94 17 125/59 L 99 09/08/18 15:41 09/08/18 15:41 09/08/18 17:00 09/08/18 15:41 09/08/18 17:00 Intake & Output 09/07/18 09/08/18 09/09/18 06:59 06:59 06:59 Intake Total 200 Balance 200 Weight 80.4 kg General appearance: PRESENT: cooperative, mild distress - Mild to moderate distress., obese, well-developed Head exam: PRESENT: atraumatic, normocephalic Eye exam: PRESENT: conjunctiva pink, EOMI. ABSENT: conjunctival injection, scle ral icterus Ear exam: PRESENT: normal external ear exam Mouth exam: PRESENT: other - BiPAP mask in place Teeth exam: PRESENT: other - BiPAP mask in place Throat exam: PRESENT: other - BiPAP mask in place Neck exam: PRESENT: full ROM. ABSENT: carotid bruit, JVD, lymphadenopathy Respiratory exam: PRESENT: symmetrical, tachypnea, wheezes - Scattered expiratory wheezes. ABSENT: accessory muscle use, rales, retraction, rhonchi Cardiovascular exam: PRESENT: RRR, +S1, +S2 Pulses: PRESENT: normal radial pulses, +1 pedal pulses bilateral GI/Abdominal exam: PRESENT: normal bowel sounds, soft. ABSENT: distended, tenderness Rectal exam: PRESENT: deferred Gentrourinary exam: ABSENT: indwelling catheter Extremities exam: ABSENT: calf tenderness, pedal edema Musculoskeletal exam: PRESENT: ambulatory, normal inspection Neurological exam: PRESENT: alert, awake, oriented to person, oriented to place, oriented to time, oriented to situation, CN II-XII grossly intact Psychiatric exam: PRESENT: anxious, appropriate affect. ABSENT: agitated, depressed Focused psych exam: ABSENT: delusional, restlessness Skin exam: PRESENT: dry, normal color, warm Results Laboratory Results: 09/08/18 16:08 09/08/18 16:08 09/08/18 09/08/18 09/08/18 16:08 16:08 16:08 WBC 5.3 RBC 4.04 Hgb 9.4 L Hct 28.9 L MCV 72 L MCH 23.1 L MCHC 32.3 RDW 17.3 H Plt Count 346 Seg Neutrophils % 46.1 Lymphocytes % 37.5 Monocytes % 10.2 Eosinophils % 4.7 Basophils % 1.5 Absolute Neutrophils 2.5 Absolute Lymphocytes 2.0 Absolute Monocytes 0.5 Absolute Eosinophils 0.3 Absolute Basophils 0.1 Carbonic Acid 1.40 H HCO3/H2CO3 Ratio 18:1 ABG pH 7.36 ABG pCO2 46.4 H ABG pO2 194.7 H ABG HCO3 25.4 H ABG O2 Saturation 99.3 H ABG Base Excess -0.2 FiO2 100% Sodium 139.1 Potassium 3.9 Chloride 106 Carbon Dioxide 25 Anion Gap 8 BUN 11 Creatinine 0.65 Est GFR ( Amer) > 60 Est GFR (Non-Af Amer) > 60 Glucose 97 Calcium 8.8 Total Bilirubin 0.2 AST 15 ALT 13 Alkaline Phosphatase 59 Total Protein 6.7 Albumin 3.8 Serum HCG, Qual 09/08/18 16:08 WBC RBC Hgb Hct MCV MCH MCHC RDW Plt Count Seg Neutrophils % Lymphocytes % Monocytes % Eosinophils % Basophils % Absolute Neutrophils Absolute Lymphocytes Absolute Monocytes Absolute Eosinophils Absolute Basophils Carbonic Acid HCO3/H2CO3 Ratio ABG pH ABG pCO2 ABG pO2 ABG HCO3 ABG O2 Saturation ABG Base Excess FiO2 Sodium Potassium Chloride Carbon Dioxide Anion Gap BUN Creatinine Est GFR ( Amer) Est GFR (Non-Af Amer) Glucose Calcium Total Bilirubin AST ALT Alkaline Phosphatase Total Protein Albumin Serum HCG, Qual NEGATIVE 09/08/18 16:08 Troponin I < 0.012 NT-Pro-B Natriuret Pep 140 H Impressions: Chest X-Ray 09/08/18 15:46 IMPRESSION: NO ACUTE RADIOGRAPHIC FINDING IN THE CHEST. Assessment and Plan - Diagnosis (1) Acute respiratory failure with hypoxia Is this a current diagnosis for this admission?: Yes Plan: 09/08/2018-the patient had increased work of breathing with hypoxia on admission. After nebulizer treatments and IV steroids as well as IV magnesium she is improved but requiring BiPAP. She appreciates the BiPAP relieving some of the strain of breathing. She is quite talkative despite the BiPAP mask. She is oxygenating well and we will taper the FiO2 as tolerated. She denies any history of sleep apnea requiring CPAP or BiPAP at night. (2) Acute exacerbation of COPD with asthma Is this a current diagnosis for this admission?: Yes Plan: 09/08/2018-the patient will receive scheduled DuoNeb treatments as well as Xopenex as needed. I have also ordered budesonide nebulizer treatments and systemic steroids. She still has slight expiratory wheezes after the initial complement of treatments. She did report that a commercial genetic screening test revealed risk of alpha-1 antitrypsin deficiency as well as celiac disease. She does have family history of alpha-1 antitrypsin disease. (3) GERD (gastroesophageal reflux disease) Qualifiers: Esophagitis presence: without esophagitis Qualified Code(s): K21.9 - Gastro-esophageal reflux disease without esophagitis Is this a current diagnosis for this admission?: Yes Plan: 09/08/2018-the patient has productive cough but there is no evidence of pulmonary infiltrate. It is unlikely that there is any aspiration component. She will be on high-dose steroids and we will continue her proton pump inhibitor therapy at this time. (4) Rheumatoid arthritis Qualifiers: Rheumatoid arthritis location: multiple sites Is this a current diagnosis for this admission?: Yes Plan: 09/08/2018-the patient states that she has tried multiple DMARD medications without much success. She gets relief from nonsteroidal anti-inflammatory drugs. On high-dose steroids it is unlikely she will need any NSAIDs. We will continue to monitor for any exacerbation of joint pain. (5) Microcytic anemia Is this a current diagnosis for this admission?: Yes Plan: 09/08/2018-patient's hemoglobin is less than 10. Her MCV is less than 80. We will check iron studies as she may benefit from iron supplementation. With her chronic lung disease I would expect polycythemia and not anemia. - Time Time Spent with patient: 70 minutes Time Spent with patient: 35 or more minutes Medications reviewed and adjusted accordingly: Yes Anticipated discharge: Home - Inpatient Certification Based on my medical assessment, after consideration of the patient's comorbidities, presenting symptoms, or acuity I expect that the services needed warrant INPATIENT care.: Yes I certify that my determination is in accordance with my understanding of Medicare's requirements for reasonable and necessary INPATIENT services [42 CFR 412.3e].: Yes Medical Necessity: Need Close Monitoring Due to Risk of Patient Decompensation, Need For Continuous Telemetry Monitoring, Need for Nebulizer Therapy and Monitoring of Response, Risk of Complication if Not Cared For in Hospital
[2018-09-08] MEDS: BUDESONIDE NEB 0.5 MG/2 ML AMPUL NEB SCH (20:58)
[2018-09-08] MEDS: IPRATROPIUM/ALBUTEROL 0.5-2.5 MG/3 ML AMPUL NEB SCH (20:58)
[2018-09-08] MEDS: METHYLPREDNISOLONE INJ 125 MG/2 ML SDV IV SCH (21:42)
[2018-09-08] MEDS: GUAIFENESIN 600 MG TABLET.SA PO SCH (21:43)
[2018-09-08] MEDS: ALPRAZOLAM 0.5 MG TABLET PO PRN (21:43)
--- NOTE | 2018-09-08 21:54 | EKG REPORT ---
SEVERITY:- ABNORMAL ECG - SINUS RHYTHM NONSPECIFIC T ABNORMALITIES, DIFFUSE LEADS : Confirmed by: Kristin Fernandez MD 08-Sep-2018 21:53:00
[2018-09-08] MEDS ORDERED: (PENDING PHARMACY ID) (Guaifenesin [Mucinex] 600 MG) PO SCH (22:00)
[2018-09-08] MEDS ORDERED: METHYLPREDNISOLONE INJ 40 MG/1 ML SDV IV SCH (22:00)
[2018-09-09] MEDS: IPRATROPIUM/ALBUTEROL 0.5-2.5 MG/3 ML AMPUL NEB SCH ×4 (02:11→20:14)
[2018-09-09 05:04] LABS: ABSOLUTE LYMPHOCYTES (AUTO) 0.7 10^3/uL (0.5-4.7); ABSOLUTE MONOCYTES (AUTO) 0.1 10^3/uL (0.1-1.4); ABSOLUTE NEUT (AUTO) 4.1 10^3/uL (1.7-8.2); ABSOLUTE RETICS # 0.055 10^6/uL (0.028-0.122); BASOPHILS % (AUTO) 0.2 % (0-2); HEMATOCRIT 30.2 % (36.0-47.0); HEMOGLOBIN 9.8 g/dL (12.0-15.5); LYMPHOCYTES % (AUTO) 14.7 % (13-45); MEAN CORPUSCULAR HEMOGLOBIN 23.1 pg (27.0-33.4); MEAN CORPUSCULAR HGB CONC 32.5 g/dL (32.0-36.0); MEAN CORPUSCULAR VOLUME 71 fl (80-97); MONOCYTES % (AUTO) 1.6 % (3-13); PLATELET COUNT 328 10^3/uL (150-450); RED BLOOD COUNT 4.25 10^6/uL (3.72-5.28); RED CELL DISTRIBUTION WIDTH 16.8 % (11.5-14.0); SEGMENTED NEUTROPHILS % (AUTO) 83.5 % (42-78); TOTAL CELLS COUNTED % (AUTO) 100 %; WHITE BLOOD COUNT 4.9 10^3/uL (4.0-10.5)
[2018-09-09 05:28] LABS: ANION GAP 12 (5-19); BLOOD UREA NITROGEN 9 mg/dL (7-20); CALCIUM 9.5 mg/dL (8.4-10.2); CARBON DIOXIDE 22 mmol/L (22-30); CHLORIDE 106 mmol/L (98-107); GLUCOSE 173 mg/dL (75-110); POTASSIUM 3.9 mmol/L (3.6-5.0); SODIUM 139.6 mmol/L (137-145)
[2018-09-09] MEDS: METHYLPREDNISOLONE INJ 125 MG/2 ML SDV IV SCH ×3 (05:30→21:21)
[2018-09-09 06:05] LABS: FERRITIN 5.52 ng/mL (6.2-137.0)
[2018-09-09 06:35] LABS: FOLATE 5.34 ng/mL (>2.76)
[2018-09-09] MEDS: BUDESONIDE NEB 0.5 MG/2 ML AMPUL NEB SCH ×2 (07:47→20:14)
--- NOTE | 2018-09-09 08:29 | RADIOLOGY REPORT (SQ) ---
EXAM DESCRIPTION: CHEST SINGLE VIEW COMPLETED DATE/TIME: 09/09/2018 8:15 am REASON FOR STUDY: Acute hypoxic respiratory failure COMPARISON: AP chest 09/08/2018 EXAM PARAMETERS: NUMBER OF VIEWS: One view. TECHNIQUE: Single frontal radiographic view of the chest acquired. RADIATION DOSE: NA LIMITATIONS: None. FINDINGS: LUNGS AND PLEURA: No opacities, masses or pneumothorax. No pleural effusion. MEDIASTINUM AND HILAR STRUCTURES: No masses. Contour normal. HEART AND VASCULAR STRUCTURES: Heart normal in size. Normal vasculature. BONES: No acute findings. HARDWARE: None in the chest. OTHER: No other significant finding. IMPRESSION: NO ACUTE RADIOGRAPHIC FINDING IN THE CHEST. TECHNICAL DOCUMENTATION: JOB ID: [id number] [employer]- All Rights Reserved Reading location - IP/workstation name: [email or web address]
[2018-09-09] MEDS ORDERED: (PENDING PHARMACY ID) (Brexpiprazole [Rexulti] 0.5 MG) PO SCH (10:00)
[2018-09-09] MEDS: CETIRIZINE 10 MG TABLET PO SCH (10:08)
[2018-09-09] MEDS: DULOXETINE HCL 30 MG CAPSULE.DR PO SCH ×2 (10:08→18:04)
[2018-09-09] MEDS: GUAIFENESIN 600 MG TABLET.SA PO SCH ×2 (10:08→21:21)
[2018-09-09] MEDS: PANTOPRAZOLE SODIUM 40 MG TABLET.DR PO SCH (10:08)
[2018-09-09] MEDS: ENOXAPARIN SODIUM INJ 40 MG/0.4 ML DISP.SYRIN SUBCUT SCH (10:10)
[2018-09-09] MEDS ORDERED: ONDANSETRON HCL INJ/PF 4 MG/2 ML SDV ONE (12:56)
[2018-09-09] MEDS: GUAIFENESIN/CODEINE PHOS 100-10 MG/ 5 ML UDC PO PRN (13:00)
[2018-09-09] MEDS: BENZOCAINE/MENTHOL SORE THROAT LOZENGE BUCCAL PRN ×2 (13:59→18:04)
[2018-09-09] MEDS ORDERED: ONDANSETRON 4 MG TAB.RAPDIS PO PRN (14:21)
--- NOTE | 2018-09-09 17:06 | PDOC PROGRESS REPORT ---
Subjective Progress Note for:: 09/09/18 Subjective:: 43 y.o. F with a PMH of asthma, bronchitis, CVA, rheumatoid arthritis, depression, anxiety and obesity. The patient was admitted to hospitalist service for acute hypoxic respiratory failure requiring BiPAP. The patient was eventually weaned from BiPAP to nasal cannula and now on room air at rest. She still requires supplemental oxygen via nasal cannula while ambulating. Patient was seen this morning on rounds. She is resting in bed. She complains of a persistent dry cough. She states that she coughs to the point of incontinence and sometimes vomiting. Wheezing is auscultated in the lower lung bobby. No central or peripheral cyanosis. S1-S2. No evidence of peripheral edema. Pulses are palpable in all extremities. The patient is extremely distraught because she lost her wedding ring while in the emergency department. I am having a difficult time conducting the interview/assessment because the patient is unable to focus on anything but the fact that her ring is lost. Housekeeping, security and emergency department staff have already been notified about her missing wedding ring. Patient is currently on high dose scheduled Solu-Medrol. Plan to increase frequency of nebulizer treatments. Initiate Robitussin-AC for persistent cough. Reason For Visit: ACUTE HYPOXIC RESPIRATORY FAILURE Physical Exam Vital Signs: Temp Pulse Resp BP Pulse Ox 97.8 F 117 H 14 98/40 L 100 09/09/18 11:17 09/09/18 14:37 09/09/18 14:37 09/09/18 14:37 09/09/18 16:24 Intake & Output 09/08/18 09/09/18 09/10/18 06:59 06:59 06:59 Intake Total 200 Balance 200 Weight 88.1 kg General appearance: PRESENT: obese Eye exam: PRESENT: conjunctiva pink, PERRLA Mouth exam: PRESENT: moist, tongue midline Respiratory exam: PRESENT: symmetrical, unlabored, wheezes, other - Persistent dry hacking cough Cardiovascular exam: PRESENT: RRR Pulses: PRESENT: normal radial pulses, normal dorsalis pedis pul GI/Abdominal exam: PRESENT: normal bowel sounds, soft. ABSENT: distended, tenderness Rectal exam: PRESENT: deferred Extremities exam: PRESENT: full ROM. ABSENT: joint swelling Musculoskeletal exam: PRESENT: ambulatory, full ROM, normal inspection Neurological exam: PRESENT: alert, awake, oriented to person, oriented to place, oriented to time, oriented to situation Psychiatric exam: PRESENT: appropriate affect Skin exam: PRESENT: normal color Results Laboratory Results: 09/09/18 04:20 09/09/18 04:20 09/08/18 09/08/18 09/08/18 16:08 16:08 16:08 WBC RBC Hgb Hct MCV MCH MCHC RDW Plt Count Seg Neutrophils % Lymphocytes % Monocytes % Eosinophils % Basophils % Absolute Neutrophils Absolute Lymphocytes Absolute Monocytes Absolute Eosinophils Absolute Basophils Retic Count (auto) Absolute Retic Carbonic Acid 1.40 H HCO3/H2CO3 Ratio 18:1 ABG pH 7.36 ABG pCO2 46.4 H ABG pO2 194.7 H ABG HCO3 25.4 H ABG O2 Saturation 99.3 H ABG Base Excess -0.2 FiO2 100% Sodium 139.1 Potassium 3.9 Chloride 106 Carbon Dioxide 25 Anion Gap 8 BUN 11 Creatinine 0.65 Est GFR ( Amer) > 60 Est GFR (Non-Af Amer) > 60 Glucose 97 Calcium 8.8 Magnesium Iron TIBC % Saturation Ferritin Total Bilirubin 0.2 AST 15 ALT 13 Alkaline Phosphatase 59 Total Protein 6.7 Albumin 3.8 Vitamin B12 Folate Serum HCG, Qual NEGATIVE 09/09/18 09/09/18 04:20 04:20 WBC 4.9 RBC 4.25 Hgb 9.8 L Hct 30.2 L MCV 71 L MCH 23.1 L MCHC 32.5 RDW 16.8 H Plt Count 328 Seg Neutrophils % 83.5 H Lymphocytes % 14.7 Monocytes % 1.6 L Eosinophils % 0.0 Basophils % 0.2 Absolute Neutrophils 4.1 Absolute Lymphocytes 0.7 Absolute Monocytes 0.1 Absolute Eosinophils 0.0 Absolute Basophils 0.0 Retic Count (auto) 1.30 Absolute Retic 0.055 Carbonic Acid HCO3/H2CO3 Ratio ABG pH ABG pCO2 ABG pO2 ABG HCO3 ABG O2 Saturation ABG Base Excess FiO2 Sodium 139.6 Potassium 3.9 Chloride 106 Carbon Dioxide 22 Anion Gap 12 BUN 9 Creatinine 0.64 Est GFR ( Amer) > 60 Est GFR (Non-Af Amer) > 60 Glucose 173 H Calcium 9.5 Magnesium 2.2 Iron 18.0 L TIBC 441 % Saturation 4 Ferritin 5.52 L Total Bilirubin AST ALT Alkaline Phosphatase Total Protein Albumin Vitamin B12 252.0 Folate 5.34 Serum HCG, Qual 09/08/18 16:08 Troponin I < 0.012 NT-Pro-B Natriuret Pep 140 H Impressions: Chest X-Ray 09/09/18 06:00 IMPRESSION: NO ACUTE RADIOGRAPHIC FINDING IN THE CHEST. Status: Imported from PACS Assessment and Plan - Diagnosis (1) Acute exacerbation of COPD with asthma Is this a current diagnosis for this admission?: Yes Plan: URI versus alpha-1 antitrypsin deficiency Family history of alpha-1 antitrypsin disease and celiac disease Will likely require outpatient pulmonary consult CXR completely benign Scheduled and as needed nebulizer treatments Scheduled IV Solu-Medrol Supplemental oxygen via nasal cannula for SPO2 >88% Robitussin-AC for persistent dry cough (2) Acute respiratory failure with hypoxia Is this a current diagnosis for this admission?: Yes Plan: Requiring BiPAP Dyspnea and hypoxia upon admission initially treated with nebulizers, steroids, IV magnesium, BiPAP Today the patient has weaned from BiPAP to nasal cannula History of sleep apnea requiring CPAP at night (3) GERD (gastroesophageal reflux disease) Qualifiers: Esophagitis presence: without esophagitis Qualified Code(s): K21.9 - Gastro-esophageal reflux disease without esophagitis Is this a current diagnosis for this admission?: Yes Plan: PMH GERD Continue home dose PPI (4) Rheumatoid arthritis Qualifiers: Rheumatoid arthritis location: multiple sites Is this a current diagnosis for this admission?: Yes Plan: Currently on high-dose steroids Monitor for exacerbation of joint pain (5) Vomiting Is this a current diagnosis for this admission?: Yes Plan: Stemming from severe coughing. Patient coughs to the point of vomiting Robitussin-AC order for cough As needed Zofran ordered for nausea (6) Microcytic anemia Is this a current diagnosis for this admission?: Yes Plan: Iron deficiency anemia As evidenced by low serum iron, low serum ferritin, low hemoglobin and low MCV Unclear etiology at this time, no evidence of blood loss, will require further investigation - Time Time Spent with patient: 15-24 minutes Medications reviewed and adjusted accordingly: Yes Anticipated discharge: Home Within: within 72 hours - Inpatient Certification Based on my medical assessment, after consideration of the patient's comorbidities, presenting symptoms, or acuity I expect that the services needed warrant INPATIENT care.: Yes I certify that my determination is in accordance with my understanding of Medicare's requirements for reasonable and necessary INPATIENT services [42 CFR 412.3e].: Yes Medical Necessity: Need For Continuous Telemetry Monitoring, Need for Nebulizer Therapy and Monitoring of Response, Risk of Complication if Not Cared For in Hospital
[2018-09-09] MEDS: ALPRAZOLAM 0.5 MG TABLET PO PRN (21:21)
[2018-09-10 05:10] LABS: HEMATOCRIT 27.2 % (36.0-47.0); HEMOGLOBIN 8.8 g/dL (12.0-15.5); MEAN CORPUSCULAR HEMOGLOBIN 23.1 pg (27.0-33.4); MEAN CORPUSCULAR HGB CONC 32.5 g/dL (32.0-36.0); MEAN CORPUSCULAR VOLUME 71 fl (80-97); PLATELET COUNT 343 10^3/uL (150-450); RED BLOOD COUNT 3.83 10^6/uL (3.72-5.28); RED CELL DISTRIBUTION WIDTH 17.2 % (11.5-14.0)
[2018-09-10 05:29] LABS: ALANINE AMINOTRANSFERASE 18 U/L (9-52); ALBUMIN 3.8 g/dL (3.5-5.0); ALKALINE PHOSPHATASE 59 U/L (38-126); ANION GAP 9 (5-19); ASPARTATE AMINO TRANSFERASE 12 U/L (14-36); BILIRUBIN,DIRECT 0.2 mg/dL (0.0-0.4); BILIRUBIN,TOTAL 0.2 mg/dL (0.2-1.3); BLOOD UREA NITROGEN 12 mg/dL (7-20); CALCIUM 8.7 mg/dL (8.4-10.2); CARBON DIOXIDE 27 mmol/L (22-30); CHLORIDE 102 mmol/L (98-107); GLUCOSE 130 mg/dL (75-110); POTASSIUM 4.4 mmol/L (3.6-5.0); SODIUM 137.9 mmol/L (137-145); TOTAL PROTEIN 6.8 g/dL (6.3-8.2)
[2018-09-10 06:20] LABS: WHITE BLOOD COUNT 11.1 10^3/uL (4.0-10.5)
[2018-09-10] MEDS: METHYLPREDNISOLONE INJ 125 MG/2 ML SDV IV SCH ×3 (06:40→21:29)
[2018-09-10] MEDS: GUAIFENESIN/CODEINE PHOS 100-10 MG/ 5 ML UDC PO PRN ×2 (06:47→17:11)
[2018-09-10] MEDS: BUDESONIDE NEB 0.5 MG/2 ML AMPUL NEB SCH ×2 (08:01→19:45)
[2018-09-10] MEDS: IPRATROPIUM/ALBUTEROL 0.5-2.5 MG/3 ML AMPUL NEB SCH ×4 (08:01→19:44)
[2018-09-10] MEDS ORDERED: POLYETHYLENE GLYCOL 3350 POWDER 17 GM/1 PACKET PO PRN (08:42)
[2018-09-10] MEDS ORDERED: MAGNESIUM HYDROXIDE SUSP 30 ML UDCUP PO PRN (08:43)
[2018-09-10] MEDS: SENNOSIDES/DOCUSATE 8.6-50 MG 1 EACH TABLET PO SCH ×2 (09:40→17:47)
[2018-09-10] MEDS: DULOXETINE HCL 30 MG CAPSULE.DR PO SCH ×2 (09:40→17:47)
[2018-09-10] MEDS: PANTOPRAZOLE SODIUM 40 MG TABLET.DR PO SCH (09:40)
[2018-09-10] MEDS: CETIRIZINE 10 MG TABLET PO SCH (09:40)
[2018-09-10] MEDS: ENOXAPARIN SODIUM INJ 40 MG/0.4 ML DISP.SYRIN SUBCUT SCH (09:41)
[2018-09-10] MEDS: ALPRAZOLAM 0.5 MG TABLET PO PRN ×2 (09:44→21:33)
--- NOTE | 2018-09-10 13:08 | RADIOLOGY REPORT (SQ) ---
EXAM DESCRIPTION: CT CHEST WITHOUT COMPLETED DATE/TIME: 09/10/2018 12:30 pm REASON FOR STUDY: dyspnea. hypoxia. COMPARISON: Chest films 09/09/2018, 09/08/2018, 04/23/2018 CT angio chest 06/17/2015 TECHNIQUE: CT scan performed of the chest without intravenous contrast. Images reviewed with lung, soft tissue and bone windows. Reconstructed coronal and sagittal MPR images reviewed. All images st ored on PACS. All CT scanners at this facility use dose modulation, iterative reconstruction, and/or weight based d osing when appropriate to reduce radiation dose to as low as reasonably achievable (ALARA). [facility]: Dose Right [facility]: CareDose [facility]: Dose Right [facility]: Teradose 4D [facility]: [employer] RADIATION DOSE: CT Rad equipment meets quality standard of care and radiation dose reduction techniq ues were employed. CTDIvol: 10.0 mGy. DLP: 342 mGy-cm. mGy. LIMITATIONS: No technical limitations. FINDINGS: LUNGS AND PLEURA: Minimal airspace disease is present in the right lower lobe on axial jessie ges [id number]. Lungs are otherwise well inflated clear. No pleural effusion. No pneumothorax. HILAR AND MEDIASTINAL STRUCTURES: No identified masses or abnormal nodes. No obvious aneurysm. HEART AND VASCULAR STRUCTURES: No aneurysm. No pericardial effusion. UPPER ABDOMEN: No significant findings. Limited exam. THYROID AND OTHER SOFT TISSUES: No masses. No adenopathy. BONES: No significant finding. HARDWARE: None in the chest. OTHER: No other significant findings. IMPRESSION: Minimal right lower lobe airspace disease. Otherwise unremarkable study TECHNICAL DOCUMENTATION: JOB ID: [id number] Quality ID # [id number]: Final reports with documentation of one or more dose reduction techniques (e.g., Au tomated exposure control, adjustment of the mA and/or kV according to patient size, use of iterative reconstruction technique) 2010 [employer]- All Rights Reserved Reading location - IP/workstation name: [email or web address]
--- NOTE | 2018-09-10 20:42 | PDOC PROGRESS REPORT ---
Subjective Progress Note for:: 09/10/18 Subjective:: 43 y.o. F with a PMH of asthma, bronchitis, CVA, rheumatoid arthritis, depression, anxiety and obesity. The patient was admitted to hospitalist service for acute hypoxic respiratory failure requiring BiPAP. The patient was eventually weaned from BiPAP to nasal cannula and now on room air at rest. She still requires supplemental oxygen via nasal cannula while ambulating. Patient was seen this morning on rounds. She is resting in bed. Faint wheezing is auscultated in the lower lung bobby. No central or peripheral cyanosis. S1-S2. No evidence of peripheral edema. Pulses are palpable in all extremities. Patient reports family history of alpha-1 antitrypsin deficiency. May need lung biopsy and pulmonary follow up. 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 Reason For Visit: ACUTE HYPOXIC RESPIRATORY FAILURE Physical Exam Vital Signs: Temp Pulse Resp BP Pulse Ox 98.7 F 97 20 106/43 L 95 09/10/18 16:19 09/10/18 19:45 09/10/18 19:45 09/10/18 16:19 09/10/18 19:45 Intake & Output 09/09/18 09/10/18 09/11/18 06:59 06:59 06:59 Intake Total 200 625 Balance 200 625 Weight 88.1 kg General appearance: PRESENT: obese Head exam: PRESENT: atraumatic Eye exam: PRESENT: conjunctiva pink, PERRLA Mouth exam: PRESENT: moist Respiratory exam: PRESENT: symmetrical, unlabored, wheezes Cardiovascular exam: PRESENT: RRR Pulses: PRESENT: normal radial pulses, normal dorsalis pedis pul Vascular exam: PRESENT: normal capillary refill GI/Abdominal exam: PRESENT: soft. ABSENT: distended, tenderness Rectal exam: PRESENT: deferred Extremities exam: PRESENT: full ROM Musculoskeletal exam: PRESENT: ambulatory, full ROM, normal inspection Neurological exam: PRESENT: alert, awake, oriented to person, oriented to place, oriented to time, oriented to situation Psychiatric exam: PRESENT: appropriate affect Skin exam: PRESENT: dry, intact, normal color Results Laboratory Results: 09/10/18 03:55 09/10/18 03:55 09/10/18 09/10/18 03:55 03:55 WBC 11.1 H D RBC 3.83 Hgb 8.8 L Hct 27.2 L MCV 71 L MCH 23.1 L MCHC 32.5 RDW 17.2 H Plt Count 343 Sodium 137.9 Potassium 4.4 Chloride 102 Carbon Dioxide 27 Anion Gap 9 BUN 12 Creatinine 0.63 Est GFR ( Amer) > 60 Est GFR (Non-Af Amer) > 60 Glucose 130 H Calcium 8.7 Total Bilirubin 0.2 AST 12 L ALT 18 Alkaline Phosphatase 59 Total Protein 6.8 Albumin 3.8 09/08/18 16:08 Troponin I < 0.012 NT-Pro-B Natriuret Pep 140 H Impressions: Chest X-Ray 09/09/18 06:00 IMPRESSION: NO ACUTE RADIOGRAPHIC FINDING IN THE CHEST. Chest CT 09/10/18 08:40 IMPRESSION: Minimal right lower lobe airspace disease. Otherwise unremarkable study Status: Imported from PACS Assessment and Plan - Diagnosis (1) Acute exacerbation of COPD with asthma Is this a current diagnosis for this admission?: Yes Plan: URI versus alpha-1 antitrypsin deficiency Family history of alpha-1 antitrypsin disease and celiac disease Will likely require outpatient pulmonary consult CXR completely benign CT chest benign Scheduled and as needed nebulizer treatments Scheduled IV Solu-Medrol Supplemental oxygen via nasal cannula for SPO2 >88% Robitussin-AC for persistent dry cough (2) Acute respiratory failure with hypoxia Is this a current diagnosis for this admission?: Yes Plan: Requiring BiPAP Dyspnea and hypoxia upon admission initially treated with nebulizers, steroids, IV magnesium, BiPAP Weaned from BiPAP to nasal cannula History of sleep apnea requiring CPAP at night (3) GERD (gastroesophageal reflux disease) Qualifiers: Esophagitis presence: without esophagitis Qualified Code(s): K21.9 - Gastro-esophageal reflux disease without esophagitis Is this a current diagnosis for this admission?: Yes Plan: H GERD Continue home dose PPI (4) Rheumatoid arthritis Qualifiers: Rheumatoid arthritis location: multiple sites Is this a current diagnosis for this admission?: Yes Plan: Currently on high-dose steroids Monitor for exacerbation of joint pain (5) Vomiting Is this a current diagnosis for this admission?: Yes Plan: Stemming from severe coughing. Patient coughs to the point of vomiting Robitussin-AC order for cough As needed Zofran ordered for nausea (6) Microcytic anemia Is this a current diagnosis for this admission?: Yes Plan: Iron deficiency anemia As evidenced by low serum iron, low serum ferritin, low hemoglobin and low MCV Unclear etiology at this time, no evidence of blood loss, will require further investigation - Time Time Spent with patient: 15-24 minutes Medications reviewed and adjusted accordingly: Yes Anticipated discharge: Home Within: within 48 hours - Inpatient Certification Based on my medical assessment, after consideration of the patient's comorbidities, presenting symptoms, or acuity I expect that the services needed warrant INPATIENT care.: Yes I certify that my determination is in accordance with my understanding of Medicare's requirements for reasonable and necessary INPATIENT services [42 CFR 412.3e].: Yes Medical Necessity: Need For Continuous Telemetry Monitoring, Need for Nebulizer Therapy and Monitoring of Response, Risk of Complication if Not Cared For in Hospital
[2018-09-10] MEDS: MONTELUKAST SODIUM 10 MG TABLET PO SCH (21:29)
[2018-09-11 03:50] LABS: HEMATOCRIT 27.3 % (36.0-47.0); HEMOGLOBIN 8.8 g/dL (12.0-15.5); MEAN CORPUSCULAR HEMOGLOBIN 23.1 pg (27.0-33.4); MEAN CORPUSCULAR HGB CONC 32.4 g/dL (32.0-36.0); MEAN CORPUSCULAR VOLUME 71 fl (80-97); PLATELET COUNT 350 10^3/uL (150-450); RED BLOOD COUNT 3.83 10^6/uL (3.72-5.28); RED CELL DISTRIBUTION WIDTH 17.2 % (11.5-14.0)
[2018-09-11 04:09] LABS: ALANINE AMINOTRANSFERASE 17 U/L (9-52); ALBUMIN 3.7 g/dL (3.5-5.0); ALKALINE PHOSPHATASE 59 U/L (38-126); ANION GAP 11 (5-19); ASPARTATE AMINO TRANSFERASE 11 U/L (14-36); BILIRUBIN,DIRECT 0.2 mg/dL (0.0-0.4); BILIRUBIN,TOTAL 0.2 mg/dL (0.2-1.3); BLOOD UREA NITROGEN 17 mg/dL (7-20); CALCIUM 8.3 mg/dL (8.4-10.2); CARBON DIOXIDE 28 mmol/L (22-30); CHLORIDE 100 mmol/L (98-107); GLUCOSE 138 mg/dL (75-110); PHOSPHORUS 4.2 mg/dL (2.5-4.5); POTASSIUM 4.2 mmol/L (3.6-5.0); SODIUM 138.9 mmol/L (137-145); TOTAL PROTEIN 6.5 g/dL (6.3-8.2)
[2018-09-11] MEDS: METHYLPREDNISOLONE INJ 125 MG/2 ML SDV IV SCH ×3 (05:39→21:20)
[2018-09-11] MEDS: BUDESONIDE NEB 0.5 MG/2 ML AMPUL NEB SCH ×2 (07:58→19:33)
[2018-09-11] MEDS: IPRATROPIUM/ALBUTEROL 0.5-2.5 MG/3 ML AMPUL NEB SCH ×4 (07:58→19:33)
[2018-09-11] MEDS: PANTOPRAZOLE SODIUM 40 MG TABLET.DR PO SCH (10:17)
[2018-09-11] MEDS: DULOXETINE HCL 30 MG CAPSULE.DR PO SCH ×2 (10:18→18:02)
[2018-09-11] MEDS: CETIRIZINE 10 MG TABLET PO SCH (10:18)
[2018-09-11] MEDS: SENNOSIDES/DOCUSATE 8.6-50 MG 1 EACH TABLET PO SCH ×2 (10:18→18:02)
[2018-09-11] MEDS: ENOXAPARIN SODIUM INJ 40 MG/0.4 ML DISP.SYRIN SUBCUT SCH (10:18)
[2018-09-11] MEDS ORDERED: SALMETEROL XINAFOATE DISKUS 50 MCG/1 DOSE 28 DOSE IH SCH (12:30)
[2018-09-11] MEDS: TIOTROPIUM BROMIDE DPI 5 CAP/KIT (18 MCG/CAP) IH SCH (14:00)
--- NOTE | 2018-09-11 16:12 | PDOC PROGRESS REPORT ---
Subjective Progress Note for:: 09/11/18 Subjective:: 43 y.o. F with a PMH of asthma, bronchitis, CVA, rheumatoid arthritis, depression, anxiety and obesity. The patient was admitted to hospitalist service for acute hypoxic respiratory failure requiring BiPAP. The patient was eventually weaned from BiPAP to nasal cannula and now on room air at rest. She still requires supplemental oxygen via nasal cannula while ambulating. Patient was seen this morning on rounds. She is resting in bed. Faint wheezing is auscultated in the lower lung bobby. No central or peripheral cyanosis. S1-S2. No evidence of peripheral edema. Pulses are palpable in all extremities. Attempted to ambulate today without supplemental oxygen and patient's heart rate increased to 150, SPO2 dropped to 91%. Unfortunately the patient was only able to ambulate 3 steps before needing to go back to bed. Initiated Spiriva, Serevent is unavailable at [facility] right now. Continue frequent nebulizer treatments and IV steroids Reason For Visit: ACUTE HYPOXIC RESPIRATORY FAILURE Physical Exam Vital Signs: Temp Pulse Resp BP Pulse Ox 97.8 F 85 18 121/61 99 09/11/18 11:19 09/11/18 12:03 09/11/18 12:03 09/11/18 11:19 09/11/18 12:03 Intake & Output 09/10/18 09/11/18 09/12/18 06:59 06:59 06:59 Intake Total 965 Output Total 0 Balance 965 Weight 88 kg General appearance: PRESENT: no acute distress, well-developed, well-nourished Head exam: PRESENT: atraumatic, normocephalic Eye exam: PRESENT: conjunctiva pink, EOMI, PERRLA. ABSENT: scleral icterus Ear exam: PRESENT: normal external ear exam Mouth exam: PRESENT: moist, tongue midline Neck exam: PRESENT: full ROM. ABSENT: carotid bruit, JVD, lymphadenopathy, thyromegaly Respiratory exam: PRESENT: symmetrical, wheezes. ABSENT: rales, rhonchi Cardiovascular exam: PRESENT: RRR. ABSENT: diastolic murmur, rubs, systolic murmur Pulses: PRESENT: normal radial pulses, normal dorsalis pedis pul Vascular exam: PRESENT: normal capillary refill GI/Abdominal exam: PRESENT: normal bowel sounds, soft. ABSENT: distended, guarding, mass, organolmegaly, rebound, tenderness Rectal exam: PRESENT: deferred Extremities exam: PRESENT: full ROM. ABSENT: calf tenderness, clubbing, pedal edema Neurological exam: PRESENT: alert, awake, oriented to person, oriented to place, oriented to time, oriented to situation Psychiatric exam: PRESENT: appropriate affect, normal mood Skin exam: PRESENT: dry, intact, warm. ABSENT: cyanosis, rash Results Laboratory Results: 09/11/18 03:10 09/11/18 03:10 09/11/18 09/11/18 03:10 03:10 WBC 11.0 H RBC 3.83 Hgb 8.8 L Hct 27.3 L MCV 71 L MCH 23.1 L MCHC 32.4 RDW 17.2 H Plt Count 350 Sodium 138.9 Potassium 4.2 Chloride 100 Carbon Dioxide 28 Anion Gap 11 BUN 17 Creatinine 0.60 Est GFR ( Amer) > 60 Est GFR (Non-Af Amer) > 60 Glucose 138 H Calcium 8.3 L Phosphorus 4.2 Magnesium 2.4 H Total Bilirubin 0.2 AST 11 L ALT 17 Alkaline Phosphatase 59 Total Protein 6.5 Albumin 3.7 09/08/18 16:08 Troponin I < 0.012 NT-Pro-B Natriuret Pep 140 H Impressions: Chest X-Ray 09/09/18 06:00 IMPRESSION: NO ACUTE RADIOGRAPHIC FINDING IN THE CHEST. Chest CT 09/10/18 08:40 IMPRESSION: Minimal right lower lobe airspace disease. Otherwise unremarkable study Status: Imported from PACS Assessment and Plan - Diagnosis (1) Acute exacerbation of COPD with asthma Is this a current diagnosis for this admission?: Yes Plan: URI versus alpha-1 antitrypsin deficiency versus severe asthma exacerbation Family history of alpha-1 antitrypsin disease and celiac disease Will likely require outpatient pulmonary consult CXR completely benign CT chest benign Scheduled and as needed nebulizer treatments Scheduled IV Solu-Medrol Supplemental oxygen via nasal cannula for SPO2 >88% Robitussin-AC for persistent dry cough Scheduled spiriva, unfortunately Serevent is unavailable right now at [facility] pharmacy (2) Acute respiratory failure with hypoxia Is this a current diagnosis for this admission?: Yes Plan: Requiring BiPAP Dyspnea and hypoxia upon admission initially treated with nebulizers, steroids, IV magnesium, BiPAP Weaned from BiPAP to nasal cannula History of sleep apnea requiring CPAP at night (3) GERD (gastroesophageal reflux disease) Qualifiers: Esophagitis presence: without esophagitis Qualified Code(s): K21.9 - Gastro-esophageal reflux disease without esophagitis Is this a current diagnosis for this admission?: Yes Plan: PMH GERD Continue home dose PPI (4) Rheumatoid arthritis Qualifiers: Rheumatoid arthritis location: multiple sites Is this a current diagnosis for this admission?: Yes Plan: Currently on high-dose steroids Monitor for exacerbation of joint pain (5) Vomiting Is this a current diagnosis for this admission?: Yes Plan: Stemming from severe coughing. Patient coughs to the point of vomiting Robitussin-AC order for cough As needed Zofran ordered for nausea (6) Microcytic anemia Is this a current diagnosis for this admission?: Yes Plan: Iron deficiency anemia As evidenced by low serum iron, low serum ferritin, low hemoglobin and low MCV Unclear etiology at this time, no evidence of blood loss, will require further investigation - Time Time Spent with patient: 15-24 minutes Anticipated discharge: Home Within: within 48 hours - Inpatient Certification Based on my medical assessment, after consideration of the patient's comorbidities, presenting symptoms, or acuity I expect that the services needed warrant INPATIENT care.: Yes I certify that my determination is in accordance with my understanding of Medicare's requirements for reasonable and necessary INPATIENT services [42 CFR 412.3e].: Yes Medical Necessity: Need for Nebulizer Therapy and Monitoring of Response
[2018-09-11] MEDS: ALPRAZOLAM 0.5 MG TABLET PO PRN (21:19)
[2018-09-11] MEDS: MONTELUKAST SODIUM 10 MG TABLET PO SCH (21:20)
[2018-09-12] MEDS: METHYLPREDNISOLONE INJ 125 MG/2 ML SDV IV SCH ×3 (06:01→21:14)
[2018-09-12] MEDS: BUDESONIDE NEB 0.5 MG/2 ML AMPUL NEB SCH ×2 (09:52→20:10)
[2018-09-12] MEDS: IPRATROPIUM/ALBUTEROL 0.5-2.5 MG/3 ML AMPUL NEB SCH ×4 (09:52→20:10)
[2018-09-12] MEDS ORDERED: NORMAL SALINE 1000 ML 1,000 ML IV ONE ×2 (10:30→10:31)
[2018-09-12] MEDS: DULOXETINE HCL 30 MG CAPSULE.DR PO SCH ×2 (10:30→18:24)
[2018-09-12] MEDS: SENNOSIDES/DOCUSATE 8.6-50 MG 1 EACH TABLET PO SCH ×2 (10:30→18:24)
[2018-09-12] MEDS: PANTOPRAZOLE SODIUM 40 MG TABLET.DR PO SCH (10:30)
[2018-09-12] MEDS: CETIRIZINE 10 MG TABLET PO SCH (10:31)
[2018-09-12] MEDS: TIOTROPIUM BROMIDE DPI 5 CAP/KIT (18 MCG/CAP) IH SCH (10:31)
[2018-09-12] MEDS: ENOXAPARIN SODIUM INJ 40 MG/0.4 ML DISP.SYRIN SUBCUT SCH (10:31)
[2018-09-12] MEDS: AMOXICILLIN TRIHYDRATE 500 MG CAPSULE PO SCH ×3 (11:30→22:56)
[2018-09-12] MEDS: ALPRAZOLAM 0.5 MG TABLET PO PRN (18:24)
--- NOTE | 2018-09-12 18:52 | PDOC PROGRESS REPORT ---
Subjective Progress Note for:: 09/12/18 Subjective:: 43 y.o. F with a PMH of asthma, bronchitis, CVA, rheumatoid arthritis, depression, anxiety and obesity. The patient was admitted to hospitalist service for acute hypoxic respiratory failure requiring BiPAP. The patient was eventually weaned from BiPAP to nasal cannula and now on room air at rest. She still requires supplemental oxygen via nasal cannula while ambulating. Sputum cultures (+) Haemophilus influenzae. Plan to start Amoxicillin PO for 7 day treatment regimen. Attempted to ambulate today without supplemental oxygen and patient's heart rate increased to 115, SPO2 dropped to 91%. Patient was able to ambulate 75 feet, expressed a great deal of fatigue after ambulating. Continue current treatment regimen, will likely discharge home in 24 hours. Reason For Visit: ACUTE HYPOXIC RESPIRATORY FAILURE Physical Exam Vital Signs: Temp Pulse Resp BP Pulse Ox 97.7 F 88 18 127/63 H 100 09/12/18 15:05 09/12/18 15:32 09/12/18 15:32 09/12/18 15:05 09/12/18 15:32 Intake & Output 09/11/18 09/12/18 09/13/18 06:59 06:59 06:59 Intake Total 294 446 3439 Output Total 0 2 Balance 697 996 9644 Weight 88 kg 88.6 kg General appearance: PRESENT: no acute distress, obese Head exam: PRESENT: atraumatic, normocephalic Eye exam: PRESENT: conjunctiva pink, EOMI, PERRLA. ABSENT: scleral icterus Ear exam: PRESENT: normal external ear exam Mouth exam: PRESENT: moist, tongue midline Neck exam: ABSENT: carotid bruit, JVD, lymphadenopathy, thyromegaly Respiratory exam: PRESENT: clear to auscultation masood, symmetrical, unlabored. ABSENT: rales, rhonchi, wheezes Cardiovascular exam: PRESENT: RRR. ABSENT: diastolic murmur, rubs, systolic murmur Pulses: PRESENT: normal dorsalis pedis pul Vascular exam: PRESENT: normal capillary refill GI/Abdominal exam: PRESENT: normal bowel sounds, soft. ABSENT: distended, guarding, mass, organolmegaly, rebound, tenderness Rectal exam: PRESENT: deferred Extremities exam: PRESENT: full ROM. ABSENT: calf tenderness, clubbing, pedal edema Neurological exam: PRESENT: alert, awake, oriented to person, oriented to place, oriented to time, oriented to situation Psychiatric exam: PRESENT: appropriate affect, normal mood. ABSENT: homicidal ideation, suicidal ideation Skin exam: PRESENT: dry, intact, warm. ABSENT: cyanosis, rash Results Laboratory Results: 09/11/18 03:10 09/11/18 03:10 09/09/18 05:45 Throat Throat Culture - Final NORMAL ALYSSA 09/08/18 16:08 Troponin I < 0.012 NT-Pro-B Natriuret Pep 140 H Impressions: Chest X-Ray 09/09/18 06:00 IMPRESSION: NO ACUTE RADIOGRAPHIC FINDING IN THE CHEST. Chest CT 09/10/18 08:40 IMPRESSION: Minimal right lower lobe airspace disease. Otherwise unremarkable study Status: Imported from PACS Assessment and Plan - Diagnosis (1) Acute exacerbation of COPD with asthma Is this a current diagnosis for this admission?: Yes Plan: Likely secondary to URI as evidence by (+) sputum culture alpha-1 antitrypsin deficiency still possible but will plan for pulmonary follow up as out patient Family history of alpha-1 antitrypsin disease and celiac disease CXR completely benign CT chest benign Scheduled and as needed nebulizer treatments Scheduled IV Solu-Medrol Supplemental oxygen via nasal cannula for SPO2 >88% Robitussin-AC for persistent dry cough Scheduled spiriva, unfortunately Serevent is unavailable right now at [facility] pharmacy Amoxicillin for beta-lactamase NEGATIVE h. influenzae (2) Acute respiratory failure with hypoxia Is this a current diagnosis for this admission?: Yes Plan: Improved Secondary to URI (+) h. influenzae Initially requiring BIPAP Dyspnea and hypoxia upon admission initially treated with nebulizers, steroids, IV magnesium, BiPAP Weaned from BiPAP to nasal cannula History of sleep apnea requiring CPAP at night (3) GERD (gastroesophageal reflux disease) Qualifiers: Esophagitis presence: without esophagitis Qualified Code(s): K21.9 - Gastro-esophageal reflux disease without esophagitis Is this a current diagnosis for this admission?: Yes Plan: H GERD Continue home dose PPI (4) Rheumatoid arthritis Qualifiers: Rheumatoid arthritis location: multiple sites Is this a current diagnosis for this admission?: Yes Plan: Currently on high-dose steroids Monitor for exacerbation of joint pain (5) Vomiting Is this a current diagnosis for this admission?: Yes Plan: Stemming from severe coughing. Patient coughs to the point of vomiting Robitussin-AC order for cough As needed Zofran ordered for nausea (6) Microcytic anemia Is this a current diagnosis for this admission?: Yes Plan: Iron deficiency anemia As evidenced by low serum iron, low serum ferritin, low hemoglobin and low MCV Unclear etiology at this time, no evidence of blood loss, will require further investigation - Time Time Spent with patient: 15-24 minutes Medications reviewed and adjusted accordingly: Yes Anticipated discharge: Home Within: within 24 hours - Inpatient Certification Based on my medical assessment, after consideration of the patient's comorbidities, presenting symptoms, or acuity I expect that the services needed warrant INPATIENT care.: Yes I certify that my determination is in accordance with my understanding of Medicare's requirements for reasonable and necessary INPATIENT services [42 CFR 412.3e].: Yes Medical Necessity: Risk of Complication if Not Cared For in Hospital
[2018-09-12] MEDS: MONTELUKAST SODIUM 10 MG TABLET PO SCH (21:14)
[2018-09-13] MEDS: METHYLPREDNISOLONE INJ 125 MG/2 ML SDV IV SCH (05:12)
[2018-09-13] MEDS: AMOXICILLIN TRIHYDRATE 500 MG CAPSULE PO SCH (05:12)
[2018-09-13] MEDS: BUDESONIDE NEB 0.5 MG/2 ML AMPUL NEB SCH (07:38)
[2018-09-13] MEDS: IPRATROPIUM/ALBUTEROL 0.5-2.5 MG/3 ML AMPUL NEB SCH (07:38)
[2018-09-13] MEDS: TIOTROPIUM BROMIDE DPI 5 CAP/KIT (18 MCG/CAP) IH SCH (09:22)
[2018-09-13] MEDS: PANTOPRAZOLE SODIUM 40 MG TABLET.DR PO SCH (09:22)
[2018-09-13] MEDS: CETIRIZINE 10 MG TABLET PO SCH (09:22)
[2018-09-13] MEDS: ENOXAPARIN SODIUM INJ 40 MG/0.4 ML DISP.SYRIN SUBCUT SCH (09:22)
[2018-09-13] MEDS: DULOXETINE HCL 30 MG CAPSULE.DR PO SCH (09:22)
[2018-09-13] MEDS: SENNOSIDES/DOCUSATE 8.6-50 MG 1 EACH TABLET PO SCH (09:22)
[2018-09-13 10:26] VITALS: BP 115/60
--- NOTE | 2018-09-17 09:49 | PDOC DISCHARGE SUMMARY ---
General - Admit/Disc Date/PCP Admission Date/Primary Care Provider: 09/08/18 17:34 ALELGRA PICKETT, Discharge Date: 09/13/18 - Discharge Diagnosis (1) Acute exacerbation of COPD with asthma Is this a current diagnosis for this admission?: Yes (2) Acute respiratory failure with hypoxia Is this a current diagnosis for this admission?: Yes (3) Haemophilus influenzae infection Is this a current diagnosis for this admission?: Yes (4) GERD (gastroesophageal reflux disease) Is this a current diagnosis for this admission?: Yes (5) Rheumatoid arthritis Is this a current diagnosis for this admission?: Yes (6) Vomiting Is this a current diagnosis for this admission?: Yes (7) Microcytic anemia Is this a current diagnosis for this admission?: Yes - Additional Information Resuscitation Status: Full Code Discharge Diet: As Tolerated Discharge Activity: Activity As Tolerated Prescriptions: Amoxicillin Trihydrate [Amoxil 500 mg Capsule] 500 mg PO Q8 6 Days #18 capsule Guaifenesin/Codeine Phos [Robitussin-AC Liquid 5 ml Udcup] 5 ml PO QIDP PRN #1 bottle PRN Reason: Home Medications: Albuterol Sulfate [Ventolin Hfa 8 gm Mdi (1 Mdi/ER Disp)] 1 puff IH Q6HP PRN 09/08/18 Alprazolam [Xanax] 1 mg PO Q8 09/08/18 Brexpiprazole [Rexulti] 0.5 mg PO DAILY 09/08/18 Budesonide/Formoterol Fumarate [Symbicort HFA 160-4.5 mcg Inhaler 6 gm] 2 puff IH Q12 09/08/18 Duloxetine HCl [Cymbalta] 60 mg PO Q12 09/08/18 Hydroxyzine Pamoate [Vistaril 25 mg Capsule] 25 mg PO Q8HP PRN 09/08/18 Montelukast Sodium [Singulair 10 mg Tablet] 10 mg PO QHS 09/08/18 Pantoprazole Sodium [Protonix [address] Tablet] 40 mg PO DAILY 09/08/18 Tiotropium [place] [Spiriva Respimat] 2 puff IH DAILY 09/08/18 Zolpidem Tartrate [Ambien] 10 mg PO HSP PRN 09/08/18 Amoxicillin Trihydrate [Amoxil 500 mg Capsule] 500 mg PO Q8 6 Days #18 capsule 09/13/18 Brexpiprazole [Rexulti] 0.5 mg PO .DAILY 09/13/18 Cetirizine HCl [Zyrtec 10 mg Tablet] 10 mg PO DAILY tablet 09/13/18 Guaifenesin/Codeine Phos [Robitussin-AC Liquid 5 ml Udcup] 5 ml PO QIDP PRN #1 bottle 09/13/18 Hydroxyzine Pamoate [Vistaril 25 mg Capsule] 25 mg PO TIDP PRN capsule 09/13/18 Montelukast Sodium [Singulair 10 mg Tablet] 10 mg PO QHS tablet 09/13/18 Zolpidem Tartrate [Ambien 5 mg Tablet] 10 mg PO HSP PRN tablet 09/13/18 History of Present Illness History of Present Illness: ARABELLA SINGLETON is a 43 year old female who has been experiencing increasing shortness of breath with productive cough since Thursday. She was on a cruise with her family. Her daughter had strep throat on the cruise. The patient has a significant history for chronic obstructive pulmonary disease and asthma with recent hospitalization in April. She reports that no one has given her a specific cause for her respiratory illness. She has been to [facility]. She has not had a lung biopsy. She reports that she sent a sample to a genetic testing company and the results show that she is at risk for alpha-1 antitrypsin deficiency as well as celiac disease. There is a family history of alpha-1 antitrypsin disease. She does not report a confluence of respiratory infections on the cruise ship. She was coughing up yellow-green sputum. She had increased work of breathing requiring supplemental oxygen and was placed on BiPAP. She was referred to the hospitalist service for admission. Hospital Course Hospital Course: 43 y.o. F with a PMH of asthma, bronchitis, CVA, rheumatoid arthritis, depression, anxiety and obesity. The patient was admitted to hospitalist service for acute hypoxic respiratory failure requiring BiPAP. She was weaned from BIPAP within 24hrs of admission, able to maintain SPO2>93% on nasal cannula (patient is not on home O2). The patient states she was never a smoker so a diagnosis of COPD is unlikely. She was initially treated as a severe asthma exacerbation with scheduled steroids and scheduled nebulizer treatments. She reported a number of her children were positive for strep throat shortly after the entire family returned from a cruise. The patient's rapid strep test and throat culture were negative. Her sputum culture eventually resulted and was (+) positive for haemophilus influenzae. She was started on PO Amoxicillin. On hospital day #5 the patient was deemed safe for discharge. She was able to ambulate while maintaining SPO2>92% and her HR remained < 120. Of note, the patient is well known to the hospitalist service for acute hypoxic respiratory failure admissions, often thought to be related to severe asthma. The patient has a family member with alpha-1 antitrypson deficiency and she recently completed a home DNA analysis that stated she is at high risk for developing the deficiency. The patient was strongly urged to follow up with her stores clerk regarding A1AD workup. For further information regarding this patient's hospitalization, please refer to the EMR. Physical Exam Vital Signs: Temp Pulse Resp BP Pulse Ox 97.5 F 60 18 115/60 95 09/13/18 10:25 09/13/18 10:25 09/13/18 10:25 09/13/18 10:25 09/13/18 10:25 General appearance: PRESENT: no acute distress, obese Head exam: PRESENT: atraumatic, normocephalic Eye exam: PRESENT: conjunctiva pink, EOMI, PERRLA. ABSENT: scleral icterus Ear exam: PRESENT: normal external ear exam Mouth exam: PRESENT: moist, tongue midline Neck exam: ABSENT: carotid bruit, JVD, lymphadenopathy, thyromegaly Respiratory exam: PRESENT: clear to auscultation masood, symmetrical, unlabored. ABSENT: rales, rhonchi, wheezes Cardiovascular exam: PRESENT: RRR. ABSENT: diastolic murmur, rubs, systolic murmur Pulses: PRESENT: normal radial pulses, normal dorsalis pedis pul Vascular exam: PRESENT: normal capillary refill GI/Abdominal exam: PRESENT: normal bowel sounds, soft. ABSENT: distended, guarding, mass, organolmegaly, rebound, tenderness Rectal exam: PRESENT: deferred Extremities exam: PRESENT: full ROM. ABSENT: calf tenderness, clubbing, pedal edema Musculoskeletal exam: PRESENT: ambulatory, full ROM. ABSENT: deformity Neurological exam: PRESENT: alert, awake, oriented to person, oriented to place, oriented to time, oriented to situation Psychiatric exam: PRESENT: appropriate affect, normal mood Skin exam: PRESENT: dry, intact, warm. ABSENT: cyanosis, rash Results Laboratory Results: 09/11/18 03:10 09/11/18 03:10 09/08/18 16:08 Troponin I < 0.012 NT-Pro-B Natriuret Pep 140 H Impressions: Chest X-Ray 09/09/18 06:00 IMPRESSION: NO ACUTE RADIOGRAPHIC FINDING IN THE CHEST. Chest CT 09/10/18 08:40 IMPRESSION: Minimal right lower lobe airspace disease. Otherwise unremarkable study Status: Imported from PACS Qualifiers - * PATIENT BEING DISCHARGED WITH ANY OF THE FOLLOWING DIAGNOSIS: No
== END 2018-09-13 11:15 | disposition home or self-care (01) | DRG 189 ==
LOC: ER 15:33 → EH 17:34 → EEVIPCON 17:34 → 3N 20:35
PROVIDERS: ADMIT Hospitalist; ATTEND Hospitalist
PROC: 5A09557 Assistance with Respiratory Ventilation, Greater than 96 Consecutive Hours, Continuous Positive Airway Pressure (ICD-10-PCS; principal; 2018-09-08)
DX: J96.01 Acute respiratory failure with hypoxia (principal); J45.51 Severe persistent asthma with (acute) exacerbation; B96.3 Hemophilus influenzae [H. influenzae] as the cause of diseases classified elsewhere; J06.9 Acute upper respiratory infection, unspecified; K21.9 Gastro-esophageal reflux disease without esophagitis; F41.9 Anxiety disorder, unspecified; F32.9 Major depressive disorder, single episode, unspecified; M06.9 Rheumatoid arthritis, unspecified; D50.9 Iron deficiency anemia, unspecified; E66.9 Obesity, unspecified; Z83.49 Family history of other endocrine, nutritional and metabolic diseases; Z90.49 Acquired absence of other specified parts of digestive tract; Z79.52 Long term (current) use of systemic steroids; Z79.51 Long term (current) use of inhaled steroids; Z83.3 Family history of diabetes mellitus; Z88.8 Allergy status to other drugs, medicaments and biological substances; Z86.73 Personal history of transient ischemic attack (TIA), and cerebral infarction without residual deficits
CPT/HCPCS: 36415; 71045; 71250; 80048; 80053; 81332; 82607; 82728; 82746; 82803; 83540; 83550; 83735; 83880; 84100; 84484; 84703; 85025; 85027; 85045; 87070; 87077; 87205; 87880; 93005; 93010; 94640; 94660; 96374; 96375; 96376; 99291; J2405; J2930; J3475; J3490; J7030; J7620

== ENCOUNTER 2018-10-08 17:21 | Emergency (ER) | payer MEDICARE, MEDICAID ==
--- NOTE | 2018-10-08 17:35 | ER Document Report ---
HPI - HPI Patient complains to provider of: head injury, side pain Time Seen by Provider: 10/08/18 17:29 Onset: Just prior to arrival Onset/Duration: Sudden Quality of pain: Achy Severity: Moderate Pain Level: 3 Context: Patient presents to the emergency department with complaints of head injury and right-sided pain. Patient reports she was moving her bedroom furniture around. She lifted her mattress, box [place] and frame against the wall and it fell on her. She is unsure of change in LOC. She reports that she just remember crawling out from her bedroom and being really hurt. Denies other complaints such as fever vomiting diarrhea. Patient answering questions appropriately no confusion. Associated Symptoms: None Exacerbated by: Denies Relieved by: Denies Similar symptoms previously: No Recently seen / treated by doctor: No - REPRODUCTIVE Reproductive: DENIES: : Past Medical History - General Information source: Patient - Social History Smoking Status: Unknown if Ever Smoked Cigarette use (# per day): No Frequency of alcohol use: None Drug Abuse: None Lives with: Family Family History: COPD - Father was x ray examiner of aircraft in [place], CVA - Mother, DM - Her other , Other - Sisters with rheumatoid arthritis and cervical cancer each. Alpha-1 antitrypsin deficiency mother. - Past Medical History Cardiac Medical History: Denies: Hx Coronary Artery Disease, Hx Heart Attack, Hx Hypertension, Hx Pulmonary Embolism Pulmonary Medical History: Reports: Hx Asthma, Hx Bronchitis, Hx COPD - INHALERS, Hx Pneumonia Denies: Hx Respiratory Failure, Hx Sleep Apnea, Hx Tuberculosis Neurological Medical History: Denies: Hx Cerebrovascular Accident, Hx Seizures Endocrine Medical History: Denies: Hx Diabetes Mellitus Type 2, Hx Hyperthyroidism, Hx Hypothyroidism Renal/ Medical History: Denies: Hx Kidney Stones, Hx Peritoneal Dialysis Malignancy Medical History: Denies: Hx Lung Cancer GI Medical History: Reports: Hx Gastroesophageal Reflux Disease Musculoskeletal Medical History: Reports Hx Arthritis - RA Psychiatric Medical History: Reports: Hx Anxiety, Hx Depression - anxiety severe Past Surgical History: Reports: Hx Appendectomy, Hx Section - x 3, Hx Tubal Ligation, Other - Biopsy left neck mass benign, eye surgery, bronchoscopy at [place]. Denies: Hx Pacemaker - Immunizations Immunizations up to date: Yes Hx Diphtheria, Pertussis, Tetanus Vaccination: No Hx Pneumococcal Vaccination: 03/25/13 Vertical Provider Document - CONSTITUTIONAL Agree With Documented VS: Yes Exam Limitations: No Limitations General Appearance: WD/WN, No Apparent Distress - INFECTION CONTROL TRAVEL OUTSIDE OF THE U.S. IN LAST 30 DAYS: No COUNTRY TRAVELED TO/FROM: [facility] - HEENT HEENT: Atraumatic, Normocephalic, PERRLA. negative: Conjuctival Injection - NECK Neck: Normal Inspection, Supple. negative: Lymphadenopathy-Left, Lymphadenopathy-Right - RESPIRATORY Respiratory: No Respiratory Distress - CARDIOVASCULAR Cardiovascular: Regular Rate - GI/ABDOMEN Gastrointestinal: Abdomen Soft, Abdomen Non-Tender - BACK Back: Normal Inspection - no obvious injury, no erythema no warmth no swelling good distal movement and sensation she ambulates to the restroom without problems. - MUSCULOSKELETAL/EXTREMETIES Musculoskeletal/Extremeties: MAEW, FROM, Non-Tender - NEURO Level of Consciousness: Awake, Alert, Appropriate Motor/Sensory: No Motor Deficit - DERM Integumentary: Warm, Dry Course - Re-evaluation Re-evalutation: 10/08/18 18:32 CT negative UA unremarkable. Patient was instructed on head injury precautions follow-up with her primary care provider. She verbalized understanding to all instructions discharged home Dictation of this chart was performed using voice recognition software; therefore, there may be some unintended grammatical errors. - Diagnostic Test Radiology reviewed: Image reviewed, Reports reviewed - CT negative for an acute injury Discharge - Discharge Clinical Impression: Head injury Qualifiers: Encounter type: initial encounter Qualified Code(s): S09.90XA - Unspecified injury of head, initial encounter Right-sided back pain Qualifiers: Back pain location: back pain in unspecified location Chronicity: acute Qualified Code(s): M54.9 - Dorsalgia, unspecified Disposition: HOME, SELF-CARE Instructions: Head Injury Precautions ([facility]) Additional Instructions: *You have been evaluated for head injury, right side pain *Take motrin as indicated for pain *Follow up with a primary care provider within 5 days for a recheck *Return to ED for worsening condition, changes, needs, concerns Referrals: ALLEGRA PICKETT DO [Primary Care Provider] - Follow up in 3-5 days
[2018-10-08 18:22] LABS: APPEARANCE,URINE SLIGHTLY-CLOUDY; BILIRUBIN,URINE NEGATIVE (NEGATIVE); GLUCOSE, URINE NEGATIVE (NEGATIVE); KETONES,URINE TRACE mg/dL (NEGATIVE); LEUKOCYTE ESTERASE,URINE NEGATIVE (NEGATIVE); NITRITE,URINE NEGATIVE (NEGATIVE); PROTEIN,URINE NEGATIVE (NEGATIVE); URINE SPECIFIC GRAVITY 1.024
[2018-10-08 18:24] LABS: COLOR,URINE YELLOW
--- NOTE | 2018-10-08 18:25 | RADIOLOGY REPORT (SQ) ---
EXAM DESCRIPTION: CT HEAD WITHOUT COMPLETED DATE/TIME: 10/08/2018 6:16 pm REASON FOR STUDY: hit head with bed frame COMPARISON: None. TECHNIQUE: Axial images acquired through the brain without intravenous contrast. Images reviewed wi th bone, brain and subdural windows. Additional sagittal and coronal reconstructions were generated. Images stored on PACS. All CT scanners at this facility use dose modulation, iterative reconstruction, and/or weight based d osing when appropriate to reduce radiation dose to as low as reasonably achievable (ALARA). [facility]: Dose Right [facility]: CareDose [facility]: Dose Right [facility]: Teradose 4D [facility]: [employer] RADIATION DOSE: CT Rad equipment meets quality standard of care and radiation dose reduction techniq ues were employed. CTDIvol: 53.2 mGy. DLP: 991 mGy-cm. mGy. LIMITATIONS: None. FINDINGS: VENTRICLES: Normal size and contour. CEREBRUM: No masses. No hemorrhage. No midline shift. No evidence for acute infarction. Normal gra y/white matter differentiation. No areas of low density in the white matter. CEREBELLUM: No masses. No hemorrhage. No alteration of density. No evidence for acute infarction. EXTRAAXIAL SPACES: No fluid collections. No masses. ORBITS AND GLOBE: No intra- or extraconal masses. Normal contour of globe without masses. CALVARIUM: No fracture. PARANASAL SINUSES: No fluid or mucosal thickening. SOFT TISSUES: No mass or hematoma. OTHER: No other significant finding. IMPRESSION: NORMAL BRAIN CT WITHOUT CONTRAST. EVIDENCE OF ACUTE STROKE: NO. COMMENT: Quality ID # [id number]: Final reports with documentation of one or more dose reduction techniques (e.g., Automated exposure control, adjustment of the mA and/or kV according to patient size, use of iterative reconstruction technique) TECHNICAL DOCUMENTATION: JOB ID: [id number] [employer]- All Rights Reserved Reading location - IP/workstation name: [email or web address]
[2018-10-08] MEDS ORDERED: IBUPROFEN 800 MG TABLET PO ONE (18:28)
[2018-10-08 18:46] VITALS: BP 114/62
== END 2018-10-08 18:46 | disposition home or self-care (01) ==
LOC: ER 17:21
DX: S09.90XA Unspecified injury of head, initial encounter (principal); M54.9 Dorsalgia, unspecified; W20.8XXA Other cause of strike by thrown, projected or falling object, initial encounter; Y92.003 Bedroom of unspecified non-institutional (private) residence as the place of occurrence of the external cause; Z98.51 Tubal ligation status
CPT/HCPCS: 99284; 81001; 70450; A9270

== ENCOUNTER 2018-12-26 16:16 | Emergency (ER) | payer MEDICARE, MEDICAID ==
--- NOTE | 2018-12-26 16:38 | ER Document Report ---
HPI - HPI Patient complains to provider of: right hand injury Time Seen by Provider: 12/26/18 16:33 Onset: Just prior to arrival Onset/Duration: Sudden Quality of pain: Throbbing Pain Level: 2 Context: This 43-year-old female presents emergency department with complaints of right hand right wrist pain. Patient reports she was rollerskating when her came up behind her and ran into her and she fell onto her right hand. She c/o pain to dorsal hand scaphoid area radiating into her wrist. Rings removed in ST by patient. patient is right hand dominant. she denies past medical history of injury to wrist or hand. Patient did not hit her head. Denies other symptoms such as fever and vomiting. 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 Alpha-1 antitrypsin deficiency mother. Patient has suicidal ideation: No Patient has homicidal ideation: No - Past Medical History Cardiac Medical History: Denies: Hx Coronary Artery Disease, Hx Heart Attack, Hx Hypertension, Hx Pu lmonary Embolism Pulmonary Medical History: Reports: Hx Asthma, Hx Bronchitis, Hx COPD - INHALERS, Hx Pneumonia Denies: Hx Respiratory Failure, Hx Sleep Apnea, Hx Tuberculosis Neurological Medical History: Denies: Hx Cerebrovascular Accident, Hx Seizures Endocrine Medical History: Denies: Hx Diabetes Mellitus Type 2, Hx Hy perthyroidism, Hx Hypothyroidism Renal/ Medical History: Denies: Hx Kidney Stones, Hx Peritoneal Dialysis Malignancy Medical History: Denies: Hx Lung Cancer GI Medical History: Reports: Hx Gastroesophageal Reflux Disease Musculoskeletal Medical History: Reports Hx Arthritis - RA Psychiatric Medical History: Reports: Hx Anxiety, Hx Depression - anxiety severe Past Surgical History: Reports: Hx Appendectomy, Hx Section - x 3, Hx Tubal Ligation, Other - Biopsy left neck mass benign, eye surgery, bronchoscopy at [place]. Denies: Hx Pacemaker - Immunizations Immunizations up to date: Yes Hx Diphtheria, Pertussis, Tetanus Vaccination: No Hx Pneumococcal Vaccination: 03/25/13 Vertical Provider Document - CONSTITUTIONAL Agree With Documented VS: Yes Exam Limitations: No Limitations General Appearance: WD/WN, Mild Distress - winces when hand palpated - INFECTION CONTROL TRAVEL OUTSIDE OF THE [place].S. IN LAST 30 DAYS: No - HEENT HEENT: Atraumatic, Normocephalic - NECK Neck: Supple - RESPIRATORY Respiratory: No Respiratory Distress - CARDIOVASCULAR Cardiovascular: Tachycardia - MUSCULOSKELETAL/EXTREMETIES Musculoskeletal/Extremeties: Tender - right hand scaphoid ttp, no obvious deformity, cap refill good radial pulse Course - Re-evaluation Re-evalutation: 12/26/18 17:53 This 43-year-old female presents emergency department with complaints of right wrist and hand pain post fall after she was hit from behind at a skating rink. Patient is extremely tender in her scaphoid area. Radiology exams do not note any fracture. injury and complaint of pain is worriesome for scaphoid fracture. Patient was placed in a thumb spica splint and sling. She was instructed to follow-up with orthopedics for recheck evaluation. Patient declined pain medication reports she will take Motrin for the pain. Patient was provided with the name of Dr. Dyer orthopedic and [facility]. She was instructed to follow-up with her primary care provider and referral to orthopedics. Hand X-Ray 12/26/18 16:36 IMPRESSION: NEGATIVE STUDY OF THE RIGHT HAND. NO RADIOGRAPHIC EVIDENCE OF ACUTE INJURY. Wrist X-Ray 12/26/18 16:36 IMPRESSION: NEGATIVE STUDY OF THE RIGHT WRIST. NO RADIOGRAPHIC EVIDENCE OF ACUTE INJURY. 12/26/18 17:55 - Vital Signs Vital signs: Temp Pulse Resp BP Pulse Ox 98.5 F 115 H 14 115/60 97 12/26/18 16:26 12/26/18 16:26 12/26/18 16:26 12/26/18 16:26 12/26/18 16:26 - Diagnostic Test Radiology reviewed: Image reviewed, Reports reviewed Procedures - Immobilization Right Hand Pre-Proc Neuro Vasc Exam: Normal Immobilizer type: Thumb spica, Sling Performed by: SHERMAN duenas pct Post-Proc Neuro Vasc Exam: Unchanged from pre-exam Alignment checked and good: Yes Discharge - Discharge Clinical Impression: right wrist and hand injury Condition: Stable Disposition: HOME, SELF-CARE Instructions: Use of Osiz-Cqz-Niogqng Ibuprofen ([facility]), Temporary Sling ([facility]), Temporary Splint ([facility]) Additional Instructions: *You have been evaluated for right hand wrist injury *Maintain the splint and sling *Rest/Ice/Elevate *Follow up with orthopedics this week for recheck *Take the ibuProfen as indicated *Return to ED for worsening condition, changes, needs Forms: Return to Work Referrals: ALLEGRA PICKETT DO [Primary Care Provider] - Follow up tomorrow EZRA DYER MD [ACTIVE PROVISIONAL STAFF] - Follow up as needed [facility] [Provider Group] - Follow up as needed
--- NOTE | 2018-12-26 17:02 | RADIOLOGY REPORT (SQ) ---
EXAM DESCRIPTION: WRIST RIGHT 2 VIEWS COMPLETED DATE/TIME: 12/26/2018 4:53 pm REASON FOR STUDY: fell rollerskating, scaphoid ttp wrist pain COMPARISON: None. NUMBER OF VIEWS: Two views. TECHNIQUE: AP and lateral radiographic images acquired of the right wrist. LIMITATIONS: None. FINDINGS: MINERALIZATION: Normal. BONES: No acute fracture or dislocation. No worrisome bone lesions. Normal alignment. SOFT TISSUES: No soft tissue swelling. No foreign body. OTHER: No other significant finding. IMPRESSION: NEGATIVE STUDY OF THE RIGHT WRIST. NO RADIOGRAPHIC EVIDENCE OF ACUTE INJURY. TECHNICAL DOCUMENTATION: JOB ID: [id number] [employer] All Rights Reserved Reading location - IP/workstation name: [email or web address]
--- NOTE | 2018-12-26 17:03 | RADIOLOGY REPORT (SQ) ---
EXAM DESCRIPTION: HAND RIGHT 3 VIEWS COMPLETED DATE/TIME: 12/26/2018 4:53 pm REASON FOR STUDY: fell rollerskating, scaphoid ttp wrist pain COMPARISON: 05/19/2014. EXAM PARAMETERS: NUMBER OF VIEWS: Three views. TECHNIQUE: AP, lateral and oblique radiographic images acquired of the right hand. LIMITATIONS: None. FINDINGS: MINERALIZATION: Normal. BONES: No acute fracture or dislocation. No worrisome bone lesions. JOINTS: No effusions. SOFT TISSUES: No soft tissue swelling. No foreign body. OTHER: No other significant finding. IMPRESSION: NEGATIVE STUDY OF THE RIGHT HAND. NO RADIOGRAPHIC EVIDENCE OF ACUTE INJURY. TECHNICAL DOCUMENTATION: JOB ID: [id number] [employer]- All Rights Reserved Reading location - IP/workstation name: [email or web address]
[2018-12-26 17:47] VITALS: BP 114/56
== END 2018-12-26 17:46 | disposition home or self-care (01) ==
LOC: EEVIPCON 16:16 → ER 16:16
DX: S69.91XA Unspecified injury of right wrist, hand and finger(s), initial encounter (principal); V00.128A Other non-in-line roller-skating accident, initial encounter; Z98.51 Tubal ligation status
CPT/HCPCS: 99283

== ENCOUNTER 2019-03-19 05:27 | Emergency (ER) | payer MEDICARE, MEDICAID ==
[2019-03-19 05:35] VITALS: BP 133/55
[2019-03-19] MEDS ORDERED: PREDNISONE 20 MG TABLET PO ONE (05:50)
[2019-03-19] MEDS ORDERED: IPRATROPIUM/ALBUTEROL 0.5-2.5 MG/3 ML AMPUL NEB ONE (05:50)
--- NOTE | 2019-03-19 08:33 | ER Document Report ---
ED General - General Chief Complaint: Shortness Of Breath Stated Complaint: COUGHING,WHEEZING Time Seen by Provider: 03/19/19 05:51 Primary Care Provider: ALLEGRA PICKETT DO [Primary Care Provider] - Follow up as needed TRAVEL OUTSIDE OF THE U.S. IN LAST 30 DAYS: No - HPI Notes: Patient is a 43-year-old female with a history of significant asthma. She comes in for shortness of breath. She states is been short of breath for the last several weeks. Patient notes that she is to receive Xolair infusions in the hospital every 2 weeks. This is through her bridge maintainer. Her bridge maintainer no longer has ties the hospital, and she is on the waiting list for the other bridge maintainer in town. She states she feels her breathing is worsened since discontinuation of this medication. She denies any fevers. She has nonproductive cough. She denies any pain of any sort. She states she has been taking her medications as prescribed. - Related Data Allergies/Adverse Reactions: cefuroxime axetil [From Ceftin] Allergy (Intermediate, Verified 12/26/18 16:18) Hives voriconazole [From Vfend] Adverse Reaction (Mild, Verified 12/26/18 16:18) Skin Redness Home Medications: albuterol neb, advair 500, symbicort, but no xolair (has missed 3 doses), Ambien, Rexulti, duloxetine, entire list reviewed, please see notes Past Medical History - General Information source: Patient - Social History Smoking Status: Never Smoker Family History: COPD - Father was placer miner in [place], CVA - Mother, DM - Her other , Other - Sisters with rheumatoid arthritis and cervical cancer e ach. Alpha-1 antitrypsin deficiency mother. Patient has suicidal ideation: No Patient has homicidal ideation: No - Past Medical History Cardiac Medical History: Denies: Hx Coronary Artery Disease, Hx Heart Attack, Hx Hypertension, Hx Pulmonary Embolism Pulmonary Medical History: Reports: Hx Asthma, Hx Bronchitis, Hx COPD - INHALERS, Hx Pneumonia Denies: Hx Respiratory Failure, Hx Sleep Apnea, Hx Tuberculosis Neurological Medical History: Denies: Hx Cerebrovascular Accident, Hx Seizures Endocrine Medical History: Denies: Hx Diabetes Mellitus Type 2, Hx Hyperthyroidism, Hx Hypothyroidism Renal/ Medical History: Denies: Hx Kidney Stones, Hx Peritoneal Dialysis Malignancy Medical History: Denies: Hx Lung Cancer GI Medical History: Reports: Hx Gastroesophageal Reflux Disease Musculoskeletal Medical History: Reports Hx Arthritis - RA Psychiatric Medical History: Reports: Hx Anxiety, Hx Depression - anxiety severe Past Surgical History: Reports: Hx Appendectomy, Hx Section - x 3, Hx Tubal Ligation, Other - Biopsy left neck mass benign, eye surgery, bronchoscopy at [place]. Denies: Hx Pacemaker - Immunizations Immunizations up to date: Yes Hx Diphtheria, Pertussis, Tetanus Vaccination: No Hx Pneumococcal Vaccination: 03/25/13 Review of Systems - Review of Systems Constitutional: No symptoms reported EENT: No symptoms reported Cardiovascular: No symptoms reported Respiratory: See HPI Gastrointestinal: No symptoms reported Genitourinary: No symptoms reported Musculoskeletal: No symptoms reported Skin: No symptoms reported Neurological/Psychological: No symptoms reported Physical Exam - Vital signs Vitals: Temp Pulse Resp BP Pulse Ox 98.3 F 107 H 24 H 133/55 H 100 03/19/19 05:34 03/19/19 05:34 03/19/19 05:34 03/19/19 05:34 03/19/19 05:34 - Notes Notes: Vital signs reviewed, please refer to chart. Head is normocephalic, atraumatic. Pupils equal round, reactive to light. Neck is supple without meningismus. Heart is regular rate and rhythm. Lungs reveal scant expiratory wheezes throughout, but no respiratory distress.. Abdomen is soft, nontender, normoactive bowel sounds throughout. Extremities without cyanosis, clubbing. Posterior calves are nontender. Peripheral pulses are equal. Skin is warm and dry. Patient is awake, alert, neurological exam is nonfocal. Course - Re-evaluation Re-evalutation: 03/19/19 08:33 Patient presents to the emergency department for evaluation. She has a history of significant asthma. She is concerned about the abrupt withdrawal of her Xolair. I did go through and look at NIH and CDC studies. Primarily, there are 90s specific studies and to short-term use of Xolair with abrupt discontinuation. It is not tapered in normal trials, when it is treated for hives or other sort of allergic mediated conditions. Patient does still have some persistent wheezing, but is 97 to 99% on room air. Her respiratory rate is normal. She is on any significant distress. She is Cleve on prednisone daily at [address] her on a burst and taper her back down to her normal 10 mg. She is strongly encouraged to seek out pulmonology. She is on the waiting list with the other bridge maintainer here in [facility]. Given the significant symptoms associated with her asthma, I encouraged her to seek out potential pulmonologists in both [facility]. She voiced understanding to this. We will send her with steroids and close follow-up, she is to return to the ED with worsening. - Vital Signs Vital signs: Temp Pulse Resp BP Pulse Ox 98.3 F 107 H 24 H 133/55 H 100 03/19/19 05:34 03/19/19 05:34 03/19/19 05:34 03/19/19 05:34 03/19/19 05:34 Discharge - Discharge Clinical Impression: Severe asthma with acute exacerbation Qualifiers: Asthma persistence: persistent Qualified Code(s): J45.51 - Severe persistent asthma with (acute) exacerbation Condition: Stable Disposition: HOME, SELF-CARE Instructions: Asthma ([facility]) Additional Instructions: Seek out the care of a bridge maintainer as soon as possible. Follow-up with your primary care provider next week. Take steroids as directed until gone. Resume your normal prednisone dose once you have completed them. If your breathing worsens, you develop new or concerning symptoms of any sort, please return immediately to the emergency department for reevaluation. Referrals: ALLEGRA PICKETT DO [Primary Care Provider] - Follow up as needed
== END 2019-03-19 09:00 | disposition home or self-care (01) ==
LOC: ER 05:27
DX: J45.51 Severe persistent asthma with (acute) exacerbation (principal); J44.9 Chronic obstructive pulmonary disease, unspecified; R06.02 Shortness of breath
CPT/HCPCS: 94640; 99284; A9270 ×2; J7512; J7620

== ENCOUNTER 2019-04-27 05:09 | Observation (INO) | payer MEDICARE, MEDICAID ==
[2019-04-27] MEDS ORDERED: PREDNISONE 20 MG TABLET PO ONE (05:26)
[2019-04-27] MEDS ORDERED: IPRATROPIUM/ALBUTEROL 0.5-2.5 MG/3 ML AMPUL NEB ONE (05:26)
[2019-04-27] MEDS ORDERED: METHYLPREDNISOLONE INJ 125 MG/2 ML SDV IV ONE (05:49)
[2019-04-27] MEDS: ALBUTEROL SULFATE 0.083% NEB 2.5 MG/3 ML AMPUL NEB SCH (06:04)
[2019-04-27] MEDS: MAGNESIUM SULFATE/D5W 1 GM/100 ML RTUPB IV SCH ×2 (06:05→06:07)
[2019-04-27 06:16] LABS: HEMATOCRIT 29.6 % (36.0-47.0); HEMOGLOBIN 9.3 g/dL (12.0-15.5); MEAN CORPUSCULAR HEMOGLOBIN 21.2 pg (27.0-33.4); MEAN CORPUSCULAR HGB CONC 31.6 g/dL (32.0-36.0); MEAN CORPUSCULAR VOLUME 67 fl (80-97); PLATELET COUNT 432 10^3/uL (150-450); RED CELL DISTRIBUTION WIDTH 16.8 % (11.5-14.0); WHITE BLOOD COUNT 9.5 10^3/uL (4.0-10.5)
[2019-04-27 06:32] LABS: ANION GAP 13 (5-19); BLOOD UREA NITROGEN 7 mg/dL (7-20); CARBON DIOXIDE 23 mmol/L (22-30); CHLORIDE 104 mmol/L (98-107); GLUCOSE 127 mg/dL (75-110); POTASSIUM 4.3 mmol/L (3.6-5.0)
--- NOTE | 2019-04-27 07:44 | RADIOLOGY REPORT (SQ) ---
EXAM DESCRIPTION: XR CHEST 1 VIEW COMPLETED DATE/TME: 04/27/2019 00:00 CLINICAL HISTORY: 44 years Female, productive cough, DB, wheezing COMPARISON: 09/09/18 NUMBER OF VIEWS/TECHNIQUE: 1/AP FINDINGS: Adequate lung volume, clear parenchyma, normal cardiac silhouette, and intact bony thorax. IMPRESSION: No acute cardiopulmonary findings.
--- NOTE | 2019-04-27 07:45 | ER Document Report ---
Entered by LENY GALVEZ SCRIBE 04/27/19 0642 Acting as scribe for:AUDREY GATES MD ED Respiratory Problem - General Chief Complaint: Shortness Of Breath Stated Complaint: TROUBLE BREATHING Time Seen by Provider: 04/27/19 06:09 Mode of Arrival: Ambulatory Notes: This 44-year-old female patient with an extensive pulmonary history presents emergency department today with complaints of shortness of breath for the last 2 to 3 weeks. Patient was seen here on 03/19 for difficulty breathing and she states that she feels like her breathing has not changed since that day. Patient takes albuterol, Singulair, Advair, and Xolair for her breathing although she mentions that she has been out of Xolair for quite some time. Patient is chronically on 10mg of prednisone daily. Patient has been bringing up greenish yellow sputum. Patient also complains of chills and two episodes of posttussive emesis. TRAVEL OUTSIDE OF THE [place] IN LAST 30 DAYS: No - Related Data Allergies/Adverse Reactions: cefuroxime axetil [From Ceftin] Allergy (Intermediate, Verified 12/26/18 16:18) Hives voriconazole [From Vfend] Adverse Reaction (Mild, Verified 12/26/18 16:18) Skin Redness Home Medications: prednisone Past Medical History - General Information source: Patient - Social History Smoking Status: Never Smoker Cigarette use (# per day): No Chew tobacco use (# tins/day): No Lives with: Family Family History: COPD - Father was forensic medical examiner in [place], CVA - Mother, DM - Her other , Other - Sisters with rheumatoid arthritis and cervical cancer each. Alpha-1 antitrypsin deficiency mother. Patient has suicidal ideation: No Patient has homicidal ideation: No Pulmonary Medical History: Reports: Hx Asthma, Hx Bronchitis, Hx COPD - INHALERS, Hx Pneumonia GI Medical History: Reports: Hx Gastroesophageal Reflux Disease Musculoskeletal Medical History: Reports Hx Arthritis - RA Psychiatric Medical History: Reports: Hx Anxiety, Hx Depression - anxiety severe Past Surgical History: Reports: Hx Appendectomy, Hx Section - x 3, Hx Tubal Ligation, Other - Biopsy left neck mass benign, eye surgery, bronchoscopy at [place] - Immunizations Immunizations up to date: Yes Hx Diphtheria, Pertussis, Tetanus Vaccination: No Hx Pneumococcal Vaccination: 03/25/13 Review of Systems - Review of Systems Constitutional: See HPI, Chills. denies: Fever EENT: No symptoms reported Cardiovascular: No symptoms reported Respiratory: See HPI, Cough, Short of breath, Sputum, Wheezing Gastrointestinal: See HPI, Vomiting Genitourinary: No symptoms reported Female Genitourinary: No symptoms reported Musculoskeletal: No symptoms reported Skin: No symptoms reported Hematologic/Lymphatic: No symptoms reported Neurological/Psychological: No symptoms reported -: Yes All other systems reviewed and negative Physical Exam - Vital signs Vitals: Temp Pulse Resp BP Pulse Ox 98.2 F 139 H 36 H 125/77 94 04/27/19 05:12 04/27/19 05:12 04/27/19 05:12 04/27/19 05:12 04/27/19 05:12 - Notes Notes: Physical Exam: General: Alert, appears short of breath. HEENT: Normocephalic. Atraumatic. PERRL. Extraocular movements intact. Oropharynx clear. Neck: Supple. Non-tender. Respiratory: Moderate respiratory distress. Wheezing and rhonchi bilaterally. Cardiovascular: Tachycardic, regular rhythm. Abdominal: Normal Inspection. Non-tender. No distension. Normal Bowel Sounds. Back: No gross abnormalities. Extremities: Moves all four extremities. Upper extremities: Normal inspection. Normal ROM. Lower extremities: Normal inspection. No edema. Normal ROM. Neurological: Normal cognition. AAOx4. Normal speech. Psychological: Normal affect. Normal Mood. Skin: Warm. Dry. Normal color. Course - Vital Signs Vital signs: Temp Pulse Resp BP Pulse Ox 97.6 F 139 H 15 115/87 H 99 04/27/19 12:01 04/27/19 05:12 04/27/19 12:01 04/27/19 12:01 04/27/19 12:01 - Laboratory Result Diagrams: 04/27/19 06:02 04/27/19 06:02 Laboratory results interpreted by me: 04/27/19 04/27/19 06:02 06:02 Hgb 9.3 L Hct 29.6 L MCV 67 L MCH 21.2 L MCHC 31.6 L RDW 16.8 H Glucose 127 H - Diagnostic Test Radiology reviewed: Image reviewed, Reports reviewed - Chest x-ray does not show acute cardiopulmonary disease. - EKG Interpretation by Me EKG shows normal: Sinus rhythm, [place], Intervals, QRS Complexes, ST-T Waves Rate: Tachycardia - 134 - Consults Dr. Harris Time consulted: 10:31 Consulted provider: will come to ER Critical Care Note - Critical Care Note Total time excluding time spent on procedures (mins): 35 Discharge - Discharge Clinical Impression: Tachycardia, Hypoxemia Severe asthma with acute exacerbation Qualifiers: Asthma persistence: persistent Qualified Code(s): J45.51 - Severe persistent asthma with (acute) exacerbation Condition: Good Disposition: ADMITTED OBSERVATION Admitting Provider: Kimberly (Hospitalist) Unit Admitted: Medical Floor Scribe Attestation: 04/27/19 07:47 I personally performed the services described in the documentation, reviewed and edited the documentation which was dictated to the scribe in my presence, and it accurately records my words and actions. I personally performed the services described in the documentation, reviewed and edited the documentation which was dictated to the scribe in my presence, and it accurately records my words and actions.
[2019-04-27] MEDS ORDERED: ALBUTEROL SULFATE 0.083% NEB 2.5 MG/3 ML AMPUL NEB ONE ×2 (07:46→09:54)
--- NOTE | 2019-04-27 11:46 | EKG REPORT ---
SEVERITY:- OTHERWISE NORMAL ECG - SINUS TACHYCARDIA : Confirmed by: Kristin Fernandez MD 27-Apr-2019 11:45:43
[2019-04-27] MEDS: IPRATROPIUM/ALBUTEROL 0.5-2.5 MG/3 ML AMPUL NEB SCH ×3 (12:58→20:06)
--- NOTE | 2019-04-27 13:19 | PDOC H&P ---
History of Present Illness Admission Date/PCP: 04/27/19 11:21 ALLEGRA PICKETT DO Patient complains of: SOB, wheezing History of Present Illness: ARABELLA SINGLETON is a 44 year old female with a past medical history of asthma, depression, rheumatoid arthritis, GERD and iron deficiency anemia who presented with shortness of breath and wheezing. Patient says that she has been having gradually progressive shortness of breath over the past 2 to 3 weeks. This is associated with increasing wheezes and moderately productive cough with yellowish phlegm. She denies fever or chills. Patient says that she was getting omalizumab infusions for her severe asthma and this has controlled it well. Unfortunately, she has been released under the care of Dr. Dave and hence has been off omalizumab for more than 2 months now. In the ER, she was noted to be tachypneic and had significant bilateral wheezes. She was given breathing treatments and IV steroids. She reported partial relief but still slightly tachypneic and wheezy upon encounter. Past Medical History Cardiac Medical History: Denies: Coronary Artery Disease, Myocardial Infarction, Hypertension, Pulmonary Embolism Pulmonary Medical History: Reports: Asthma, Bronchitis, Chronic Obstructive Pulmonary Disease (COPD) - INHALERS, Pneumonia Denies: Respiratory Failure, Sleep Apnea, Tuberculosis Neurological Medical History: Denies: Seizures Endocrine Medical History: Denies: Diabetes Mellitus Type 2, Hyperthyroidism, Hypothyroidism Malignancy Medical History: Denies: Lung Cancer GI Medical History: Reports: Gastroesophageal Reflux Disease Musculoskeltal Medical History: Reports: Arthritis - RA Psychiatric Medical History: Reports: Depression - anxiety severe Hematology: Denies: Anemia Past Surgical History Past Surgical History: Reports: Appendectomy, Section - x 3, Tubal Ligation, Other - Biopsy left neck mass benign, eye surgery, bronchoscopy at [place] Denies: Pacemaker Social History Lives with: Family Smoking Status: Never Smoker Frequency of Alcohol Use: None Hx Recreational Drug Use: No Drugs: None Hx Prescription Drug Abuse: No Family History Family History: COPD - Father was questioned documents examiner in [place], CVA - Mother, DM - Her other , Other - Sisters with rheumatoid arthritis and cervical cancer each. Alpha-1 antitrypsin deficiency mother. Parental Family History Reviewed: Yes - No premature CAD Children Family History Reviewed: No Sibling(s) Family History Reviewed.: No Medication/Allergy Home Medications: Albuterol Sulfate [Proair HFA Inhalation Aerosol 8.5 gm MDI] 1 puff IH Q6HP PRN 04/27/19 Alprazolam [Xanax] 1 mg PO Q8 04/27/19 Brexpiprazole [Rexulti] 1 mg PO DAILY 04/27/19 Budesonide/Formoterol Fumarate [Symbicort HFA 160-4.5 mcg Inhaler 6 gm] 2 puff IH Q12 04/27/19 Cetirizine HCl [Zyrtec 10 mg Tablet] 10 mg PO DAILY 04/27/19 Duloxetine HCl [Cymbalta] 60 mg PO Q12 04/27/19 Fluticasone/Salmeterol [Advair 500-50 Diskus 14 Dose/Diskus] 2 puff IH BID 04/27/19 Hydroxyzine Pamoate [Vistaril 25 mg Capsule] 25 mg PO Q8HP PRN 04/27/19 Ibuprofen [Motrin 800 mg Tablet] 800 mg PO Q8HP PRN 04/27/19 Montelukast Sodium [Singulair 10 mg Tablet] 10 mg PO QPM 04/27/19 Prednisone 10 mg PO DAILY 04/27/19 Tiotropium [place] [Spiriva Handihaler 5 Cap/Kit (18 Mcg/Cap)] 1 cap IH DAILY 04/27/19 Zolpidem Tartrate [Ambien] 10 mg PO HSP PRN 04/27/19 Allergies/Adverse Reactions: cefuroxime axetil [From Ceftin] Allergy (Intermediate, Verified 12/26/18 16:18) Hives voriconazole [From Vfend] Adverse Reaction (Mild, Verified 12/26/18 16:18) Skin Redness Review of Systems All systems: reviewed and no additional remarkable complaints except as stated - As mentioned in HPI Physical Exam Vital Signs: Temp Pulse Resp BP Pulse Ox 97.6 F 139 H 21 H 109/80 100 04/27/19 07:26 04/27/19 05:12 04/27/19 07:26 04/27/19 07:26 04/27/19 07:26 Intake & Output 04/26/19 04/27/19 04/28/19 06:59 06:59 06:59 Intake Total 113 Balance 113 Weight 177 lb 7.554 oz General appearance: PRESENT: mild distress Head exam: PRESENT: atraumatic, normocephalic Eye exam: PRESENT: conjunctiva pink, EOMI, PERRLA. ABSENT: scleral icterus Ear exam: PRESENT: normal external ear exam Mouth exam: PRESENT: moist, tongue midline Neck exam: ABSENT: carotid bruit, JVD, lymphadenopathy, thyromegaly Respiratory exam: PRESENT: rhonchi, wheezes. ABSENT: rales Cardiovascular exam: PRESENT: RRR. ABSENT: diastolic murmur, rubs, systolic murmur Pulses: PRESENT: normal dorsalis pedis pul GI/Abdominal exam: PRESENT: normal bowel sounds, soft. ABSENT: distended, guarding, mass, organolmegaly, rebound, tenderness Rectal exam: PRESENT: deferred Musculoskeletal exam: PRESENT: full ROM Neurological exam: PRESENT: alert, awake, oriented to person, oriented to place, oriented to time, oriented to situation, CN II-XII grossly intact. ABSENT: motor sensory deficit Results Laboratory Results: 04/27/19 06:02 04/27/19 06:02 04/27/19 04/27/19 06:02 06:02 WBC 9.5 RBC 4.40 Hgb 9.3 L Hct 29.6 L MCV 67 L MCH 21.2 L MCHC 31.6 L RDW 16.8 H Plt Count 432 Sodium 140.1 Potassium 4.3 Chloride 104 Carbon Dioxide 23 Anion Gap 13 BUN 7 Creatinine 0.61 Est GFR ( Amer) > 60 Glucose 127 H Calcium 9.0 Impressions: Chest X-Ray 04/27/19 00:00 IMPRESSION: No acute cardiopulmonary findings. Assessment and Plan - Diagnosis (1) Severe asthma with acute exacerbation Qualifiers: Asthma persistence: persistent Qualified Code(s): J45.51 - Severe persistent asthma with (acute) exacerbation Is this a current diagnosis for this admission?: Yes Plan: Start patient on Solu-Medrol 40 mg IV every 8. Will add scheduled breathing treatments. Reviewed PFT report from 2013 which was consistent with asthma. (2) GERD (gastroesophageal reflux disease) Qualifiers: Esophagitis presence: without esophagitis Qualified Code(s): K21.9 - Gastro-esophageal reflux disease without esophagitis Is this a current diagnosis for this admission?: Yes (3) Rheumatoid arthritis Qualifiers: Rheumatoid arthritis location: multiple sites Is this a current diagnosis for this admission?: Yes - Time Time Spent with patient: 25-34 minutes
--- NOTE | 2019-04-27 13:20 | ADVANCED CARE ---
- Diagnosis (1) Severe asthma with acute exacerbation Diagnosis Current: Yes (2) Depression Diagnosis Current: Yes (3) GERD (gastroesophageal reflux disease) Diagnosis Current: Yes (4) Rheumatoid arthritis Diagnosis Current: Yes Resuscitation Status: Full Code Discussion: Discussed with patient. She says she is a full code and prefers to receive chest compressions, defibrillation or mechanical ventilation if the need arises. She says her , Endy Cardona is her surrogate medical decision maker.
[2019-04-27] MEDS: HEPARIN SOD (PORCINE) 5,000 UNIT/ML 1 ML VIAL SUBCUT SCH ×2 (14:48→21:01)
[2019-04-27] MEDS: METHYLPREDNISOLONE INJ 40 MG/1 ML SDV IV SCH ×2 (14:50→21:01)
[2019-04-27] MEDS ORDERED: INFLUENZA QUAD (6MOS+) 2019-20 VAC 0.5 ML SYR IM ONE (18:58)
[2019-04-28] MEDS: IPRATROPIUM/ALBUTEROL 0.5-2.5 MG/3 ML AMPUL NEB SCH ×6 (00:09→19:05)
[2019-04-28] MEDS: HEPARIN SOD (PORCINE) 5,000 UNIT/ML 1 ML VIAL SUBCUT SCH ×3 (05:39→21:51)
[2019-04-28] MEDS: METHYLPREDNISOLONE INJ 40 MG/1 ML SDV IV SCH ×3 (05:42→21:54)
[2019-04-28] MEDS ORDERED: (PENDING PHARMACY ID) (Zolpidem Tartrate [Ambien] 10 MG) PO PRN (12:11)
[2019-04-28] MEDS ORDERED: HYDROXYZINE PAMOATE 25 MG CAPSULE PO PRN (12:11)
[2019-04-28] MEDS ORDERED: ZOLPIDEM TARTRATE 5 MG TABLET PO PRN (12:24)
--- NOTE | 2019-04-28 13:26 | PDOC PROGRESS REPORT ---
Subjective Progress Note for:: 04/28/19 Subjective:: ARABELLA SINGLETON is a 44 year old female with a past medical history of asthma, depression, rheumatoid arthritis, GERD and iron deficiency anemia who presented with shortness of breath and wheezing. Patient was admitted for severe asthma exacerbation. She started on IV steroids and scheduled breathing treatments. No acute event overnight however this morning, she tried ambulating in the hallway and became very short of breath and tachypneic upon encounter. She says that overall her shortness of breath has slightly improved overnight. She denies chest pain. She has bilateral wheezing on examination slightly improved compared to yesterday. Reason For Visit: SEVERE ASTHMA EXACERBATION Physical Exam Vital Signs: Temp Pulse Resp BP Pulse Ox 97.8 F 114 H 18 118/51 L 95 04/28/19 10:00 04/28/19 12:27 04/28/19 12:27 04/28/19 10:00 04/28/19 12:27 Intake & Output 04/27/19 04/28/19 04/29/19 06:59 06:59 06:59 Intake Total 113 1320 Balance 113 1320 Weight 177 lb 7.554 oz General appearance: PRESENT: no acute distress, well-developed, well-nourished Head exam: PRESENT: atraumatic, normocephalic Eye exam: PRESENT: conjunctiva pink, EOMI, PERRLA. ABSENT: scleral icterus Ear exam: PRESENT: normal external ear exam Mouth exam: PRESENT: moist, tongue midline Neck exam: ABSENT: carotid bruit, JVD, lymphadenopathy, thyromegaly Respiratory exam: PRESENT: rhonchi, wheezes. ABSENT: rales Cardiovascular exam: PRESENT: RRR. ABSENT: diastolic murmur, rubs, systolic murmur Pulses: PRESENT: normal dorsalis pedis pul Vascular exam: PRESENT: normal capillary refill GI/Abdominal exam: PRESENT: normal bowel sounds, soft. ABSENT: distended, guarding, mass, organolmegaly, rebound, tenderness Rectal exam: PRESENT: deferred Neurological exam: PRESENT: alert, awake, oriented to person, oriented to place, oriented to time, oriented to situation, CN II-XII grossly intact. ABSENT: motor sensory deficit Results Laboratory Results: 04/27/19 06:02 04/27/19 06:02 Impressions: Chest X-Ray 04/27/19 00:00 IMPRESSION: No acute cardiopulmonary findings. Assessment and Plan - Diagnosis (1) Severe asthma with acute exacerbation Qualifiers: Asthma persistence: persistent Qualified Code(s): J45.51 - Severe persistent asthma with (acute) exacerbation Is this a current diagnosis for this admission?: Yes Plan: Slightly improved. Continue IV steroids and breathing treatments. Patient will be set up with Dr. Guerra so she can hopefully be resumed on omalizumab infusions. (2) GERD (gastroesophageal reflux disease) Qualifiers: Esophagitis presence: without esophagitis Qualified Code(s): K21.9 - Gastro-esophageal reflux disease without esophagitis Is this a current diagnosis for this admission?: Yes (3) Rheumatoid arthritis Qualifiers: Rheumatoid arthritis location: multiple sites Is this a current diagnosis for this admission?: Yes (4) Anemia Qualifiers: Anemia type: iron deficiency Is this a current diagnosis for this admission?: Yes Plan: Chronic from iron deficiency. - Time Time Spent with patient: 25-34 minutes
[2019-04-28] MEDS: ALPRAZOLAM 0.5 MG TABLET PO PRN (13:31)
[2019-04-28] MEDS: DULOXETINE HCL 30 MG CAPSULE.DR PO SCH (21:54)
[2019-04-29] MEDS: IPRATROPIUM/ALBUTEROL 0.5-2.5 MG/3 ML AMPUL NEB SCH ×4 (00:10→11:51)
[2019-04-29] MEDS: HEPARIN SOD (PORCINE) 5,000 UNIT/ML 1 ML VIAL SUBCUT SCH (05:19)
[2019-04-29] MEDS: METHYLPREDNISOLONE INJ 40 MG/1 ML SDV IV SCH (05:19)
[2019-04-29] MEDS: ALPRAZOLAM 0.5 MG TABLET PO PRN (08:39)
[2019-04-29] MEDS ORDERED: CETIRIZINE 10 MG TABLET PO SCH (10:00)
[2019-04-29] MEDS ORDERED: (PENDING PHARMACY ID) (Brexpiprazole [Rexulti] 1 MG) PO SCH (10:00)
[2019-04-29] MEDS: DULOXETINE HCL 30 MG CAPSULE.DR PO SCH (11:40)
[2019-04-29 12:05] VITALS: BP 98/41
--- NOTE | 2019-04-30 17:17 | PDOC DISCHARGE SUMMARY ---
Impression - Admit/DC Date/PCP Admission Date/Primary Care Provider: 04/27/19 11:21 ALLEGRA PICKETT DO Discharge Date: 04/29/19 - Discharge Diagnosis (1) Severe asthma with acute exacerbation Is this a current diagnosis for this admission?: Yes (2) GERD (gastroesophageal reflux disease) Is this a current diagnosis for this admission?: Yes (3) Rheumatoid arthritis Is this a current diagnosis for this admission?: Yes - Additional Information Resuscitation Status: Full Code Discharge Activity: Activity As Tolerated, Balance Activity w/Rest, Bedrest Referrals: ALLEGRA PICKETT DO [Primary Care Provider] - 05/04/19 4:00 pm Prescriptions: Prednisone [Deltasone 20 mg Tablet] 40 mg PO BID 5 Days #20 tablet Home Medications: Albuterol Sulfate [Proair HFA Inhalation Aerosol 8.5 gm MDI] 1 puff IH Q6HP PRN 04/27/19 Alprazolam [Xanax] 1 mg PO Q8 04/27/19 Brexpiprazole [Rexulti] 1 mg PO DAILY 04/27/19 Budesonide/Formoterol Fumarate [Symbicort HFA 160-4.5 mcg Inhaler 6 gm] 2 puff I H Q12 04/27/19 Cetirizine HCl [Zyrtec 10 mg Tablet] 10 mg PO DAILY 04/27/19 Duloxetine HCl [Cymbalta] 60 mg PO Q12 04/27/19 Hydroxyzine Pamoate [Vistaril 25 mg Capsule] 25 mg PO Q8HP PRN 04/27/19 Ibuprofen [Motrin 800 mg Tablet] 800 mg PO Q8HP PRN 04/27/19 Montelukast Sodium [Singulair 10 mg Tablet] 10 mg PO QPM 04/27/19 Tiotropium [place] [Spiriva Handihaler 5 Cap/Kit (18 Mcg/Cap)] 1 cap IH DAILY 04/27/19 Zolpidem Tartrate [Ambien] 10 mg PO HSP PRN 04/27/19 Prednisone 10 mg PO DAILY #0 04/29/19 Prednisone [Deltasone 20 mg Tablet] 40 mg PO BID 5 Days #20 tablet 04/29/19 History of Present Illiness History of Present Illness: ARABELLA SINGLETON is a 44 year old female with a past medical history of asthma, depression, rheumatoid arthritis, GERD and iron deficiency anemia who presented with shortness of breath and wheezing. Patient says that she has been having gradually progressive shortness of breath over the past 2 to 3 weeks. This is associated with increasing wheezes and moderately productive cough with yellowish phlegm. She denies fever or chills. Patient says that she was getting omalizumab infusions for her severe asthma and this has controlled it well. Unfortunately, she has been released under the care of Dr. Dave and hence has been off omalizumab for more than 2 months now. In the ER, she was noted to be tachypneic and had significant bilateral wheezes. She was given breathing treatments and IV steroids. She reported partial relief but still slightly tachypneic and wheezy upon encounter. Hospital Course Hospital Course: ARABELLA SINGLETON is a 44 year old female with a past medical history of asthma, depression, rheumatoid arthritis, GERD and iron deficiency anemia who presented with shortness of breath and wheezing. She is recently been discontinued on her omalizumab infusions which has controlled her severe asthma. Patient was admitted for severe asthma exacerbation. She started on IV steroids and scheduled breathing treatments. She did significantly improve with above treatments. She returned to her baseline and was able to ambulate the hallways on room air without any desaturation or acute issues. She was given a confirmed appointment with Dr. Guerra next week so she can be resumed on omalizumab infusions. She will be given 5 more days of prednisone. She will continue her inhaler regimen at home. Physical Exam Vital Signs: Temp Pulse Resp BP Pulse Ox 97.6 F 89 16 98/41 L 96 04/29/19 11:58 04/29/19 11:58 04/29/19 11:58 04/29/19 11:58 04/29/19 11:58 Intake & Output 04/29/19 04/30/19 05/01/19 06:59 06:59 06:59 Intake Total 450 Balance 450 General appearance: PRESENT: no acute distress, well-developed, well-nourished Head exam: PRESENT: atraumatic, normocephalic Eye exam: PRESENT: conjunctiva pink, EOMI, PERRLA. ABSENT: scleral icterus Ear exam: PRESENT: normal external ear exam Mouth exam: PRESENT: moist, tongue midline Neck exam: ABSENT: carotid bruit, JVD, lymphadenopathy, thyromegaly Respiratory exam: PRESENT: clear to auscultation masood. ABSENT: rales, rhonchi, wheezes Cardiovascular exam: PRESENT: RRR. ABSENT: diastolic murmur, rubs, systolic murmur Pulses: PRESENT: normal dorsalis pedis pul GI/Abdominal exam: PRESENT: normal bowel sounds, soft. ABSENT: distended, guarding, mass, organolmegaly, rebound, tenderness Rectal exam: PRESENT: deferred Extremities exam: PRESENT: full ROM. ABSENT: calf tenderness, clubbing, pedal edema Neurological exam: PRESENT: alert, awake, oriented to person, oriented to place, oriented to time, oriented to situation, CN II-XII grossly intact. ABSENT: motor sensory deficit Results Laboratory Results: WBC 9.5 10^3/uL (4.0-10.5) 04/27/19 06:02 RBC 4.40 10^6/uL (3.72-5.28) 04/27/19 06:02 Hgb 9.3 g/dL (12.0-15.5) L 04/27/19 06:02 Hct 29.6 % (36.0-47.0) L 04/27/19 06:02 MCV 67 fl (80-97) L 04/27/19 06:02 MCH 21.2 pg (27.0-33.4) L 04/27/19 06:02 MCHC 31.6 g/dL (32.0-36.0) L 04/27/19 06:02 RDW 16.8 % (11.5-14.0) H 04/27/19 06:02 Plt Count 432 10^3/uL (150-450) 04/27/19 06:02 Sodium 140.1 mmol/L (137-145) 04/27/19 06:02 Potassium 4.3 mmol/L (3.6-5.0) 04/27/19 06:02 Chloride 104 mmol/L (98-107) 04/27/19 06:02 Carbon Dioxide 23 mmol/L (22-30) 04/27/19 06:02 Anion Gap 13 (5-19) 04/27/19 06:02 BUN 7 mg/dL (7-20) 04/27/19 06:02 Creatinine 0.61 mg/dL (0.52-1.25) 04/27/19 06:02 Est GFR ( Amer) > 60 (>60) 04/27/19 06:02 Est GFR (MDRD) Non-Af > 60 (>60) 04/27/19 06:02 Glucose 127 mg/dL (75-110) H 04/27/19 06:02 Calcium 9.0 mg/dL (8.4-10.2) 04/27/19 06:02 Impressions: Chest X-Ray 04/27/19 00:00 IMPRESSION: No acute cardiopulmonary findings. Stroke Is this a Stroke Patient?: No Acute Heart Failure - Is this a Heart Failure Patient?: No
== END 2019-04-29 12:56 | disposition home or self-care (01) ==
LOC: ER 05:09 → EH 11:21 → INTOOBSV 11:21 → 4S 17:45
PROVIDERS: ADMIT Internal Medicine; ATTEND Internal Medicine
DX: J45.51 Severe persistent asthma with (acute) exacerbation (principal); K21.9 Gastro-esophageal reflux disease without esophagitis; M06.89 Other specified rheumatoid arthritis, multiple sites; F32.9 Major depressive disorder, single episode, unspecified; D50.9 Iron deficiency anemia, unspecified; R00.0 Tachycardia, unspecified; R09.02 Hypoxemia; R68.83 Chills (without fever); R11.10 Vomiting, unspecified; Z79.899 Other long term (current) drug therapy; Z79.51 Long term (current) use of inhaled steroids; Z79.52 Long term (current) use of systemic steroids; Z82.5 Family history of asthma and other chronic lower respiratory diseases; Z23 Encounter for immunization
CPT/HCPCS: 93005; 94640 ×5; 99291; 96375; 96365; 36415; 85027; 80048; 71045; 90686; 93010; G0378 ×4; A9270 ×9; J2920 ×3; J2930; J3475; J3490 ×3; J7620

== ENCOUNTER → 2019-05-06 | Outpatient (CLI) | payer MEDICARE, MEDICAID ==
[2019-05-06 12:23] LABS: ABSOLUTE BASOPHILS # (AUTO) 0.1 10^3/uL (0.0-0.2); ABSOLUTE EOSINOPHILS # (AUTO) 0.3 10^3/uL (0.0-0.6); ABSOLUTE LYMPHOCYTES (AUTO) 4.1 10^3/uL (0.5-4.7); ABSOLUTE MONOCYTES (AUTO) 0.8 10^3/uL (0.1-1.4); ABSOLUTE NEUT (AUTO) 6.3 10^3/uL (1.7-8.2); BASOPHILS % (AUTO) 0.5 % (0-2); EOSINOPHILS % (AUTO) 2.5 % (0-6); HEMATOCRIT 30.5 % (36.0-47.0); HEMOGLOBIN 9.6 g/dL (12.0-15.5); LYMPHOCYTES % (AUTO) 35.6 % (13-45); MEAN CORPUSCULAR HEMOGLOBIN 20.8 pg (27.0-33.4); MEAN CORPUSCULAR HGB CONC 31.4 g/dL (32.0-36.0); MEAN CORPUSCULAR VOLUME 66 fl (80-97); PLATELET COUNT 451 10^3/uL (150-450); RED BLOOD COUNT 4.59 10^6/uL (3.72-5.28); RED CELL DISTRIBUTION WIDTH 16.8 % (11.5-14.0); SEGMENTED NEUTROPHILS % (AUTO) 54.4 % (42-78); TOTAL CELLS COUNTED % (AUTO) 100 %; WHITE BLOOD COUNT 11.5 10^3/uL (4.0-10.5)
[2019-05-06 12:45] LABS: ANISOCYTOSIS 1+; HYPOCHROMASIA 3+; OVALOCYTES 1+; PLATELET COMMENT INCREASED; POIKILOCYTOSIS 1+; TEAR DROP CELLS SLIGHT
== END ==
LOC: OD 11:32
PROVIDERS: ATTEND Registered Nurse
DX: J45.50 Severe persistent asthma, uncomplicated (principal)
CPT/HCPCS: 36415; 82785; 85025; 86003

== ENCOUNTER → 2019-06-23 | Outpatient (CLI) | payer MEDICARE, MEDICAID | LOC: LAB 17:24 | PROVIDERS: ATTEND Family Medicine | DX: D64.9 Anemia, unspecified (principal); R73.09 Other abnormal glucose ==

== ENCOUNTER → 2019-09-05 | Outpatient (CLI) | payer MEDICARE, MEDICAID ==
--- NOTE | 2019-09-05 14:52 | ER RDC ASSESSMENT REPORT ---
Intake - In the Last 14 days Have you traveled outside [place]?: No Have you been in close contact with someone CONFIRMED: No Worked in Healthcare?: No - Symptoms Subjective Fever([place] feverish): Yes Chills: Yes Muscule Aches: No Runny Nose: No Sore Throat: Yes Cough (New or worsening chronic cough): Yes Shortness of breath: Yes Nausea or Vomiting: No Headache: Yes Abdominal Pain: No Diarrhea(3 or more loose stools in last 24 hours): No - Do you have any of the following Chronic lung disease: Asthma or emphysema or COPD: Yes Chronic Lung Disease Comment: copd Diabetes: No High Blood Pressure: No Cardiovascular Disease: No Chronic Kidney Disease: No Chronic Liver Disease: No Chronic blood disorder like Sickle Cell Disease: No Weak immune system due to disease or medication: Yes Neurologic condition that limits movement: No Developmental delay - Moderate to Severe: No Recent (within past 2 weeks) or current : No Morbid Obesity (>100 pounds over ideal weight): No - Objective Temperature: 97 F Pulse Rate: 105 Blood Pressure: 93/56 O2 Sat by Pulse Oximetry: 99 Objective: Given above, testing performed: If Testing Performed: Test Specimen Type Sent to Disposition: Home; Selfcare General - General Chief Complaint: Shortness Of Breath Time Seen by Provider: 09/05/19 15:18 Mode of Arrival: Ambulatory Information source: Patient - HPI Onset: Other - several dayls Onset/Duration: Intermittent Quality of pain: No pain Severity: None Pain Level: Denies Associated symptoms: Chills, Nonproductive cough, Fever, Headache, Shortness of breath, Sore throat Exacerbated by: Denies Relieved by: Denies Similar symptoms previously: Yes Recently seen / treated by doctor: Yes - Related Data Allergies/Adverse Reactions: cefuroxime axetil [From Ceftin] Allergy (Intermediate, Verified 12/26/18 16:18) Hives voriconazole [From Vfend] Adverse Reaction (Mild, Verified 12/26/18 16:18) Skin Redness Past Medical History - General Information source: Patient - Social History Smoking Status: Never Smoker Lives with: Family Family History: COPD - Father was re examiner in [place], CVA - Mother, DM - Her other , Other - Sisters with rheumatoid arthritis and cervical cancer each. Alpha-1 antitrypsin deficiency mother. 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 Endocrine Medical History: Reports: None Renal/ Medical History: Reports: None Malignancy Medical History: Reports: None GI Medical History: Reports: Hx Gastroesophageal Reflux Disease Musculoskeletal Medical History: Reports Hx Arthritis - RA Skin Medical History: Reports None Psychiatric Medical History: Reports: Hx Anxiety, Hx Depression - anxiety severe Traumatic Medical History: Reports: None Past Surgical History: Reports: Hx Appendectomy, Hx Section - x 3, Hx Tubal Ligation, Other - Biopsy left neck mass benign, eye surgery, bronchoscopy at [place] Physical Exam - Notes Notes: PHYSICAL EXAMINATION: GENERAL: Well-appearing, well-nourished and in no acute distress. HEAD: Atraumatic, normocephalic. EYES: Pupils equal round extraocular movements intact, conjunctiva are normal. ENT: Nares patent nasal sinus drainage with postnasal drip noted NECK: Normal range of motion LUNGS: No respiratory distress lungs clear respirations regular nonlabored Musculoskeletal: Normal range of motion NEUROLOGICAL: Normal speech, normal gait. PSYCH: Normal mood, normal affect. SKIN: Warm, Dry, normal turgor, no rashes or lesions noted. Diagnostic Results Laboratory Results: Influenza a and B and strep negative covid 19 pending Patient Education/Counseling Counseling/Education: Patient was provided with discharge information including: As a person under investigation for Covid 19, the [place] department of Health and Human Services, division of public health advises you to adhere to the following guidance until your test results are reported to you. If your test result is positive, you will receive additional information from your provider and your local health department at that time. Remain at home until you are cleared by the health provider or public health authorities. Keep a log of visitors to your home, notify any visitors to your home of your isolation status. If you plan to move to a new address or leave the county, notify the local health department in your County. Call your doctor or seek care if you have an urgent medical need. Before seeking medical care, call ahead to get instructions from the provider before arriving at the medical office clinic or hospital. Notify them that you are being tested for the virus that causes Covid 19 so that arrangements can be made, as necessary, to prevent transmission to others in the healthcare setting. Next, notify the local health department in your county. If a medical emergency arises and you need to call 911, inform the first responders that you are being tested for the virus that causes Covid 19. Next, notify the local health department in your county. RDC Discharge - Discharge Clinical Impression: Viral respiratory illness, covid 19 testing Condition: Stable Disposition: Home; Selfcare
[2019-09-05 15:21] VITALS: BP 93/56
[2019-09-05 16:02] LABS: A TYPE INFLUENZA AG NEGATIVE (NEGATIVE); B INFLUENZA AG NEGATIVE (NEGATIVE)
== END ==
LOC: RDC 14:29
PROVIDERS: ATTEND Nurse Practitioner Family
DX: B34.9 Viral infection, unspecified (principal); Z20.828 Contact with and (suspected) exposure to other viral communicable diseases; R06.02 Shortness of breath; R50.9 Fever, unspecified; R05 Cough; R51 Headache; J02.9 Acute pharyngitis, unspecified; J44.9 Chronic obstructive pulmonary disease, unspecified; K21.9 Gastro-esophageal reflux disease without esophagitis; M06.9 Rheumatoid arthritis, unspecified
CPT/HCPCS: 87070; 87880; 87804; U0003; G0463; 87635; 99211

== ENCOUNTER → 2019-09-16 | Outpatient (CLI) | payer MEDICARE, MEDICAID ==
[2019-09-16 16:01] LABS: ABSOLUTE LYMPHOCYTES (AUTO) 1.8 10^3/uL (0.5-4.7); ABSOLUTE MONOCYTES (AUTO) 0.5 10^3/uL (0.1-1.4); ABSOLUTE NEUT (AUTO) 6.8 10^3/uL (1.7-8.2); BASOPHILS % (AUTO) 0.4 % (0-2); EOSINOPHILS % (AUTO) 0.5 % (0-6); HEMATOCRIT 27.3 % (36.0-47.0); HEMOGLOBIN 8.4 g/dL (12.0-15.5); LYMPHOCYTES % (AUTO) 20.1 % (13-45); MEAN CORPUSCULAR HEMOGLOBIN 19.8 pg (27.0-33.4); MEAN CORPUSCULAR HGB CONC 30.9 g/dL (32.0-36.0); MONOCYTES % (AUTO) 5.1 % (3-13); PLATELET COUNT 542 10^3/uL (150-450); RED BLOOD COUNT 4.27 10^6/uL (3.72-5.28); RED CELL DISTRIBUTION WIDTH 17.9 % (11.5-14.0); SEGMENTED NEUTROPHILS % (AUTO) 73.9 % (42-78); TOTAL CELLS COUNTED % (AUTO) 100 %; WHITE BLOOD COUNT 9.1 10^3/uL (4.0-10.5)
[2019-09-16 16:25] LABS: MEAN CORPUSCULAR VOLUME 64 fl (80-97)
[2019-09-16 16:28] LABS: ANISOCYTOSIS 1+; HYPOCHROMASIA 1+; OVALOCYTES SLIGHT; POIKILOCYTOSIS SLIGHT; POLYCHROMASIA SLIGHT; TEAR DROP CELLS SLIGHT
[2019-09-16 16:29] LABS: PLATELET COMMENT INCREASED
[2019-09-16 16:31] LABS: ALKALINE PHOSPHATASE 69 U/L (38-126); ANION GAP 8 (5-19); ASPARTATE AMINO TRANSFERASE 24 U/L (14-36); BILIRUBIN,TOTAL 0.3 mg/dL (0.2-1.3); BLOOD UREA NITROGEN 14 mg/dL (7-20); CARBON DIOXIDE 29 mmol/L (22-30); CHLORIDE 98 mmol/L (98-107); CHOLESTEROL 223.14 mg/dL (0-200); GLUCOSE 104 mg/dL (75-110); IRON(TIBC) 20.9 ug/dL (37-170); POTASSIUM 4.1 mmol/L (3.6-5.0); TOTAL PROTEIN 7.1 g/dL (6.3-8.2); TRIGLYCERIDES 85 mg/dL (<150)
[2019-09-16 16:42] LABS: DIRECT LDL 113 mg/dL (<100)
[2019-09-16 16:46] LABS: FREE T4 (FREE THYROXINE) 0.98 ng/dL (0.78-2.19)
[2019-09-16 17:00] LABS: THYROID STIMULATING HORMONE 0.6 uIU/mL (0.47-4.68)
[2019-09-16 17:04] LABS: FERRITIN 3.97 ng/mL (6.2-137.0)
[2019-09-19 11:39] LABS: PATH REVIEW PATHOLOGIST REVIEWED
== END ==
LOC: OD 15:13
PROVIDERS: ATTEND Nurse Practitioner Family
DX: D64.9 Anemia, unspecified (principal); E66.9 Obesity, unspecified; R73.09 Other abnormal glucose
CPT/HCPCS: 36415; 80053; 80061; 82728; 83036; 83540; 83550; 84439; 84443; 85025

== ENCOUNTER → 2019-12-01 | Outpatient (CLI) | payer MEDICARE, MEDICAID ==
[2019-12-01 14:09] LABS: ABSOLUTE BASOPHILS # (AUTO) 0.1 10^3/uL (0.0-0.2); ABSOLUTE EOSINOPHILS # (AUTO) 0.2 10^3/uL (0.0-0.6); ABSOLUTE LYMPHOCYTES (AUTO) 2.8 10^3/uL (0.5-4.7); ABSOLUTE MONOCYTES (AUTO) 0.6 10^3/uL (0.1-1.4); ABSOLUTE NEUT (AUTO) 3.8 10^3/uL (1.7-8.2); BASOPHILS % (AUTO) 0.9 % (0-2); EOSINOPHILS % (AUTO) 2.9 % (0-6); HEMATOCRIT 36.7 % (36.0-47.0); HEMOGLOBIN 12.1 g/dL (12.0-15.5); LYMPHOCYTES % (AUTO) 36.7 % (13-45); MEAN CORPUSCULAR HEMOGLOBIN 25.6 pg (27.0-33.4); MEAN CORPUSCULAR HGB CONC 32.9 g/dL (32.0-36.0); MEAN CORPUSCULAR VOLUME 78 fl (80-97); MONOCYTES % (AUTO) 8.4 % (3-13); PLATELET COUNT 321 10^3/uL (150-450); RED BLOOD COUNT 4.72 10^6/uL (3.72-5.28); RED CELL DISTRIBUTION WIDTH 26.6 % (11.5-14.0); SEGMENTED NEUTROPHILS % (AUTO) 51.1 % (42-78); TOTAL CELLS COUNTED % (AUTO) 100 %; WHITE BLOOD COUNT 7.5 10^3/uL (4.0-10.5)
[2019-12-01 14:32] LABS: ANISOCYTOSIS 3+; OVALOCYTES 1+; PLATELET COMMENT ADEQUATE
== END ==
LOC: OD 13:34
PROVIDERS: ATTEND Internal Medicine Pulmonary Disease
DX: J45.50 Severe persistent asthma, uncomplicated (principal)
CPT/HCPCS: 36415; 85025; 86003

== ENCOUNTER 2020-05-15 08:42 | Emergency (ER) | payer MEDICARE, MEDICAID ==
--- NOTE | 2020-05-15 09:28 | ER Document Report ---
ED Respiratory Problem - General Chief Complaint: Shortness Of Breath Stated Complaint: SHORT OF BREATH,DIARRHEA Time Seen by Provider: 05/15/20 09:22 Primary Care Provider: ALLEGRA PICKETT DO [Primary Care Provider] - Follow up as needed Mode of Arrival: Ambulatory Information source: Patient Notes: 05/15/20 09:02 - ED PCT Note by HOLGER SANDERS Acct Num: [id number] : 1975 Patient Age: 45 pt brought back to ed room 32 to obtain vital signs, pt asked to use bathroom first; pads provided MY NOTES 45-year-old female arrives with chief complaint of diffuse myalgias yellow-green productive cough approximately nausea vomiting and diarrhea for least 24 hours dry mouth diffuse myalgias fever and chills cephalgia. Patient denies any nuchal rigidity. Patient reports she is a positive blood type and she tested positive on 04 May and was doing well for COVID-19 however over the weekend she was cleaning her house with [employer] and began to have a paroxysmal cough with wheezing thereafter. Her 16-year-old high school son and are negative for their Covid test. They have no symptoms only the patient. Patient denies any pets that are sick denies any recent travel. Patient has poor appetite no skin lesions TRAVEL OUTSIDE OF THE U[place] IN LAST 30 DAYS: No - HPI Patient complains to provider of: Cough Onset: This morning Duration: Better Initiating Event: Exposure to chemicals - [employer]orox cleaning materials Severity: Mild Pain Level: 2 - Related Data Allergies/Adverse Reactions: cefuroxime axetil [From Ceftin] Allergy (Intermediate, Verified 05/15/20 08:59) Hives Pork/Porcine Containing Products Allergy (Mild, Verified 05/15/20 08:59) voriconazole [From Vfend] Adverse Reaction (Mild, Verified 05/15/20 08:59) Skin Redness Past Medical History - General Information source: Patient - Social History Smoking Status: Never Smoker Cigarette use (# per day): No Chew tobacco use (# tins/day): No Smoking Education Provided: No Frequency of alcohol use: None Lives with: Family Family History: COPD - Father was underground miner in [place], CVA - Mother, DM - Her other , Other - Sisters with rheumatoid arthritis and cervical cancer each. Alpha-1 antitrypsin deficiency mother. 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 Denies: Hx Pacemaker - Immunizations Immunizations up to date: Yes Hx Diphtheria, Pertussis, Tetanus Vaccination: No Hx Pneumococcal Vaccination: 03/25/13 Review of Systems - Review of Systems Constitutional: See HPI, Malaise, Weakness, Recent illness EENT: No symptoms reported Cardiovascular: No symptoms reported, Dyspnea Respiratory: See HPI, Cough Gastrointestinal: See HPI, Diarrhea, Nausea, Vomiting Genitourinary: No symptoms reported Female Genitourinary: No symptoms reported Musculoskeletal: No symptoms reported Skin: No symptoms reported Hematologic/Lymphatic: No symptoms reported Neurological/Psychological: No symptoms reported -: Yes All other systems reviewed and negative Physical Exam - Vital signs Vitals: Temp Pulse Resp BP Pulse Ox 98.2 F 109 H 18 106/51 L 98 05/15/20 09:21 05/15/20 09:21 05/15/20 09:21 05/15/20 09:21 05/15/20 09:21 Interpretation: Normal - General General appearance: Appears well, Alert - HEENT Head: Normocephalic, Atraumatic Eyes: Normal Pupils: PERRL - Respiratory Respiratory status: No respiratory distress Chest status: Nontender Breath sounds: Normal Chest palpation: Normal - Cardiovascular Rhythm: Tachycardia Heart sounds: Normal auscultation Murmur: No - Abdominal Inspection: Normal Distension: No distension Bowel sounds: Normal Tenderness: Nontender Organomegaly: No organomegaly - Rectal Hemorrhoids: Other - Deferred - Genitourinary Bimanuel exam: Other - Deferred - Back Back: Normal, Nontender - Extremities General upper extremity: Normal inspection, Nontender, Normal color, Normal ROM, Normal temperature General lower extremity: Normal inspection, Nontender, Normal color, Normal ROM, Normal temperature, Normal weight bearing. No: Adonay's sign - Neurological Neuro grossly intact: Yes Cognition: Normal Orientation: AAOx4 Agnes Coma Scale Eye Opening: Spontaneous Agnes Coma Scale Verbal: Oriented Agnes Coma Scale Motor: Obeys Commands Agnes Coma Scale Total: 15 Speech: Normal Motor strength normal: LUE, RUE, LLE, RLE Sensory: Normal - Psychological Associated symptoms: Normal affect, Normal mood - Skin Skin Temperature: Warm Skin Moisture: Dry Skin Color: Normal Course - Vital Signs Vital signs: Temp Pulse Resp BP Pulse Ox 98.2 F 109 H 18 106/51 L 98 05/15/20 09:26 05/15/20 09:21 05/15/20 09:21 05/15/20 09:21 05/15/20 09:21 - Laboratory Results Result Diagrams: 05/15/20 10:16 05/15/20 10:16 Laboratory Results Interpreted: 05/15/20 10:16 Urine Protein 30 H Urine Blood SMALL H Critical Laboratory Results Reviewed: No Critical Results Attending or Supervising Physician who Reviewed Labs: PEDRO TAMAYO JR - Radiology Results Critical Radiology Results Reviewed: No Critical Results Attending or Supervising Physician who Reviewed Radiology: PEDRO TAMAYO JR Critical Care Note - Critical Care Note Comments: I discussed this case and lab and x-ray findings with the patient and she appeared to understand. Discharge - Discharge Clinical Impression: COVID-19, Bronchitis, Gastroenteritis and colitis, viral Acute bronchitis Qualifiers: Bronchitis organism: unspecified organism Qualified Code(s): J20.9 - Acute bronchitis, unspecified Condition: Stable Disposition: HOME, SELF-CARE Additional Instructions: Follow-up with personal doctor this week return to ER as needed or if symptoms worsen. Take medicines as directed encourage fluids. Avoid milk and meat products for least 48 hours and try advance to brat diet bananas rice applesauce toast carmela venkata crackers until solid foods are acceptable. Prescriptions: Hydrocodone Bit/Homatropine [Hycodan Syrup 5-1.5 mg/5 ml Ud Cup] 5 ml PO Q4HP PRN #120 ml PRN Reason: Dexamethasone [Decadron 4 Mg Tablet] 4 mg PO DAILY #5 tablet Famotidine [Pepcid 20 mg Tablet] 20 mg PO DAILY #12 tablet Promethazine HCl [Phenergan 25 mg Tablet] 25 mg PO BID 5 Days #10 tablet Azithromycin [Zithromax 250 mg Tablet] 250 mg PO ASDIR PRN #6 tablet PRN Reason: Referrals: ALLEGRA PICKETT DO [Primary Care Provider] - Follow up as needed
[2020-05-15] MEDS ORDERED: NORMAL SALINE 1000 ML 1,000 ML IV PRN (09:59)
[2020-05-15] MEDS ORDERED: DEXAMETHASONE SOD PHOS INJ 10 MG/1 ML VIAL IV ONE (09:59)
[2020-05-15] MEDS ORDERED: AZITHROMYCIN INJ 500 MG VIAL IV ONE (09:59)
[2020-05-15] MEDS ORDERED: HYDROMORPHONE HCL INJ/PF 2 MG/ML AMPULE IV ONE (10:00)
--- NOTE | 2020-05-15 10:31 | RADIOLOGY REPORT (SQ) ---
EXAM DESCRIPTION: ACUTE ABDOMEN SERIES IMAGES COMPLETED DATE/TIME: 05/15/2020 10:22 am REASON FOR STUDY: covid pos COMPARISON: 02/16/2014. NUMBER OF VIEWS: Three views. TECHNIQUE: Frontal chest, supine abdomen and upright/decubitus abdomen radiographic images acquired. LIMITATIONS: None. FINDINGS: CHEST: Lungs clear of infiltrates. FREE AIR: None. No abnormal gas collections. BOWEL GAS PATTERN: Nonobstructive pattern. No dilated loops or air fluid levels. CALCIFICATIONS: No suspicious calcifications. HARDWARE: None in the abdomen. SOFT TISSUES: No gross mass or suggestion of organomegaly. BONES: No acute fracture. No worrisome bone lesions. OTHER: No other significant finding. IMPRESSION: NO RADIOGRAPHIC EVIDENCE FOR ACUTE ABDOMINAL DISEASE. TECHNICAL DOCUMENTATION: JOB ID: [id number] [employer]- All Rights Reserved Reading location - IP/workstation name: [email or web address]
[2020-05-15 10:41] LABS: ABSOLUTE EOSINOPHILS # (AUTO) 0.2 10^3/uL (0.0-0.6); ABSOLUTE LYMPHOCYTES (AUTO) 2.2 10^3/uL (0.5-4.7); ABSOLUTE MONOCYTES (AUTO) 0.7 10^3/uL (0.1-1.4); ABSOLUTE NEUT (AUTO) 5.7 10^3/uL (1.7-8.2); BASOPHILS % (AUTO) 0.5 % (0-2); EOSINOPHILS % (AUTO) 2.8 % (0-6); HEMATOCRIT 40.2 % (36.0-47.0); INTERNATIONAL RATION (INR) 0.87; LYMPHOCYTES % (AUTO) 24.4 % (13-45); MEAN CORPUSCULAR HEMOGLOBIN 29.6 pg (27.0-33.4); MEAN CORPUSCULAR HGB CONC 34.8 g/dL (32.0-36.0); MEAN CORPUSCULAR VOLUME 85 fl (80-97); MONOCYTES % (AUTO) 7.6 % (3-13); PLATELET COUNT 322 10^3/uL (150-450); PROTHROMBIN TIME 12.1 SEC (11.4-15.4); RED BLOOD COUNT 4.73 10^6/uL (3.72-5.28); RED CELL DISTRIBUTION WIDTH 13.5 % (11.5-14.0); SEGMENTED NEUTROPHILS % (AUTO) 64.7 % (42-78); TOTAL CELLS COUNTED % (AUTO) 100 %; WHITE BLOOD COUNT 8.8 10^3/uL (4.0-10.5)
[2020-05-15 10:42] LABS: APPEARANCE,URINE SLIGHTLY-CLOUDY; BILIRUBIN,URINE NEGATIVE (NEGATIVE); COLOR,URINE YELLOW; GLUCOSE, URINE NEGATIVE (NEGATIVE); KETONES,URINE NEGATIVE (NEGATIVE); LEUKOCYTE ESTERASE,URINE NEGATIVE (NEGATIVE); NITRITE,URINE NEGATIVE (NEGATIVE); PROTEIN,URINE 30 mg/dL (NEGATIVE); UROBILINOGEN,URINE NEGATIVE mg/dL (<2.0)
[2020-05-15 11:04] LABS: ALBUMIN 4.2 g/dL (3.5-5.0); ALKALINE PHOSPHATASE 73 U/L (38-126); ANION GAP 6 (5-19); ASPARTATE AMINO TRANSFERASE 34 U/L (14-36); BILIRUBIN,DIRECT 0.2 mg/dL (0.0-0.4); BILIRUBIN,TOTAL 0.5 mg/dL (0.2-1.3); BLOOD UREA NITROGEN 11 mg/dL (7-20); CALCIUM 9.3 mg/dL (8.4-10.2); CARBON DIOXIDE 28 mmol/L (22-30); CHLORIDE 103 mmol/L (98-107); GLUCOSE 107 mg/dL (75-110); POTASSIUM 4.4 mmol/L (3.6-5.0); TOTAL PROTEIN 7.7 g/dL (6.3-8.2)
[2020-05-15 11:17] LABS: NT PRO BNP < 11 pg/mL (<125); TROPONIN I < 0.012 ng/mL
[2020-05-15 14:34] VITALS: BP 119/62
== END 2020-05-15 14:53 | disposition home or self-care (01) ==
LOC: ER 08:42
DX: U07.1 COVID-19 (principal); J40 Bronchitis, not specified as acute or chronic; A08.4 Viral intestinal infection, unspecified; R06.02 Shortness of breath
CPT/HCPCS: 99284; 96360; 36415; 87040; 87086; 83605; 85025; 85610; 80053; 81001; 84484; 83880; 74022; J1170; J7030; J0456; J1100

== ENCOUNTER 2020-06-12 02:54 | Inpatient (IN) | payer MEDICARE, MEDICAID ==
[2020-06-12] MEDS ORDERED: IPRATROPIUM/ALBUTEROL 0.5-2.5 MG/3 ML AMPUL NEB ONE (02:56)
[2020-06-12] MEDS ORDERED: METHYLPREDNISOLONE INJ 125 MG/2 ML SDV IV ONE (02:56)
[2020-06-12] MEDS: ALBUTEROL SULFATE 0.083% NEB 2.5 MG/3 ML AMPUL NEB SCH ×2 (03:03→03:49)
[2020-06-12] MEDS ORDERED: MAGNESIUM SULFATE/D5W 2 GM/200 ML RTUPB IV ONE (03:04)
[2020-06-12] MEDS ORDERED: FAMOTIDINE INJ/PF 20 MG/2 ML SDV IV ONE ×2 (03:07→03:23)
[2020-06-12] MEDS ORDERED: NORMAL SALINE 1000 ML 1,000 ML IV ONE (03:15)
[2020-06-12] MEDS ORDERED: ONDANSETRON HCL INJ/PF 4 MG/2 ML SDV IV ONE (03:16)
--- NOTE | 2020-06-12 03:17 | ER Document Report ---
ED General - General Stated Complaint: VOMITING,COUGHING,TROUBLE BREATHING Primary Care Provider: ALLEGRA PICKETT DO [Primary Care Provider] - Follow up as needed TRAVEL OUTSIDE OF THE [place].S[place] IN LAST 30 DAYS: No - Related Data Allergies/Adverse Reactions: cefuroxime axetil [From Ceftin] Allergy (Intermediate, Verified 05/15/20 08:59) Hives Pork/Porcine Containing Products Allergy (Mild, Verified 05/15/20 08:59) voriconazole [From Vfend] Adverse Reaction (Mild, Verified 05/15/20 08:59) Skin Redness Past Medical History - Social History Family History: COPD - Father was yarn examiner in [place], CVA - Mother, DM - Her other , Other - Sisters with rheumatoid arthritis and cervical cancer each. Alpha-1 antitrypsin deficiency mother. 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 Denies: Hx Pacemaker - Immunizations Immunizations up to date: Yes Hx Diphtheria, Pertussis, Tetanus Vaccination: No Hx Pneumococcal Vaccination: 03/25/13 Physical Exam - Vital signs Vitals: Temp 97.5 F 06/12/20 02:55 Course - Re-evaluation Re-evalutation: 06/12/20 04:29 - Vital Signs Vital signs: Temp Pulse Resp BP Pulse Ox 97.5 F 18 125/68 100 06/12/20 02:56 06/12/20 04:01 06/12/20 04:01 06/12/20 04:01 - Laboratory Results Result Diagrams: 06/12/20 02:56 06/12/20 02:56 Laboratory Results Interpreted: 06/12/20 06/12/20 02:56 02:56 Lymph % (Auto) 47.0 H Eos % (Auto) 9.2 H Absolute Eos (auto) 0.8 H Seg Neutrophils % 36.2 L Glucose 123 H Discharge - Discharge Referrals: ALLEGRA PICKETT DO [Primary Care Provider] - Follow up as needed
[2020-06-12 03:21] LABS: ABSOLUTE BASOPHILS # (AUTO) 0.1 10^3/uL (0.0-0.2); ABSOLUTE EOSINOPHILS # (AUTO) 0.8 10^3/uL (0.0-0.6); ABSOLUTE LYMPHOCYTES (AUTO) 4.2 10^3/uL (0.5-4.7); ABSOLUTE MONOCYTES (AUTO) 0.6 10^3/uL (0.1-1.4); ABSOLUTE NEUT (AUTO) 3.2 10^3/uL (1.7-8.2); BASOPHILS % (AUTO) 0.7 % (0-2); EOSINOPHILS % (AUTO) 9.2 % (0-6); HEMATOCRIT 40.4 % (36.0-47.0); HEMOGLOBIN 13.7 g/dL (12.0-15.5); MEAN CORPUSCULAR HEMOGLOBIN 28.9 pg (27.0-33.4); MEAN CORPUSCULAR VOLUME 85 fl (80-97); MONOCYTES % (AUTO) 6.9 % (3-13); PLATELET COUNT 409 10^3/uL (150-450); RED BLOOD COUNT 4.75 10^6/uL (3.72-5.28); SEGMENTED NEUTROPHILS % (AUTO) 36.2 % (42-78); TOTAL CELLS COUNTED % (AUTO) 100 %; WHITE BLOOD COUNT 8.9 10^3/uL (4.0-10.5)
[2020-06-12] MEDS ORDERED: ACETAMINOPHEN 1,000 MG/100 ML RTUPB IV ONE (03:23)
--- NOTE | 2020-06-12 03:23 | ER Document Report ---
ED General - General Stated Complaint: VOMITING,COUGHING,TROUBLE BREATHING Primary Care Provider: ALLEGRA PICKETT DO [Primary Care Provider] - Follow up as needed Notes: 45-year-old female with history of asthma, recent COVID-19 infection few weeks ago presents with shortness of breath worse over the past approximately 4 days. Patient says that she was diagnosed with Covid then started having shortness of breath and then improved with her right leg recovered and then got worse again 5 days ago. Has had numerous episodes of nonbloody nonbilious emesis and nonblo telly nonbilious stool with some vague generalized abdominal discomfort over the past several days. Patient took albuterol inhaler 4 times just prior to arrival without relief so came to the ED. Patient denies fever, chest pain, leg swelling, prior intubations. History limited by acute respiratory distress. TRAVEL OUTSIDE OF THE [place] IN LAST 30 DAYS: No - Related Data Allergies/Adverse Reactions: cefuroxime axetil [From Ceftin] Allergy (Intermediate, Verified 05/15/20 08:59) Hives Pork/Porcine Containing Products Allergy (Mild, Verified 05/15/20 08:59) voriconazole [From Vfend] Adverse Reaction (Mild, Verified 05/15/20 08:59) Skin Redness Past Medical History - General Information source: Patient, [facility] Records - Social History Smoking Status: Unknown if Ever Smoked Family History: COPD - Father was polygraph examiner in [place], CVA - Mother, DM - Her other , Other - Sisters with rheumatoid arthritis and cervical cancer each. Alpha-1 antitrypsin deficiency mother. 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 Denies: Hx Pacemaker - Immunizations Immunizations up to date: Yes Hx Diphtheria, Pertussis, Tetanus Vaccination: No Hx Pneumococcal Vaccination: 03/25/13 Review of Systems - Review of Systems -: Yes ROS unobtainable due to patient's medical condition - Respiratory distress Physical Exam - Vital signs Vitals: Temp 97.5 F 06/12/20 02:55 - Notes Notes: PHYSICAL EXAMINATION: GENERAL: Uncomfortable appearing patient in acute respiratory distress HEAD: Atraumatic, normocephalic. EYES: Pupils equal round and appropriate constriction, sclera anicteric, conjunctiva are normal. ENT: nares patent, dry mucous membranes, no intraoral/pharyngeal edema, normal voice NECK: Normal range of motion, supple without lymphadenopathy LUNGS: Speaking 1-2 words at a time, accessory muscle use, tripoding, poor air movement, faint expiratory wheezing bilaterally, lung sounds symmetric, no drooling HEART: Tachycardic with regular rhythm, no murmurs ABDOMEN: Soft, nontender, no guarding, no masses, no CVAT EXTREMITIES: Normal range of motion, no pitting or edema. No cyanosis. NEUROLOGICAL: Awake, alert, moves all extremities spontaneously. SKIN: Warm, Dry, normal turgor, no rashes or lesions noted. Course - Re-evaluation Re-evalutation: 06/12/20 03:00 Patient in acute respiratory distress, poor air movement on auscultation, called for bipap 06/12/20 03:17 RN Dot and [facility] Angie called respiratory again and asked that they bring BiPAP 06/12/20 03:29 Patient feels significantly improved on BiPAP, now mildly tachypneic, work of breathing dramatically improved, patient states she feels "amazing", with BiPAP and treatments patient's air movement has significantly improved, still has expiratory wheezing bilaterally. We will continue to monitor. Given severe presentation called hospitalist Dr. Nelson for admission. No emergent findings on labs. Heart rate has radically improved with treating dyspnea and fluid bolus. The patient was evaluated during the global COVID-19 pandemic and that diagnosis was suspected/considered upon their initial presentation. Their evaluation, treatment and testing was consistent with current guidelines for patients who present with complaints or symptoms that may be related to COVID-19. 06/12/20 05:37 Patient continues to feel improved on BiPAP, she took it off briefly to take her temperature and she says that she felt very short of breath again, so I will not attempt to wean her yet. Patient seen by Dr. Nelson who has accepted her to [facility] for observation. - Vital Signs Vital signs: Temp Pulse Resp BP Pulse Ox 97.5 F 16 124/57 L 100 06/12/20 02:56 06/12/20 05:01 06/12/20 05:01 06/12/20 05:01 - Laboratory Results Result Diagrams: 06/12/20 02:56 06/12/20 02:56 Laboratory Results Interpreted: 06/12/20 06/12/20 06/12/20 02:56 02:56 03:49 Lymph % (Auto) 47.0 H Eos % (Auto) 9.2 H Absolute Eos (auto) 0.8 H Seg Neutrophils % 36.2 L VBG pH 7.28 L Glucose 123 H Critical Laboratory Results Reviewed: No Critical Results - Radiology Results Critical Radiology Results Reviewed: No Critical Results Critical Care Note - Critical Care Note Total time excluding time spent on procedures (mins): 35 - Spent time repeatedly reevaluating patient who was in respiratory failure requiring NIPPV Discharge - Discharge Clinical Impression: Asthma exacerbation, Respiratory failure Disposition: ADMITTED OBSERVATION Admitting Provider: Leslie Unit Admitted: [facility] Referrals: ALLEGRA PICKETT DO [Primary Care Provider] - Follow up as needed
[2020-06-12] MEDS: MAGNESIUM SULFATE/D5W 1 GM/100 ML RTUPB IV SCH ×2 (03:32→04:38)
[2020-06-12 03:38] LABS: ALBUMIN 4.2 g/dL (3.5-5.0); ALKALINE PHOSPHATASE 71 U/L (38-126); ANION GAP 10 (5-19); ASPARTATE AMINO TRANSFERASE 25 U/L (14-36); BILIRUBIN,DIRECT 0.3 mg/dL (0.0-0.4); BILIRUBIN,TOTAL 0.3 mg/dL (0.2-1.3); BLOOD UREA NITROGEN 8 mg/dL (7-20); CALCIUM 9.5 mg/dL (8.4-10.2); CARBON DIOXIDE 23 mmol/L (22-30); CHLORIDE 107 mmol/L (98-107); GLUCOSE 123 mg/dL (75-110); POTASSIUM 4.6 mmol/L (3.6-5.0); TOTAL PROTEIN 7.2 g/dL (6.3-8.2)
[2020-06-12 04:31] LABS: VENOUS BLOOD BASE EXCESS -3.8 mmol/L; VENOUS BLOOD HCO3 23.3 mmol/L (20-32); VENOUS BLOOD PCO2 50.5 mmHg (35-63); VENOUS BLOOD PH 7.28 (7.30-7.42)
--- NOTE | 2020-06-12 04:51 | RADIOLOGY REPORT (SQ) ---
EXAM DESCRIPTION: X-ray single view chest. CLINICAL HISTORY: 45 years Female, sob recent covid asthma COMPARISON: 04/27/2019 TECHNIQUE: Single portable x-ray view of the chest performed on 06/12/2020 at 4:01 AM FINDINGS: The lungs are well expanded and are clear. There is no evidence of a pneumothorax. The cardiac silhouette is normal in size and configuration. The mediastinal contours are normal. No acute osseous abnormality is identified. No acute soft tissue abnormalities are seen. Lines and tubes: None. Free air: None IMPRESSION: No evidence of acute intrathoracic disease.
[2020-06-12] MEDS ORDERED: ONDANSETRON HCL INJ/PF 4 MG/2 ML SDV IV PRN (04:54)
[2020-06-12] MEDS ORDERED: RINGERS SOLUTION,LACTATED 1,000 ML IV PRN (04:54)
--- NOTE | 2020-06-12 06:05 | PDOC H&P ---
History of Present Illness Admission Date/PCP: ALLEGRA PICKETT DO Patient complains of: Shortness of breath History of Present Illness: ARABELLA SINGLETON is a 45 year old female with a history of mild persistent asthma, GERD, rheumatoid arthritis and who recently recovered from COVID-19 infection about 5 weeks back presents to the ED with a 3 days duration of progressively worsening shortness of breath. Yesterday the shortness of breath got really worse and last night before going to bed she states that she was in distress and decided to come to the ED for further treatment. She also has been having dry cough for the past couple of days and had a fever 2 days prior to presentation. She states that she used nebulizer multiple times at home but did not help much. Associated with this she also has been having audible wheezing. Patient also reports that she has been having nausea, repeated nonbloody and nonbilious vomiting for the past few days. She also endorses watery diarrhea of similar duration with associated lower abdominal discomfort. She denies any current dysuria, frequency, urgency of urination. She states that she was treated with antibiotic 2 weeks back before she started having the diarrhea. She denies palpitation, dizziness, chest pain. 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 Endocrine Medical History: Denies: Diabetes Mellitus Type 2, Hyperthyroidism, Hypothyroidism Malignancy Medical History: Denies: Lung Cancer GI Medical History: Reports: Gastroesophageal Reflux Disease Musculoskeltal Medical History: Reports: Arthritis - RA Psychiatric Medical History: Reports: Depression - anxiety severe Hematology: Reports: Anemia - PER PATIENT 3.2 IRON Past Surgical History Past Surgical History: Reports: Appendectomy, Section - x 3, Tubal Ligation, Other - Biopsy left neck mass benign, eye surgery, bronchoscopy at [facility] Denies: Pacemaker Social History Information Source: Patient Lives with: Family Smoking Status: Never Smoker Electronic Cigarette use?: No Frequency of Alcohol Use: Rare Hx Recreational Drug Use: No Drugs: None Hx Prescription Drug Abuse: No - Advance Directive Resuscitation Status: Full Code Family History Family History: COPD - Father was warehouse examiner in [place], CVA - Mother, DM - Her other , Other - Sisters with rheumatoid arthritis and cervical cancer each. Alpha-1 antitrypsin deficiency mother. Parental Family History Reviewed: Yes Children Family History Reviewed: Yes Sibling(s) Family History Reviewed.: Yes Medication/Allergy Home Medications: Albuterol Sulfate [Proair HFA Inhalation Aerosol 8.5 gm MDI] 1 puff IH Q6HP PRN 04/27/19 Alprazolam [Xanax] 1 mg PO Q8 04/27/19 Brexpiprazole [Rexulti] 1 mg PO DAILY 04/27/19 Budesonide/Formoterol Fumarate [Symbicort HFA 160-4.5 mcg Inhaler 6 gm] 2 puff IH Q12 04/27/19 Cetirizine HCl [Zyrtec 10 mg Tablet] 10 mg PO DAILY 04/27/19 Duloxetine HCl [Cymbalta] 60 mg PO Q12 04/27/19 Hydroxyzine Pamoate [Vistaril 25 mg Capsule] 25 mg PO Q8HP PRN 04/27/19 Ibuprofen [Motrin 800 mg Tablet] 800 mg PO Q8HP PRN 04/27/19 Montelukast Sodium [Singulair 10 mg Tablet] 10 mg PO QPM 04/27/19 Tiotropium [place] [Spiriva Handihaler 5 Cap/Kit (18 Mcg/Cap)] 1 cap IH DAILY 04/27/19 Zolpidem Tartrate [Ambien] 10 mg PO HSP PRN 04/27/19 Prednisone 10 mg PO DAILY #0 04/29/19 Prednisone [Deltasone 20 mg Tablet] 40 mg PO BID 5 Days #20 tablet 04/29/19 Azithromycin [Zithromax 250 mg Tablet] 250 mg PO ASDIR PRN #6 tablet 05/15/20 Dexamethasone [Decadron 4 Mg Tablet] 4 mg PO DAILY #5 tablet 05/15/20 Famotidine [Pepcid 20 mg Tablet] 20 mg PO DAILY #12 tablet 05/15/20 Hydrocodone Bit/Homatropine [Hycodan Syrup 5-1.5 mg/5 ml Ud Cup] 5 ml PO Q4HP PRN #120 ml 05/15/20 Promethazine HCl [Phenergan 25 mg Tablet] 25 mg PO BID 5 Days #10 tablet 05/15/20 Allergies/Adverse Reactions: cefuroxime axetil [From Ceftin] Allergy (Intermediate, Verified 05/15/20 08:59) Hives Pork/Porcine Containing Products Allergy (Mild, Verified 05/15/20 08:59) voriconazole [From Vfend] Adverse Reaction (Mild, Verified 05/15/20 08:59) Skin Redness Review of Systems Constitutional: PRESENT: as per HPI Eyes: ABSENT: visual disturbances Ears: ABSENT: hearing changes Nose, Mouth, and Throat: ABSENT: headache(s), mouth pain, sore throat Cardiovascular: PRESENT: as per HPI Respiratory: PRESENT: as per HPI Gastrointestinal: PRESENT: as per HPI Genitourinary: ABSENT: dysuria, hematuria Musculoskeletal: ABSENT: joint swelling Integumentary: ABSENT: rash, wounds Neurological: ABSENT: abnormal gait, abnormal speech, confusion, dizziness, focal weakness, syncope Psychiatric: ABSENT: anxiety, depression, homidical ideation, suicidal ideation Endocrine: ABSENT: cold intolerance, heat intolerance, polydipsia, polyuria Hematologic/Lymphatic: ABSENT: easy bleeding, easy bruising Physical Exam Vital Signs: Temp Pulse Resp BP Pulse Ox 97.5 F 18 125/68 100 06/12/20 02:56 06/12/20 04:01 06/12/20 04:01 06/12/20 04:01 Intake & Output 06/10/20 06/11/20 06/12/20 06:59 06:59 06:59 Intake Total 1100 Balance 1100 Weight 98.9 kg Additional comments: GENERAL APPEARANCE: Alert and oriented x3, in mild respiratory distress, on BiPAP with FiO2 of 35% saturating 99% HEENT: Normocephalic and atraumatic. No scleral icterus. Dry oral mucosa NECK: Supple. No lymphadenopathy or tenderness. No carotid bruit. No JVD CHEST: Symmetric. Nontender to palpation. LUNGS: Clear with good air entry bilaterally. Has bilateral scattered wheezes HEART: Regular rate and rhythm with normal S1 and S2. No murmurs, gallops, or rubs. ABDOMEN: soft, active bowel sounds, has mild epigastric tenderness but no guarding or rigidity. No organomegaly detected. EXTREMITIES: No cyanosis, clubbing, or edema. MUSCULOSKELETAL: No deformity, atrophy or swelling noted PSYCHIATRIC: Recent and remote memory is intact. Appropriate mood and affect. SKIN: Warm, dry, and well perfused. No lesions or rashes are noted. NEUROLOGIC: No focal sensory or motor deficits are noted. Results Laboratory Results: 06/12/20 02:56 06/12/20 02:56 06/12/20 06/12/20 06/12/20 02:56 02:56 02:56 WBC 8.9 RBC 4.75 Hgb 13.7 Hct 40.4 MCV 85 MCH 28.9 MCHC 34.0 RDW 14.0 Plt Count 409 Seg Neutrophils % 36.2 L VBG pH VBG pCO2 VBG HCO3 VBG Base Excess Sodium 139.9 Potassium 4.6 Chloride 107 Carbon Dioxide 23 Anion Gap 10 BUN 8 Creatinine 0.67 Est GFR ( Amer) > 60 Glucose 123 H Calcium 9.5 Total Bilirubin 0.3 AST 25 Alkaline Phosphatase 71 Total Protein 7.2 Albumin 4.2 Serum HCG, Qual NEGATIVE 06/12/20 03:49 WBC RBC Hgb Hct MCV MCH MCHC RDW Plt Count Seg Neutrophils % VBG pH 7.28 L VBG pCO2 50.5 VBG HCO3 23.3 VBG Base Excess -3.8 Sodium Potassium Chloride Carbon Dioxide Anion Gap BUN Creatinine Est GFR ( Amer) Glucose Calcium Total Bilirubin AST Alkaline Phosphatase Total Protein Albumin Serum HCG, Qual Impressions: Chest X-Ray 06/12/20 03:13 IMPRESSION: No evidence of acute intrathoracic disease. Assessment and Plan - Diagnosis (1) Acute severe exacerbation of asthma Is this a current diagnosis for this admission?: Yes Plan: Patient presents with shortness of breath and was in severe respiratory distress on arrival using accessory muscles Was treated with Solu-Medrol, magnesium sulfate and DuoNeb's at the ED with interval improvement Currently on BiPAP saturating 99% on FiO2 of 35%, has mild scattered wheezes but not in distress Venous blood gas was notable for a pH of 7.28 and PCO2 of 50 Chest x-ray showed no acute findings Continue Solu-Medrol 40 mg IV twice daily Placed her on breathing treatment with levalbuterol due to tachycardia Will try to titrate down FiO2 and transition her to intranasal oxygen in the next few hours with the plan to wean her off of oxygen (2) Acute respiratory failure with hypoxia Is this a current diagnosis for this admission?: Yes Plan: Due to acute exacerbation of asthma Has interval improvement after initial management at the ED Currently on BiPAP and saturating upper 90s on 35% FiO2 Continue managing acute asthma exacerbation as stated above Titrate down FiO2 and transition to intranasal oxygen when tolerated (3) Nausea and vomiting Is this a current diagnosis for this admission?: Yes Plan: Likely due to acute worsening of GERD/gastritis versus viral enteritis Will keep her n.p.o. for now for bowel rest for now Famotidine 20 mg IV twice daily Will advance diet as tolerated (4) Watery diarrhea Is this a current diagnosis for this admission?: Yes Plan: Patient presents with few days duration of watery diarrhea Was treated with antibiotic about 2 weeks back Possibly due to viral enteritis versus possible C. difficile Will obtain C. difficile PCR Continue supportive treatment Being hydrated with IV fluid for volume depletion (5) Volume depletion Is this a current diagnosis for this admission?: Yes Plan: Patient has dry oral mucosa on physical exam and was tachycardic on presentation Likely due to GI loss from nausea, vomiting and diarrhea Patient was given 1 L of IV fluid at the ED Will provide additional liter of LR and then reassess volume status Continue closely monitoring vital signs. (6) Tachycardia Is this a current diagnosis for this admission?: Yes Plan: On presentation patient's heart rate was in the 130s Likely multifactorial due to volume depletion and respiratory distress from severe asthma exacerbation Heart rate has improved to the 110s and has regular sinus rhythm on telemetry monitoring Continue IV hydration and treating asthma exacerbation Continue telemetry monitoring (7) Morbid obesity with BMI of 40.0-44.9, adult Is this a current diagnosis for this admission?: Yes Plan: BMI on this encounter is 42.6 Continue encouraging patient to do regular exercise and make dietary habits ni ge to attain optimal weight (8) GERD (gastroesophageal reflux disease) Qualifiers: Esophagitis presence: without esophagitis Qualified Code(s): K21.9 - Gastro-esophageal reflux disease without esophagitis Is this a current diagnosis for this admission?: Yes Plan: Currently on famotidine Will consider PPI after C. difficile is ruled out (9) Rheumatoid arthritis Qualifiers: Rheumatoid arthritis location: multiple sites Is this a current diagnosis for this admission?: Yes Plan: Currently not in a flareup Continue NSAIDs as needed - Time Time Spent with patient: 35 or more minutes Total Critical Time (Minutes): 50 Medications reviewed and adjusted accordingly: Yes Anticipated Discharge Disposition: Home, Self Care Anticipated Discharge Timeframe: within 48 hours - Inpatient Certification Based on my medical assessment, after consideration of the patient's comorbidities, presenting symptoms, or acuity I expect that the services needed warrant INPATIENT care.: Yes I certify that my determination is in accordance with my understanding of Medicare's requirements for reasonable and necessary INPATIENT services [42 CFR 412.3e].: Yes Medical Necessity: Failure to Improve With Outpatient Therapy, Need Close Monitoring Due to Risk of Patient Decompensation, Need For Continuous Telemetry Monitoring, Need for Nebulizer Therapy and Monitoring of Response, Risk of Complication if Not Cared For in Hospital Post Hospital Care: D/C or Transfer Summary
[2020-06-12] MEDS ORDERED: METHYLPREDNISOLONE INJ 40 MG/1 ML SDV IV SCH (10:00)
[2020-06-12] MEDS: FAMOTIDINE INJ/PF 20 MG/2 ML SDV IV SCH ×2 (10:40→21:42)
[2020-06-12] MEDS: LEVALBUTEROL HCL NEB 0.63 MG/3 ML AMPUL NEB PRN (11:04)
--- NOTE | 2020-06-12 11:23 | PDOC PROGRESS REPORT ---
Subjective Date:: 06/12/20 Subjective:: I was called to the patient's bedside. She was tachypneic and acutely short of breath. Difficult to tell if she had true expiratory wheezes or more of an expiratory stridorous breath sounds. Respiratory therapy was present for treatment. Unfortunately she is having some tachycardia likely secondary to the combination of beta agonist treatments and underlying anxiety. Reason For Visit: ACUTE EXACERBATION OF ASTHMA,NAUSEA AND VOMITING Physical Exam Vital Signs: Temp Pulse Resp BP Pulse Ox 98.2 F 86 24 H 136/59 H 100 06/12/20 08:40 06/12/20 08:40 06/12/20 08:40 06/12/20 08:40 06/12/20 08:40 Intake & Output 06/11/20 06/12/20 06/13/20 06:59 06:59 06:59 Intake Total 1300 Balance 1300 Weight 98.9 kg General appearance: PRESENT: morbidly obese, other - Moderate to severe distress Head exam: PRESENT: atraumatic, normocephalic Respiratory exam: PRESENT: stridor - Stridorous breath sounds during exhale. Possible wheezing but difficult to assess., symmetrical, tachypnea, wheezes. ABSENT: rales, rhonchi Cardiovascular exam: PRESENT: +S1, +S2, tachycardia. ABSENT: diastolic murmur, systolic murmur GI/Abdominal exam: PRESENT: normal bowel sounds, soft. ABSENT: distended, guarding, tenderness Rectal exam: PRESENT: deferred Gentrourinary exam: ABSENT: indwelling catheter Neurological exam: PRESENT: alert, awake, oriented to person, oriented to place, oriented to time, oriented to situation. ABSENT: altered Psychiatric exam: PRESENT: anxious - Extremely anxious Results Laboratory Results: 06/12/20 02:56 06/12/20 02:56 06/12/20 06/12/20 06/12/20 02:56 02:56 02:56 WBC 8.9 RBC 4.75 Hgb 13.7 Hct 40.4 MCV 85 MCH 28.9 MCHC 34.0 RDW 14.0 Plt Count 409 Seg Neutrophils % 36.2 L VBG pH VBG pCO2 VBG HCO3 VBG Base Excess Sodium 139.9 Potassium 4.6 Chloride 107 Carbon Dioxide 23 Anion Gap 10 BUN 8 Creatinine 0.67 Est GFR ( Amer) > 60 Glucose 123 H Calcium 9.5 Total Bilirubin 0.3 AST 25 Alkaline Phosphatase 71 Total Protein 7.2 Albumin 4.2 Serum HCG, Qual NEGATIVE 06/12/20 03:49 WBC RBC Hgb Hct MCV MCH MCHC RDW Plt Count Seg Neutrophils % VBG pH 7.28 L VBG pCO2 50.5 VBG HCO3 23.3 VBG Base Excess -3.8 Sodium Potassium Chloride Carbon Dioxide Anion Gap BUN Creatinine Est GFR ( Amer) Glucose Calcium Total Bilirubin AST Alkaline Phosphatase Total Protein Albumin Serum HCG, Qual Impressions: Chest X-Ray 06/12/20 03:13 IMPRESSION: No evidence of acute intrathoracic disease. Assessment and Plan - Diagnosis (1) Acute severe exacerbation of asthma Is this a current diagnosis for this admission?: Yes (2) Acute respiratory failure with hypoxia Is this a current diagnosis for this admission?: Yes (3) Nausea and vomiting Is this a current diagnosis for this admission?: Yes (4) Watery diarrhea Is this a current diagnosis for this admission?: Yes (5) Volume depletion Is this a current diagnosis for this admission?: Yes (6) Morbid obesity with BMI of 40.0-44.9, adult Is this a current diagnosis for this admission?: Yes (7) Tachycardia Is this a current diagnosis for this admission?: Yes (8) GERD (gastroesophageal reflux disease) Qualifiers: Esophagitis presence: without esophagitis Qualified Code(s): K21.9 - Gastro-esophageal reflux disease without esophagitis Is this a current diagnosis for this admission?: Yes (9) Rheumatoid arthritis Qualifiers: Rheumatoid arthritis location: multiple sites Is this a current diagnosis for this admission?: Yes (10) Severe anxiety with panic Is this a current diagnosis for this admission?: Yes (11) Depression Qualifiers: Depression Type: unspecified Qualified Code(s): F32.9 - Major depressive disorder, single episode, unspecified Is this a current diagnosis for this admission?: Yes - Plan Summary Summary: (1) Acute severe exacerbation of asthma Is this a current diagnosis for this admission?: Yes Plan: Patient presents with shortness of breath and was in severe respiratory distress on arrival using accessory muscles Was treated with Solu-Medrol, magnesium sulfate and DuoNeb's at the ED with interval improvement Currently on BiPAP saturating 99% on FiO2 of 35%, has mild scattered wheezes but not in distress Venous blood gas was notable for a pH of 7.28 and PCO2 of 50 Chest x-ray showed no acute findings Continue Solu-Medrol 40 mg IV twice daily Placed her on breathing treatment with levalbuterol due to tachycardia Will try to titrate down FiO2 and transition her to intranasal oxygen in the next few hours with the plan to wean her off of oxygen (2) Acute respiratory failure with hypoxia Is this a current diagnosis for this admission?: Yes Plan: Due to acute exacerbation of asthma Has interval improvement after initial management at the ED Currently on BiPAP and saturating upper 90s on 35% FiO2 Continue managing acute asthma exacerbation as stated above Titrate down FiO2 and transition to intranasal oxygen when tolerated (3) Nausea and vomiting Is this a current diagnosis for this admission?: Yes Plan: Likely due to acute worsening of GERD/gastritis versus viral enteritis Will keep her n.p.o. for now for bowel rest for now Famotidine 20 mg IV twice daily Will advance diet as tolerated (4) Watery diarrhea Is this a current diagnosis for this admission?: Yes Plan: Patient presents with few days duration of watery diarrhea Was treated with antibiotic about 2 weeks back Possibly due to viral enteritis versus possible C. difficile Will obtain C. difficile PCR Continue supportive treatment Being hydrated with IV fluid for volume depletion (5) Volume depletion Is this a current diagnosis for this admission?: Yes Plan: Patient has dry oral mucosa on physical exam and was tachycardic on presentation Likely due to GI loss from nausea, vomiting and diarrhea Patient was given 1 L of IV fluid at the ED Will provide additional liter of LR and then reassess volume status Continue closely monitoring vital signs. (6) Tachycardia Is this a current diagnosis for this admission?: Yes Plan: On presentation patient's heart rate was in the 130s Likely multifactorial due to volume depletion and respiratory distress from severe asthma exacerbation Heart rate has improved to the 110s and has regular sinus rhythm on telemetry monitoring Continue IV hydration and treating asthma exacerbation Continue telemetry monitoring (7) Morbid obesity with BMI of 40.0-44.9, adult Is this a current diagnosis for this admission?: Yes Plan: BMI on this encounter is 42.6 Continue encouraging patient to do regular exercise and make dietary habits change to attain optimal weight (8) GERD (gastroesophageal reflux disease) Qualifiers: Esophagitis presence: without esophagitis Qualified Code(s): K21.9 - Gastro-esophageal reflux disease without esophagitis Is this a current diagnosis for this admission?: Yes Plan: Currently on famotidine Will consider PPI after C. difficile is ruled out (9) Rheumatoid arthritis Qualifiers: Rheumatoid arthritis location: multiple sites Is this a current diagnosis for this admission?: Yes Plan: Currently not in a flareup Continue NSAIDs as needed (10) Severe anxiety with panic Is this a current diagnosis for this admission?: Yes (11) Depression Qualifiers: Depression Type: unspecified Qualified Code(s): F32.9 - Major depressive disorder, single episode, unspecified Is this a current diagnosis for this admission?: Yes 06/12/2020 Critical care visit The patient was quite tachypneic and wheezy. Her oxygen saturation in fact was greater than 90%. It is difficult to ascertain whether this is truly her asthma, COPD or if the tachypnea and shortness of breath were succeeded in her severe anxiety. She did get a nebulizer treatment. She is on telemetry to monitor for tachycardia. I increased her steroid regimen. I also reviewed her medication reconciliation. I continued the alprazolam. She also takes Rexulti and if family brings it in she will be able to take that as well. She is on Ambien. With her morbid obesity (BMI 42.6) the possibility of obstructive sleep apnea also exists. I looked at her old records and she has been on Zyrtec and Singulair in the past. I will likely restart these as well. I will continue to monitor her respiratory status as well as associated signs and symptoms throughout the day. - Time Time Spent with patient: 35 or more minutes Total Critical Time (Minutes): 40 Medications reviewed and adjusted accordingly: Yes Anticipated Discharge Disposition: Home, Self Care Anticipated Discharge Timeframe: Unknown
[2020-06-12] MEDS ORDERED: (PENDING PHARMACY ID) (Zolpidem Tartrate [Ambien] 10 MG Tablet) PO PRN (12:21)
[2020-06-12] MEDS ORDERED: PHARMACY COMMUNICATION ORDER MC NR (12:30)
[2020-06-12] MEDS: ALPRAZOLAM 0.5 MG TABLET PO SCH ×2 (13:20→21:42)
[2020-06-12] MEDS ORDERED: ALPRAZOLAM 1 MG PO SCH (14:00)
[2020-06-12] MEDS: METHYLPREDNISOLONE INJ 40 MG/1 ML SDV IV SCH (17:11)
[2020-06-12] MEDS: ZOLPIDEM TARTRATE 5 MG TABLET PO PRN (18:10)
[2020-06-13] MEDS: ACETAMINOPHEN 325 MG TABLET PO PRN (01:11)
[2020-06-13] MEDS: METHYLPREDNISOLONE INJ 40 MG/1 ML SDV IV SCH ×3 (01:12→21:28)
[2020-06-13 05:41] LABS: ABSOLUTE LYMPHOCYTES (AUTO) 0.9 10^3/uL (0.5-4.7); ABSOLUTE MONOCYTES (AUTO) 0.1 10^3/uL (0.1-1.4); ABSOLUTE NEUT (AUTO) 5.7 10^3/uL (1.7-8.2); ANION GAP 9 (5-19); BASOPHILS % (AUTO) 0.2 % (0-2); BLOOD UREA NITROGEN 10 mg/dL (7-20); CALCIUM 9.1 mg/dL (8.4-10.2); CARBON DIOXIDE 22 mmol/L (22-30); CHLORIDE 107 mmol/L (98-107); GLUCOSE 192 mg/dL (75-110); HEMATOCRIT 38.8 % (36.0-47.0); HEMOGLOBIN 13.2 g/dL (12.0-15.5); LYMPHOCYTES % (AUTO) 13.5 % (13-45); MEAN CORPUSCULAR HEMOGLOBIN 29.3 pg (27.0-33.4); MEAN CORPUSCULAR HGB CONC 34.1 g/dL (32.0-36.0); MEAN CORPUSCULAR VOLUME 86 fl (80-97); MONOCYTES % (AUTO) 1.5 % (3-13); PLATELET COUNT 352 10^3/uL (150-450); POTASSIUM 4.5 mmol/L (3.6-5.0); RED BLOOD COUNT 4.52 10^6/uL (3.72-5.28); SEGMENTED NEUTROPHILS % (AUTO) 84.8 % (42-78); TOTAL CELLS COUNTED % (AUTO) 100 %; WHITE BLOOD COUNT 6.8 10^3/uL (4.0-10.5)
[2020-06-13] MEDS: ALPRAZOLAM 0.5 MG TABLET PO SCH ×3 (05:53→21:27)
[2020-06-13] MEDS: LEVALBUTEROL HCL NEB 0.63 MG/3 ML AMPUL NEB PRN ×2 (08:52→14:09)
[2020-06-13] MEDS ORDERED: BREXPIPRAZOLE 1 MG PO SCH (10:00)
[2020-06-13] MEDS: FAMOTIDINE INJ/PF 20 MG/2 ML SDV IV SCH (10:01)
[2020-06-13] MEDS ORDERED: GUAIFENESIN/D-METHORPHAN (200-20 MG) SYRUP 10 ML PO PRN ×2 (10:33→11:46)
[2020-06-13] MEDS: DULOXETINE HCL 30 MG CAPSULE.DR PO SCH (11:44)
--- NOTE | 2020-06-13 15:02 | PDOC PROGRESS REPORT ---
Subjective Date:: 06/13/20 Subjective:: The patient is currently undergoing a nebulizer treatment. She still has interm ittent episodes of wheezing. She remains quite anxious. It is exacerbated likely by the levalbuterol which also causes tachycardia. She also states that when she coughs a lot she almost has this electric charge like sensation that causes discomfort. Family did bring in her Rexulti to use Reason For Visit: ACUTE EXACERBATION OF ASTHMA,NAUSEA AND VOMITING Physical Exam Vital Signs: Temp Pulse Resp BP Pulse Ox 97.7 F 96 16 135/70 H 97 06/13/20 12:16 06/13/20 14:09 06/13/20 14:09 06/13/20 12:16 06/13/20 14:09 Intake & Output 06/12/20 06/13/20 06/14/20 06:59 06:59 06:59 Intake Total 1300 897 120 Balance 1300 897 120 Weight 98.9 kg 92.2 kg General appearance: PRESENT: cooperative, obese, other - Moderate distress Head exam: PRESENT: atraumatic, normocephalic Eye exam: PRESENT: conjunctiva pink. ABSENT: scleral icterus Ear exam: PRESENT: normal external ear exam. ABSENT: bleeding, drainage Mouth exam: PRESENT: moist, tongue midline Respiratory exam: PRESENT: symmetrical, tachypnea, wheezes - Sporadic expiratory wheezes bilaterally. ABSENT: accessory muscle use, rales, rhonchi, stridor Cardiovascular exam: PRESENT: +S1, +S2, tachycardia. ABSENT: bradycardia, diastolic murmur, irregular rhythm, systolic murmur GI/Abdominal exam: PRESENT: normal bowel sounds, soft, other - Protuberant abdomen. ABSENT: tenderness Rectal exam: PRESENT: deferred Gentrourinary exam: ABSENT: indwelling catheter Extremities exam: ABSENT: calf tenderness, pedal edema Musculoskeletal exam: PRESENT: ambulatory, full ROM, normal inspection. ABSENT: deformity, dislocation Neurological exam: PRESENT: alert, awake, oriented to person, oriented to place, oriented to time, oriented to situation, CN II-XII grossly intact, other - Tremulous secondary to nebulizer treatment. ABSENT: altered Psychiatric exam: PRESENT: anxious - Very anxious.. ABSENT: agitated Focused psych exam: ABSENT: delusional, paranoid, restlessness Skin exam: PRESENT: dry, normal color, warm. ABSENT: rash Results Laboratory Results: 06/13/20 05:04 06/13/20 05:04 06/13/20 06/13/20 05:04 05:04 WBC 6.8 RBC 4.52 Hgb 13.2 Hct 38.8 MCV 86 MCH 29.3 MCHC 34.1 RDW 14.0 Plt Count 352 Seg Neutrophils % 84.8 H Sodium 138.0 Potassium 4.5 Chloride 107 Carbon Dioxide 22 Anion Gap 9 BUN 10 Creatinine 0.65 Est GFR ( Amer) > 60 Glucose 192 H Calcium 9.1 Impressions: Chest X-Ray 06/12/20 03:13 IMPRESSION: No evidence of acute intrathoracic disease. Assessment and Plan - Diagnosis (1) Acute severe exacerbation of asthma Is this a current diagnosis for this admission?: Yes (2) Acute respiratory failure with hypoxia Is this a current diagnosis for this admission?: Yes (3) Nausea and vomiting Is this a current diagnosis for this admission?: Yes (4) Watery diarrhea Is this a current diagnosis for this admission?: Yes (5) Volume depletion Is this a current diagnosis for this admission?: Yes (6) Morbid obesity with BMI of 40.0-44.9, adult Is this a current diagnosis for this admission?: Yes (7) Tachycardia Is this a current diagnosis for this admission?: Yes (8) GERD (gastroesophageal reflux disease) Qualifiers: Esophagitis presence: without esophagitis Qualified Code(s): K21.9 - Gastro-esophageal reflux disease without esophagitis Is this a current diagnosis for this admission?: Yes (9) Rheumatoid arthritis Qualifiers: Rheumatoid arthritis location: multiple sites Is this a current diagnosis for this admission?: Yes (10) Severe anxiety with panic Is this a current diagnosis for this admission?: Yes (11) Depression Qualifiers: Depression Type: unspecified Qualified Code(s): F32.9 - Major depressive disorder, single episode, unspecified Is this a current diagnosis for this admission?: Yes - Plan Summary Summary: (1) Acute severe exacerbation of asthma Is this a current diagnosis for this admission?: Yes Plan: Patient presents with shortness of breath and was in severe respiratory distress on arrival using accessory muscles Was treated with Solu-Medrol, magnesium sulfate and DuoNeb's at the ED with interval improvement Currently on BiPAP saturating 99% on FiO2 of 35%, has mild scattered wheezes but not in distress Venous blood gas was notable for a pH of 7.28 and PCO2 of 50 Chest x-ray showed no acute findings Continue Solu-Medrol 40 mg IV twice daily Placed her on breathing treatment with levalbuterol due to tachycardia Will try to titrate down FiO2 and transition her to intranasal oxygen in the next few hours with the plan to wean her off of oxygen (2) Acute respiratory failure with hypoxia Is this a current diagnosis for this admission?: Yes Plan: Due to acute exacerbation of asthma Has interval improvement after initial management at the ED Currently on BiPAP and saturating upper 90s on 35% FiO2 Continue managing acute asthma exacerbation as stated above Titrate down FiO2 and transition to intranasal oxygen when tolerated (3) Nausea and vomiting Is this a current diagnosis for this admission?: Yes Plan: Likely due to acute worsening of GERD/gastritis versus viral enteritis Will keep her n.p.o. for now for bowel rest for now Famotidine 20 mg IV twice daily Will advance diet as tolerated (4) Watery diarrhea Is this a current diagnosis for this admission?: Yes Plan: Patient presents with few days duration of watery diarrhea Was treated with antibiotic about 2 weeks back Possibly due to viral enteritis versus possible C. difficile Will obtain C. difficile PCR Continue supportive treatment Being hydrated with IV fluid for volume depletion (5) Volume depletion Is this a current diagnosis for this admission?: Yes Plan: Patient has dry oral mucosa on physical exam and was tachycardic on presentation Likely due to GI loss from nausea, vomiting and diarrhea Patient was given 1 L of IV fluid at the ED Will provide additional liter of LR and then reassess volume status Continue closely monitoring vital signs. (6) Tachycardia Is this a current diagnosis for this admission?: Yes Plan: On presentation patient's heart rate was in the 130s Likely multifactorial due to volume depletion and respiratory distress from severe asthma exacerbation Heart rate has improved to the 110s and has regular sinus rhythm on telemetry monitoring Continue IV hydration and treating asthma exacerbation Continue telemetry monitoring (7) Morbid obesity with BMI of 40.0-44.9, adult Is this a current diagnosis for this admission?: Yes Plan: BMI on this encounter is 42.6 Continue encouraging patient to do regular exercise and make dietary habits change to attain optimal weight (8) GERD (gastroesophageal reflux disease) Qualifiers: Esophagitis presence: without esophagitis Qualified Code(s): K21.9 - Gastro-esophageal reflux disease without esophagitis Is this a current diagnosis for this admission?: Yes Plan: Currently on famotidine Will consider PPI after C. difficile is ruled out (9) Rheumatoid arthritis Qualifiers: Rheumatoid arthritis location: multiple sites Is this a current diagnosis for this admission?: Yes Plan: Currently not in a flareup Continue NSAIDs as needed (10) Severe anxiety with panic Is this a current diagnosis for this admission?: Yes (11) Depression Qualifiers: Depression Type: unspecified Qualified Code(s): F32.9 - Major depressive disorder, single episode, unspecified Is this a current diagnosis for this admission?: Yes 06/12/2020 Critical care visit The patient was quite tachypneic and wheezy. Her oxygen saturation in fact was greater than 90%. It is difficult to ascertain whether this is truly her asthma, COPD or if the tachypnea and shortness of breath were succeeded in her severe anxiety. She did get a nebulizer treatment. She is on telemetry to monitor for tachycardia. I increased her steroid regimen. I also reviewed her medication reconciliation. I continued the alprazolam. She also takes Rexulti and if family brings it in she will be able to take that as well. She is on Ambien. With her morbid obesity (BMI 42.6) the possibility of obstructive sleep apnea also exists. I looked at her old records and she has been on Zyrtec and Singulair in the past. I will likely restart these as well. I will continue to monitor her respiratory status as well as associated signs and symptoms throughout the day. 06/13/2020 Asthma exacerbation-still tachypneic and quite tachycardic secondary to m edications. I am going to add Trelegy in the morning as well as a single inhalation of Serevent at night to utilize mostly long-acting beta agonists. The nebulizer treatments will be as needed. With the inhaled steroid I will decrease the Solu-Medrol to 40 mg every 12 hours. The tachycardia certainly is not helping her anxiety. She has been fluctuating between room air and the nonrebreather mask. Respiratory failure with hypoxia-intermittent periods of room air. Hopefully with change in treatment plan we can stabilize the patient and consider discharge tomorrow. Nausea and vomiting-this appears to be improved. I believe once the cough and decreases the episodes of vomiting will decrease Diarrhea-we will add loperamide. Patient wishes to go back to full liquid diet to see if this helps. Foul odor to suggest infectious etiology. Patient is afebrile and has a normal white blood cell count. Anxiety and depression-family has brought in her Rexulti and this should help with her depression. She is on scheduled alprazolam. I have ordered some as needed lorazepam for breakthrough anxiety. The tachycardia as result of short acting beta agonist therapy is not helping. I believe getting her back home will be the biggest help for her anxiety. Tachycardia-secondary to beta agonist. Change to long-acting beta agonist with utilization of short acting beta agonists on an as-needed basis. Gastroesophageal reflux disease-stop Pepcid and initiate her Protonix based on her home regimen. - Time Time Spent with patient: 15-24 minutes Medications reviewed and adjusted accordingly: Yes Anticipated Discharge Disposition: Home, Self Care Anticipated Discharge Timeframe: within 48 hours
[2020-06-13] MEDS ORDERED: LORAZEPAM INJ 2 MG/1 ML VIAL IV PRN (15:51)
[2020-06-13] MEDS: LOPERAMIDE HCL 2 MG CAPSULE PO PRN (21:50)
[2020-06-13] MEDS: ZOLPIDEM TARTRATE 5 MG TABLET PO PRN (21:55)
[2020-06-13] MEDS ORDERED: SALMETEROL XINAFOATE DISKUS 50 MCG/1 DOSE 28 DOSE IH SCH (22:00)
[2020-06-13] MEDS ORDERED: MONTELUKAST SODIUM 10 MG TABLET PO SCH (22:00)
[2020-06-14] MEDS: ALPRAZOLAM 0.5 MG TABLET PO SCH ×2 (06:22→13:04)
[2020-06-14] MEDS: LOPERAMIDE HCL 2 MG CAPSULE PO PRN (06:22)
[2020-06-14] MEDS ORDERED: PANTOPRAZOLE SODIUM 40 MG TABLET.DR PO SCH (08:00)
[2020-06-14] MEDS: ACETAMINOPHEN 325 MG TABLET PO PRN (08:07)
[2020-06-14] MEDS ORDERED: (PENDING PHARMACY ID) (Duloxetine Hcl [Cymbalta] 60 MG Capsule.Dr) PO SCH (10:00)
[2020-06-14] MEDS ORDERED: CETIRIZINE 10 MG TABLET PO SCH (10:00)
[2020-06-14] MEDS ORDERED: FLUTICASONE/UMECLIDIN/VILANTER 100-62.5-25 MCG/DOSE IH SCH (10:00)
[2020-06-14] MEDS: METHYLPREDNISOLONE INJ 40 MG/1 ML SDV IV SCH (10:21)
[2020-06-14] MEDS: DULOXETINE HCL 30 MG CAPSULE.DR PO SCH (10:26)
[2020-06-14] MEDS: LEVALBUTEROL HCL NEB 0.63 MG/3 ML AMPUL NEB PRN (11:16)
--- NOTE | 2020-06-14 12:47 | PDOC PROGRESS REPORT ---
Subjective Date:: 06/14/20 Reason For Visit: ACUTE EXACERBATION OF ASTHMA,NAUSEA AND VOMITING Physical Exam Vital Signs: Temp Pulse Resp BP Pulse Ox 97.7 F 78 16 111/53 L 98 06/14/20 10:00 06/14/20 11:16 06/14/20 11:16 06/14/20 07:50 06/14/20 11:16 Intake & Output 06/13/20 06/14/20 06/15/20 06:59 06:59 06:59 Intake Total 897 360 Balance 897 360 Weight 92.2 kg 94.9 kg Results Laboratory Results: 06/13/20 05:04 06/13/20 05:04 Impressions: Chest X-Ray 06/12/20 03:13 IMPRESSION: No evidence of acute intrathoracic disease. Assessment and Plan - Diagnosis (1) Acute severe exacerbation of asthma Is this a current diagnosis for this admission?: Yes (2) Acute respiratory failure with hypoxia Is this a current diagnosis for this admission?: Yes (3) Nausea and vomiting Is this a current diagnosis for this admission?: Yes (4) Watery diarrhea Is this a current diagnosis for this admission?: Yes (5) Volume depletion Is this a current diagnosis for this admission?: Yes (6) Morbid obesity with BMI of 40.0-44.9, adult Is this a current diagnosis for this admission?: Yes (7) Tachycardia Is this a current diagnosis for this admission?: Yes (8) GERD (gastroesophageal reflux disease) Qualifiers: Esophagitis presence: without esophagitis Qualified Code(s): K21.9 - Gastro-esophageal reflux disease without esophagitis Is this a current diagnosis for this admission?: Yes (9) Rheumatoid arthritis Qualifiers: Rheumatoid arthritis location: multiple sites Is this a current diagnosis for this admission?: Yes (10) Severe anxiety with panic Is this a current diagnosis for this admission?: Yes (11) Depression Qualifiers: Depression Type: unspecified Qualified Code(s): F32.9 - Major depressive disorder, single episode, unspecified Is this a current diagnosis for this admission?: Yes - Plan Summary Summary: (1) Acute severe exacerbation of asthma Is this a current diagnosis for this admission?: Yes Plan: Patient presents with shortness of breath and was in severe respiratory distress on arrival using accessory muscles Was treated with Solu-Medrol, magnesium sulfate and DuoNeb's at the ED with i nterval improvement Currently on BiPAP saturating 99% on FiO2 of 35%, has mild scattered wheezes but not in distress Venous blood gas was notable for a pH of 7.28 and PCO2 of 50 Chest x-ray showed no acute findings Continue Solu-Medrol 40 mg IV twice daily Placed her on breathing treatment with levalbuterol due to tachycardia Will try to titrate down FiO2 and transition her to intranasal oxygen in the next few hours with the plan to wean her off of oxygen (2) Acute respiratory failure with hypoxia Is this a current diagnosis for this admission?: Yes Plan: Due to acute exacerbation of asthma Has interval improvement after initial management at the ED Currently on BiPAP and saturating upper 90s on 35% FiO2 Continue managing acute asthma exacerbation as stated above Titrate down FiO2 and transition to intranasal oxygen when tolerated (3) Nausea and vomiting Is this a current diagnosis for this admission?: Yes Plan: Likely due to acute worsening of GERD/gastritis versus viral enteritis Will keep her n.p.o. for now for bowel rest for now Famotidine 20 mg IV twice daily Will advance diet as tolerated (4) Watery diarrhea Is this a current diagnosis for this admission?: Yes Plan: Patient presents with few days duration of watery diarrhea Was treated with antibiotic about 2 weeks back Possibly due to viral enteritis versus possible C. difficile Will obtain C. difficile PCR Continue supportive treatment Being hydrated with IV fluid for volume depletion (5) Volume depletion Is this a current diagnosis for this admission?: Yes Plan: Patient has dry oral mucosa on physical exam and was tachycardic on presentation Likely due to GI loss from nausea, vomiting and diarrhea Patient was given 1 L of IV fluid at the ED Will provide additional liter of LR and then reassess volume status Continue closely monitoring vital signs. (6) Tachycardia Is this a current diagnosis for this admission?: Yes Plan: On presentation patient's heart rate was in the 130s Likely multifactorial due to volume depletion and respiratory distress from severe asthma exacerbation Heart rate has improved to the 110s and has regular sinus rhythm on telemetry monitoring Continue IV hydration and treating asthma exacerbation Continue telemetry monitoring (7) Morbid obesity with BMI of 40.0-44.9, adult Is this a current diagnosis for this admission?: Yes Plan: BMI on this encounter is 42.6 Continue encouraging patient to do regular exercise and make dietary habits change to attain optimal weight (8) GERD (gastroesophageal reflux disease) Qualifiers: Esophagitis presence: without esophagitis Qualified Code(s): K21.9 - G [place]-esophageal reflux disease without esophagitis Is this a current diagnosis for this admission?: Yes Plan: Currently on famotidine Will consider PPI after C. difficile is ruled out (9) Rheumatoid arthritis Qualifiers: Rheumatoid arthritis location: multiple sites Is this a current diagnosis for this admission?: Yes Plan: Currently not in a flareup Continue NSAIDs as needed (10) Severe anxiety with panic Is this a current diagnosis for this admission?: Yes (11) Depression Qualifiers: Depression Type: unspecified Qualified Code(s): F32.9 - Major depressive disorder, single episode, unspecified Is this a current diagnosis for this admission?: Yes 06/12/2020 Critical care visit The patient was quite tachypneic and wheezy. Her oxygen saturation in fact was greater than 90%. It is difficult to ascertain whether this is truly her asthma, COPD or if the tachypnea and shortness of breath were succeeded in her severe anxiety. She did get a nebulizer treatment. She is on telemetry to monitor for tachycardia. I increased her steroid regimen. I also reviewed her medication reconciliation. I continued the alprazolam. She also takes Rexulti and if family brings it in she will be able to take that as well. She is on Ambien. With her morbid obesity (BMI 42.6) the possibility of obstructive sleep apnea also exists. I looked at her old records and she has been on Zyrtec and Singulair in the past. I will likely restart these as well. I will continue to monitor her respiratory status as well as associated signs and symptoms throughout the day. 06/13/2020 Asthma exacerbation-still tachypneic and quite tachycardic secondary to medications. I am going to add Trelegy in the morning as well as a single inhalation of Serevent at night to utilize mostly long-acting beta agonists. The nebulizer treatments will be as needed. With the inhaled steroid I will decrease the Solu-Medrol to 40 mg every 12 hours. The tachycardia certainly is not helping her anxiety. She has been fluctuating between room air and the nonrebreather mask. Respiratory failure with hypoxia-intermittent periods of room air. Hopefully with change in treatment plan we can stabilize the patient and consider dis charge tomorrow. Nausea and vomiting-this appears to be improved. I believe once the cough and decreases the episodes of vomiting will decrease Diarrhea-we will add loperamide. Patient wishes to go back to full liquid diet to see if this helps. Foul odor to suggest infectious etiology. Patient is afebrile and has a normal white blood cell count. Anxiety and depression-family has brought in her Rexulti and this should help with her depression. She is on scheduled alprazolam. I have ordered some as needed lorazepam for breakthrough anxiety. The tachycardia as result of short acting beta agonist therapy is not helping. I believe getting her back home will be the biggest help for her anxiety. Tachycardia-secondary to beta agonist. Change to long-acting beta agonist with utilization of short acting beta agonists on an as-needed basis. Gastroesophageal reflux disease-stop Pepcid and initiate her Protonix based on her home regimen. 06/14/2020 Allergies, sleep apnea, needs better regulation of baseline therapy needs anxiety therapy
--- NOTE | 2020-06-14 13:23 | PDOC DISCHARGE SUMMARY ---
Impression - Admit/DC Date/PCP Admission Date/Primary Care Provider: 06/12/20 04:54 ALLEGRA PICKETT, Discharge Date: 06/14/20 - Discharge Diagnosis (1) Acute severe exacerbation of asthma Is this a current diagnosis for this admission?: Yes (2) Acute respiratory failure with hypoxia Is this a current diagnosis for this admission?: Yes (3) Nausea and vomiting Is this a current diagnosis for this admission?: Yes (4) Watery diarrhea Is this a current diagnosis for this admission?: Yes (5) Volume depletion Is this a current diagnosis for this admission?: Yes (6) Morbid obesity with BMI of 40.0-44.9, adult Is this a current diagnosis for this admission?: Yes (7) Tachycardia Is this a current diagnosis for this admission?: Yes (8) GERD (gastroesophageal reflux disease) Is this a current diagnosis for this admission?: Yes (9) Rheumatoid arthritis Is this a current diagnosis for this admission?: Yes (10) Severe anxiety with panic Is this a current diagnosis for this admission?: Yes (11) Depression Is this a current diagnosis for this admission?: Yes - Assessment Summary: (1) Acute severe exacerbation of asthma Is this a current diagnosis for this admission?: Yes Plan: Patient presents with shortness of breath and was in severe respiratory distress on arrival using accessory muscles Was treated with Solu-Medrol, magnesium sulfate and DuoNeb's at the ED with interval improvement Currently on BiPAP saturating 99% on FiO2 of 35%, has mild scattered wheezes but not in distress Venous blood gas was notable for a pH of 7.28 and PCO2 of 50 Chest x-ray showed no acute findings Continue Solu-Medrol 40 mg IV twice daily Placed her on breathing treatment with levalbuterol due to tachycardia Will try to titrate down FiO2 and transition her to intranasal oxygen in the next few hours with the plan to wean her off of oxygen (2) Acute respiratory failure with hypoxia Is this a current diagnosis for this admission?: Yes Plan: Due to acute exacerbation of asthma Has interval improvement after initial management at the ED Currently on BiPAP and saturating upper 90s on 35% FiO2 Continue managing acute asthma exacerbation as stated above Titrate down FiO2 and transition to intranasal oxygen when tolerated (3) Nausea and vomiting Is this a current diagnosis for this admission?: Yes Plan: Likely due to acute worsening of GERD/gastritis versus viral enteritis Will keep her n.p.o. for now for bowel rest for now Famotidine 20 mg IV twice daily Will advance diet as tolerated (4) Watery diarrhea Is this a current diagnosis for this admission?: Yes Plan: Patient presents with few days duration of watery diarrhea Was treated with antibiotic about 2 weeks back Possibly due to viral enteritis versus possible C. difficile Will obtain C. difficile PCR Continue supportive treatment Being hydrated with IV fluid for volume depletion (5) Volume depletion Is this a current diagnosis for this admission?: Yes Plan: Patient has dry oral mucosa on physical exam and was tachycardic on presentation Likely due to GI loss from nausea, vomiting and diarrhea Patient was given 1 L of IV fluid at the ED Will provide additional liter of LR and then reassess volume status Continue closely monitoring vital signs. (6) Tachycardia Is this a current diagnosis for this admission?: Yes Plan: On presentation patient's heart rate was in the 130s Likely multifactorial due to volume depletion and respiratory distress from severe asthma exacerbation Heart rate has improved to the 110s and has regular sinus rhythm on telemetry monitoring Continue IV hydration and treating asthma exacerbation Continue telemetry monitoring (7) Morbid obesity with BMI of 40.0-44.9, adult Is this a current diagnosis for this admission?: Yes Plan: BMI on this encounter is 42.6 Continue encouraging patient to do regular exercise and make dietary habits change to attain optimal weight (8) GERD (gastroesophageal reflux disease) Qualifiers: Esophagitis presence: without esophagitis Qualified Code(s): K21.9 - Gastro-esophageal reflux disease without esophagitis Is this a current diagnosis for this admission?: Yes Plan: Currently on famotidine Will consider PPI after C. difficile is ruled out (9) Rheumatoid arthritis Qualifiers: Rheumatoid arthritis location: multiple sites Is this a current diagnosis for this admission?: Yes Plan: Currently not in a flareup Continue NSAIDs as needed (10) Severe anxiety with panic Is this a current diagnosis for this admission?: Yes (11) Depression Qualifiers: Depression Type: unspecified Qualified Code(s): F32.9 - Major depressive disorder, single episode, unspecified Is this a current diagnosis for this admission?: Yes 06/12/2020 Critical care visit The patient was quite tachypneic and wheezy. Her oxygen saturation in fact was greater than 90%. It is difficult to ascertain whether this is truly her asthma, COPD or if the tachypnea and shortness of breath were succeeded in her severe anxiety. She did get a nebulizer treatment. She is on telemetry to monitor for tachycardia. I increased her steroid regimen. I also reviewed her medication reconciliation. I continued the alprazolam. She also takes Rexulti and if family brings it in she will be able to take that as well. She is on Ambien. With her morbid obesity (BMI 42.6) the possibility of obstructive sleep apnea also exists. I looked at her old records and she has been on Zyrtec and Singulair in the past. I will likely restart these as well. I will continue to monitor her respiratory status as well as associated signs and symptoms throughout the day. 06/13/2020 Asthma exacerbation-still tachypneic and quite tachycardic secondary to medications. I am going to add Trelegy in the morning as well as a single inhal ation of Serevent at night to utilize mostly long-acting beta agonists. The nebulizer treatments will be as needed. With the inhaled steroid I will decrease the Solu-Medrol to 40 mg every 12 hours. The tachycardia certainly is not helping her anxiety. She has been fluctuating between room air and the nonrebreather mask. Respiratory failure with hypoxia-intermittent periods of room air. Hopefully with change in treatment plan we can stabilize the patient and consider discharge tomorrow. Nausea and vomiting-this appears to be improved. I believe once the cough and decreases the episodes of vomiting will decrease Diarrhea-we will add loperamide. Patient wishes to go back to full liquid diet to see if this helps. Foul odor to suggest infectious etiology. Patient is afebrile and has a normal white blood cell count. Anxiety and depression-family has brought in her Rexulti and this should help with her depression. She is on scheduled alprazolam. I have ordered some as needed lorazepam for breakthrough anxiety. The tachycardia as result of short acting beta agonist therapy is not helping. I believe getting her back home will be the biggest help for her anxiety. Tachycardia-secondary to beta agonist. Change to long-acting beta agonist with utilization of short acting beta agonists on an as-needed basis. Gastroesophageal reflux disease-stop Pepcid and initiate her Protonix based on her home regimen. 06/14/2020 Patient is breathing comfortably. She has her baseline anxiety. Because of her severe asthma she has been tested for allergies. She has had exposure to mold from water damage to a previous home. She has multiple allergies including dust and animal dander. She is getting injections as she does have pets. She reports that being on the CPAP helped her breathing. I told her she most likely has sleep apnea and needs a sleep study as an outpatient. In addition she admits that she uses her daily inhalers (Advair) multiple times a day and disregards the medication instructions. She does have a nebulizer machine at home. I explained that this should be the breakthrough medication. She had 95% oxygenation during walking oximetry on room air. No need for home oxygen therapy at this time. I discussed with the patient and her the need for a cardiac diet as well as trying to remove as many allergens as possible. I also told the patient she suffers from significant anxiety and absolutely needs to get this treated because it makes her breathing worse. - Additional Information Resuscitation Status: Full Code Discharge Diet: Cardiac Discharge Activity: Activity As Tolerated Referrals: ALLEGRA PICKETT DO [Primary Care Provider] - 06/28/20 9:15 am (06/28/2020 at 9:15 AM) Prescriptions: Fluticasone/Salmeterol [Advair 500-50 Diskus 14 Dose/Diskus] 1 inh IH Q12H #1 inhaler Prednisone [Deltasone 10 mg Tablet] 10 mg PO ASDIR #21 tablet Levalbuterol HCl [Levalbuterol Concentrate] 1.25 mg IH Q6 PRN #50 ml PRN Reason: Wheezing/shortness of breath Levalbuterol HCl [Levalbuterol Concentrate] 1.25 mg IH Q6 PRN #50 vial.neb PRN Reason: Wheezing/shortness of breath Montelukast Sodium [Singulair 10 mg Tablet] 10 mg PO QHS #30 tablet Home Medications: Alprazolam [Xanax] 1 mg PO Q8 04/27/19 Brexpiprazole [Rexulti] 1 mg PO DAILY 04/27/19 Zolpidem Tartrate [Ambien] 10 mg PO HSP PRN 04/27/19 Duloxetine HCl [Cymbalta] 60 mg PO DAILY 06/12/20 Ergocalciferol (Vitamin D2) [Vitamin D2] 50,000 unit PO Q7D 06/12/20 Hydrocodone Bit/Homatropine [Hycodan Syrup 5-1.5 mg/5 ml Ud Cup] 5 ml PO Q4HP PRN 06/12/20 Pantoprazole Sodium [Protonix [address] Tablet] 40 mg PO QAM 06/12/20 Tiotropium [place] [Spiriva Handihaler 5 Cap/Kit (18 Mcg/Cap)] 1 cap IH DAILY 06/12/20 Cetirizine HCl [Zyrtec 10 mg Tablet] 10 mg PO DAILY tablet 06/14/20 Fluticasone/Salmeterol [Advair 500-50 Diskus 14 Dose/Diskus] 1 inh IH Q12H #1 inhaler 06/14/20 Guaifenesin/D-Methorphan Hb [Robitussin-Dm Syrup 10 ml Udcup] 10 ml PO Q6HP PRN syrup 06/14/20 Levalbuterol HCl [Levalbuterol Concentrate] 1.25 mg IH Q6 PRN #50 ml 06/14/20 Levalbuterol HCl [Levalbuterol Concentrate] 1.25 mg IH Q6 PRN #50 vial.neb 06/14/20 Loperamide HCl [Imodium 2 mg Capsule] 2 mg PO Q4HP PRN capsule 06/14/20 Montelukast Sodium [Singulair 10 mg Tablet] 10 mg PO QHS #30 tablet 06/14/20 Prednisone [Deltasone 10 mg Tablet] 10 mg PO ASDIR #21 tablet 06/14/20 History of Present Illiness History of Present Illness: ARABELLA SINGLETON is a 45 year old female with a history of mild persistent asthma, GERD, rheumatoid arthritis and who recently recovered from COVID-19 infection about 5 weeks back presents to the ED with a 3 days duration of progressively worsening shortness of breath. Yesterday the shortness of breath got really worse and last night before going to bed she states that she was in distress and decided to come to the ED for further treatment. She also has been having dry cough for the past couple of days and had a fever 2 days prior to presentation. She states that she used nebulizer multiple times at home but did not help much. Associated with this she also has been having audible wheezing. Patient also reports that she has been having nausea, repeated nonbloody and nonbilious vomiting for the past few days. She also endorses watery diarrhea of similar duration with associated lower abdominal discomfort. She denies any current dysuria, frequency, urgency of urination. She states that she was treated with antibiotic 2 weeks back before she started having the diarrhea. She denies palpitation, dizziness, chest pain. Hospital Course Hospital Course: See above Physical Exam Vital Signs: Temp Pulse Resp BP Pulse Ox 97.7 F 78 16 111/53 L 98 06/14/20 10:00 06/14/20 11:16 06/14/20 11:16 06/14/20 07:50 06/14/20 11:16 Intake & Output 06/13/20 06/14/20 06/15/20 06:59 06:59 06:59 Intake Total 897 360 Balance 897 360 Weight 92.2 kg 94.9 kg General appearance: PRESENT: cooperative, mild distress, well-developed Respiratory exam: PRESENT: clear to auscultation masood, symmetrical, unlabored. ABSENT: rales, rhonchi, tachypnea, wheezes Cardiovascular exam: PRESENT: RRR, +S1, +S2. ABSENT: bradycardia, diastolic murmur, irregular rhythm, systolic murmur, tachycardia GI/Abdominal exam: PRESENT: normal bowel sounds, soft. ABSENT: tenderness Rectal exam: PRESENT: deferred Gentrourinary exam: ABSENT: indwelling catheter Neurological exam: PRESENT: alert, awake, oriented to person, oriented to place, oriented to time, oriented to situation, CN II-XII grossly intact. ABSENT: altered Psychiatric exam: PRESENT: anxious. ABSENT: agitated Results Laboratory Results: WBC 6.8 10^3/uL (4.0-10.5) 06/13/20 05:04 RBC 4.52 10^6/uL (3.72-5.28) 06/13/20 05:04 Hgb 13.2 g/dL (12.0-15.5) 06/13/20 05:04 Hct 38.8 % (36.0-47.0) 06/13/20 05:04 MCV 86 fl (80-97) 06/13/20 05:04 MCH 29.3 pg (27.0-33.4) 06/13/20 05:04 MCHC 34.1 g/dL (32.0-36.0) 06/13/20 05:04 RDW 14.0 % (11.5-14.0) 06/13/20 05:04 Plt Count 352 10^3/uL (150-450) 06/13/20 05:04 Lymph % (Auto) 13.5 % (13-45) 06/13/20 05:04 [place] % (Auto) 1.5 % (3-13) L 06/13/20 05:04 Eos % (Auto) 0.0 % (0-6) 06/13/20 05:04 Baso % (Auto) 0.2 % (0-2) 06/13/20 05:04 Absolute Neuts (auto) 5.7 10^3/uL (1.7-8.2) 06/13/20 05:04 Absolute Lymphs (auto) 0.9 10^3/uL (0.5-4.7) 06/13/20 05:04 Absolute Monos (auto) 0.1 10^3/uL (0.1-1.4) 06/13/20 05:04 Absolute Eos (auto) 0.0 10^3/uL (0.0-0.6) 06/13/20 05:04 Absolute Basos (auto) 0.0 10^3/uL (0.0-0.2) 06/13/20 05:04 Seg Neutrophils % 84.8 % (42-78) H 06/13/20 05:04 VBG pH 7.28 (7.30-7.42) L 06/12/20 03:49 VBG pCO2 50.5 mmHg (35-63) 06/12/20 03:49 VBG HCO3 23.3 mmol/L (20-32) 06/12/20 03:49 VBG Base Excess -3.8 mmol/L 06/12/20 03:49 Sodium 138.0 mmol/L (137-145) 06/13/20 05:04 Potassium 4.5 mmol/L (3.6-5.0) 06/13/20 05:04 Chloride 107 mmol/L (98-107) 06/13/20 05:04 Carbon Dioxide 22 mmol/L (22-30) 06/13/20 05:04 Anion Gap 9 (5-19) 06/13/20 05:04 BUN 10 mg/dL (7-20) 06/13/20 05:04 Creatinine 0.65 mg/dL (0.52-1.25) 06/13/20 05:04 Est GFR ( Amer) > 60 (>60) 06/13/20 05:04 Est GFR (MDRD) Non-Af > 60 (>60) 06/13/20 05:04 Glucose 192 mg/dL (75-110) H 06/13/20 05:04 Calcium 9.1 mg/dL (8.4-10.2) 06/13/20 05:04 Total Bilirubin 0.3 mg/dL (0.2-1.3) 06/12/20 02:56 Direct Bilirubin 0.3 mg/dL (0.0-0.4) 06/12/20 02:56 Neonat Total Bilirubin Not Reportable 06/12/20 02:56 Neonat Direct Bilirubin Not Reportable 06/12/20 02:56 Neonat Indirect Bili Not Reportable 06/12/20 02:56 AST 25 U/L (14-36) 06/12/20 02:56 ALT 19 U/L (<35) 06/12/20 02:56 Alkaline Phosphatase 71 U/L (38-126) 06/12/20 02:56 Total Protein 7.2 g/dL (6.3-8.2) 06/12/20 02:56 Albumin 4.2 g/dL (3.5-5.0) 06/12/20 02:56 Serum HCG, Qual NEGATIVE (NEGATIVE) 06/12/20 02:56 [place] Human Metapneumo PCR NOT DETECTED (NOT DETECT) 06/12/20 04:29 Adenovirus (PCR) NOT DETECTED (NOT DETECT) 06/12/20 04:29 B. pertussis DNA (PCR) NOT DETECTED (NOT DETECT) 06/12/20 04:29 B.parapertussis DNA PCR NOT DETECTED (NOT DETECT) 06/12/20 04:29 C. pneumoniae DNA (PCR) NOT DETECTED (NOT DETECT) 06/12/20 04:29 Coronavirus OC43 (PCR) NOT DETECTED (NOT DETECT) 06/12/20 04:29 Coronavirus HKU1 (PCR) NOT DETECTED (NOT DETECT) 06/12/20 04:29 Coronavirus 229E (PCR) NOT DETECTED (NOT DETECT) 06/12/20 04:29 Coronavirus NL63 (PCR) NOT DETECTED (NOT DETECT) 06/12/20 04:29 Influenza A (H1) PCR NOT DETECTED (NOT DETECT) 06/12/20 04:29 Influ A (H1N1/09) PCR NOT DETECTED (NOT DETECT) 06/12/20 04:29 Influenza A (H3) PCR NOT DETECTED (NOT DETECT) 06/12/20 04:29 Influenza Type A (PCR) NOT DETECTED (NOT DETECT) 06/12/20 04:29 Influenza Type B (PCR) NOT DETECTED (NOT DETECT) 06/12/20 04:29 M. pneumoniae (PCR) NOT DETECTED (NOT DETECT) 06/12/20 04:29 Parainfluenza 1 (PCR) NOT DETECTED (NOT DETECT) 06/12/20 04:29 Parainfluenza 2 (PCR) NOT DETECTED (NOT DETECT) 06/12/20 04:29 Parainfluenza 3 (PCR) NOT DETECTED (NOT DETECT) 06/12/20 04:29 Parainfluenza 4 (PCR) NOT DETECTED (NOT DETECT) 06/12/20 04:29 RSV (PCR) NOT DETECTED (NOT DETECT) 06/12/20 04:29 Entero/Rhino (PCR) NOT DETECTED (NOT DETECT) 06/12/20 04:29 SARS-CoV-2 (PCR) NOT DETECTED (NOT DETECT) 06/12/20 04:29 Impressions: Chest X-Ray 06/12/20 03:13 IMPRESSION: No evidence of acute intrathoracic disease. Plan Health Concerns: Patient with some noncompliance and multiple recurrent hospitalizations for her asthma Plan of Treatment: Establishment of true baseline treatment with breakthrough plan. Outpatient treatment for anxiety. Outpatient sleep study with the likely need for CPAP. Goals: Better control of reactive airway disease Time Spent: Greater than 30 Minutes Stroke Is this a Stroke Patient?: No Acute Heart Failure Is this a Heart Failure Patient?: No
[2020-06-14 14:22] VITALS: BP 132/77
== END 2020-06-14 14:32 | disposition home or self-care (01) | DRG 189 ==
LOC: ER 02:54 → OBSVTOIN 04:54 → EH 04:54 → UNDOADMOB 05:45 → 3W 07:16 → EH 07:16
PROVIDERS: ADMIT Student in an Organized Health Care Education/Training Program; ATTEND Hospitalist
PROC: 5A09457 Assistance with Respiratory Ventilation, 24-96 Consecutive Hours, Continuous Positive Airway Pressure (ICD-10-PCS; principal; 2020-06-12)
DX: J96.01 Acute respiratory failure with hypoxia (principal); J45.31 Mild persistent asthma with (acute) exacerbation; Z68.41 Body mass index [BMI] 40.0-44.9, adult; Z20.822 Contact with and (suspected) exposure to COVID-19; R19.7 Diarrhea, unspecified; E86.9 Volume depletion, unspecified; E66.01 Morbid (severe) obesity due to excess calories; K21.9 Gastro-esophageal reflux disease without esophagitis; M06.9 Rheumatoid arthritis, unspecified; R00.0 Tachycardia, unspecified; F41.0 Panic disorder [episodic paroxysmal anxiety]; Z79.899 Other long term (current) drug therapy; Z86.16 Personal history of COVID-19; Z79.51 Long term (current) use of inhaled steroids; Z79.52 Long term (current) use of systemic steroids; Z83.3 Family history of diabetes mellitus; Z82.61 Family history of arthritis; Z80.49 Family history of malignant neoplasm of other genital organs; Z88.1 Allergy status to other antibiotic agents; Z88.3 Allergy status to other anti-infective agents; Z91.018 Allergy to other foods
CPT/HCPCS: 36415; 71045; 80048; 80053; 82803; 84703; 85025; 94640; 94660; 96365; 96375; 99285; 0202U; J0131; J2405; J2920; J2930; J3475; J3490; J7030; J7613; S0028